=== PATIENT | male | born 1965 ===

== ENCOUNTER 2016-11-21 08:51 | Inpatient (IN) | payer MEDICAID, OTHER ==
[2016-11-21 08:51] VITALS: BMI 27.4
[2016-11-21 10:43] LABS: ADD MANUAL DIFF? NO
--- NOTE | 2016-11-21 10:45 | RAD ---
HISTORY: psych eval COMPARISON: No prior. FINDINGS: LUNGS: No active pulmonary disease. PLEURA: No significant pleural effusion identified, no pneumothorax apparent. CARDIOVASCULAR: Normal. OSSEOUS STRUCTURES: No significant abnormalities. VISUALIZED UPPER ABDOMEN: Normal. OTHER FINDINGS: None. IMPRESSION: No active disease.
[2016-11-21 10:46] LABS: BASO # 0.02 K/mm3 (0.0-2.0); BASO % 0.4 % (0.0-3.0); EOS % 0.4 % (1.5-5.0); GRAN % 73.4 % (50.0-68.0); LYMPH # 0.4 (1.2-3.4); LYMPH % 9.1 % (22.0-35.0); MEAN CELL VOLUME 61.3 fL (80.0-105.0); MEAN CORPUSCULAR HEMOGLOBIN 17.4 pg (25.0-35.0); MEAN CORPUSCULAR HGB CONC 28.4 g/dl (31.0-37.0); MONO # 0.8 (0.1-0.6); MONO % 16.7 % (1.0-6.0); PLATELET COUNT 72 10^3/uL (120.0-450.0); RED CELL DISTRIBUTION WIDTH 24.3 % (11.5-14.5); WHITE BLOOD COUNT 4.5 10^3/ul (4.5-11.0)
[2016-11-21 10:53] LABS: HEMATOCRIT 21.5 % (42.0-52.0)
[2016-11-21 10:56] LABS: ALB/GLOB RATIO 0.7 (1.1-1.8); ALKALINE PHOSPHATASE 160 U/L (38-133); ALT/SGPT 41 U/L (7-56); AST/SGOT 75 U/L (15-59); BILIRUBIN,TOTAL 3.7 mg/dL (0.2-1.3); BLOOD UREA NITROGEN 12 mg/dL (7-21); CALCIUM 7.9 mg/dL (8.4-10.5); CARBON DIOXIDE 24 mmol/L (21-33); CHLORIDE 98 mmol/L (98-107); GFR AFRICAN-AMERICAN > 60; GLUCOSE,RANDOM 116 mg/dL (70-110); POTASSIUM 3.1 mmol/L (3.6-5.0); SODIUM 130 mmol/L (132-148); TOTAL PROTEIN 7.7 g/dL (5.8-8.3)
[2016-11-21 11:00] LABS: PH,URINE 6.5 (4.7-8.0); URINE APPEARANCE CLEAR (CLEAR); URINE BILIRUBIN SMALL (NEGATIVE); URINE BLOOD TRACE-INTACT (NEGATIVE); URINE COLOR YELLOW (YELLOW); URINE GLUCOSE (UA) NEGATIVE (NEGATIVE); URINE KETONE NEGATIVE (NEGATIVE); URINE LEUKOCYTE ESTERASE NEGATIVE Leu/uL (NEGATIVE); URINE PROTEIN NEGATIVE mg/dL (<30 mg/dL)
[2016-11-21 11:05] LABS: URINE BACTERIA TRACE (NEG); URINE RBC 0 - 2 /hpf (0-2); URINE WBC NEGATIVE /hpf (0-6)
[2016-11-21] MEDS ORDERED: Multivitamin (MVI) 10 ML, Thiamine 100 MG, Folic Acid 1 MG in Sodium Chloride 0.9% 1,00... IV ONE (14:27)
[2016-11-21] MEDS ORDERED: Potassium Chloride 40 mEq/30 ml LIQ UD PO ONE (14:28)
[2016-11-21] MEDS ORDERED: Potassium Chloride 20 mEq/15 ml LIQ UD PO STA (14:30)
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
[2016-11-21 15:20] LABS: HEMATOCRIT 21.1 % (42.0-52.0)
[2016-11-21 15:28] LABS: IRON 10 ug/dL (45-180)
--- NOTE | 2016-11-21 16:45 | CARD ---
APPROVED REPORT EKG Measurement Heart [id number] <Conclusion> Normal sinus rhythm Prolonged QT Abnormal ECG
--- NOTE | 2016-11-21 17:32 | CP.PCM.PN ---
Addendum entered and electronically signed by Edd Collins DO 11/21/16 17: 55: Past medical hx was retrieved from previous charts as pt was confused and not able to answer any questions appropriately. PMD: unknown Past medical hx: GI bleed, gastric ulcers, esophageal varices, cirrhosis, Hep C , and alcohol abuse Past surgical hx: EGD Social hx: drinks alcohol daily (stopped 3 weeks ago), smokes marijuana, denies tobacco use Family hx: bipolar disorder Allergies: NKDA Meds: multivitamin Original Note: <Edd Collins - Last Filed: 11/21/16 17:21> Subjective - Date & Time of Evaluation Date of Evaluation: 11/21/16 Time of Evaluation: 17:21 - Subjective Subjective: Rapid Response Note INTER[employer]IAL [employer]ODUCER was called at 1710 in the ultrasound suite. Pt was an admitted patient that was in the ED still due to a lack of beds on the floor. Pt was having an abdominal ultrasound when he started displaying seizure-like activity at bedside for a short period of time. Pt was then transferred back to the emergency room where he started having another seizure. Initial vital signs were : Temp: 98.6, BP: 169/78, HR: 110, RR: 20, SpO2: 98%. Pt was found to be in a post-ictal state. Pt was given 2 mg of ativan at this time. Pt was able to adequately protect his airway. Upon interview of patient, he was confused and unable to appropriately answer questions. Pt was also noted to have urinary incontinence during that episode and did not have any evidence of tongue biting. Pt initially complained of hallucinations, which was his initial reason for presentation to the hospital. Pt was also anemic upon presentation to ED and was being transfused a unit of blood. ROS unaobtainable due to pt mental status. Objective - Vital Signs/Intake and Output Vital Signs (last 24 hours): Temp Pulse Resp BP Pulse Ox 98.4 F 99 H 16 136/70 99 11/21/16 16:19 11/21/16 16:19 11/21/16 16:19 11/21/16 16:19 11/21/16 13:00 Intake and Output: 11/21/16 11/21/16 06:59 18:59 Intake Total 0 Balance 0 - Medications Medications: Current Medications Chlordiazepoxide (Librium) 10 mg PO Q8 CESAR PRN Reason: Protocol Folic Acid (Folic Acid) 1 mg PO DAILY [facility] Multivitamins/Vitamin C 10 ml/Thiamine HCl 100 mg/ Folic Acid 1 mg/ Sodium Chloride 1,011.2 mls @ 100 mls/hr IV .Q10H7M ONE Stop: 11/22/16 00:33 Lorazepam (Ativan) 1 mg PO Q3 PRN; Protocol PRN Reason: SYMPTOMS OF ALCOHOL WITHDRAWAL Multivitamins (Thera Tab) 1 tab PO DAILY [facility] Ondansetron HCl (Zofran Inj) 4 mg IVP Q6 PRN PRN Reason: Nausea/Vomiting Pantoprazole Sodium (Protonix Ec Tab) 40 mg PO DAILY [facility] Thiamine HCl (Vitamin B1 Tab) 100 mg PO DAILY CESAR - Labs Labs: 11/21/16 14:57 - Constitutional Appears: Confused - Head Exam Head Exam: ATRAUMATIC, NORMAL INSPECTION, NORMOCEPHALIC - Eye Exam Eye Exam: Normal appearance, PERRL - ENT Exam ENT Exam: Mucous Membranes Moist, Normal Exam - Respiratory Exam Respiratory Exam: Clear to Ausculation Bilateral, NORMAL BREATHING PATTERN. absent: Rales, Rhonchi - Cardiovascular Exam Cardiovascular Exam: RRR, +S1, +S2 - GI/Abdominal Exam GI & Abdominal Exam: Soft, Tenderness (Diffuse tenderness to palpation), Normal Bowel Sounds - Exam Additional comments: Pants appear to be soiled with urine - Extremities Exam Extremities Exam: Normal Inspection. absent: Calf Tenderness, Pedal Edema - Neurological Exam Neurological Exam: Awake, CN II-XII Intact. absent: Alert, Oriented x3 - Skin Skin Exam: Intact, Normal Color, Warm Assessment and Plan - Assessment and Plan (Free Text) Plan: 55 y/o M with PMH of GI bleed, gastric ulcers, esophageal varices, cirrhosis, hep C, and alcohol abuse presents with [employer]UCER after witnesses seizure. Pt evaluated by house doctor and clearing hand. Pt will have Stat Head, abdomen, and pelvis CT. In addition, stat troponins, mag level, and phosphorus level were ordered. Pt will be transferred to the ICU for further care and management. Seizure - Head, abdomen, and pelvis CT stat - Ativan 2 mg given stat - Labs ordered: Troponin, magnesium, phosphorus - Seizure precautions - Neurochecks q1 x4, q4 x24 <Pilar Moss - Last Filed: 11/21/16 19:29> Objective - Vital Signs/Intake and Output Vital Signs (last 24 hours): Temp Pulse Resp BP Pulse Ox 98.4 F 97 H 16 131/72 99 11/21/16 18:22 11/21/16 19:06 11/21/16 19:06 11/21/16 19:06 11/21/16 19:06 Intake and Output: 11/21/16 11/22/16 18:59 06:59 Intake Total 325 Balance 325 - Medications Medications: Current Medications Chlordiazepoxide (Librium) 10 mg PO Q8 CESAR PRN Reason: Protocol Folic Acid (Folic Acid) 1 mg PO DAILY [facility]ES[facility] Multivitamins/Vitamin C 10 ml/Thiamine HCl 100 mg/ Folic Acid 1 mg/ Sodium Chloride 1,011.2 mls @ 100 mls/hr IV .Q10H7M ONE Stop: 11/22/16 00:33 Last Admin: 11/21/16 18:46 Dose: 100 mls/hr Levetiracetam (Keppra 500mg Ivpb) 100 mls @ 400 mls/hr IVPB Q12 CESAR Lorazepam (Ativan) 1 mg PO Q3 PRN; Protocol PRN Reason: SYMPTOMS OF ALCOHOL WITHDRAWAL Multivitamins (Thera Tab) 1 tab PO DAILY [facility] Ondansetron HCl (Zofran Inj) 4 mg IVP Q6 PRN PRN Reason: Nausea/Vomiting Pantoprazole Sodium (Protonix Ec Tab) 40 mg PO DAILY CESAR Thiamine HCl (Vitamin B1 Tab) 100 mg PO DAILY CESAR - Labs Labs: 11/21/16 14:57 Attending/Attestation - Attestation I have personally seen and examined this patient.: Yes I have fully participated in the care of the patient.: Yes I have reviewed all pertinent clinical information, including history, physical exam and plan: Yes Notes (Text): 11/21/16 19:[address] Scales.Pt seen By Dr frausto,accepted to the ICU. 11/21/16 19:29
--- NOTE | 2016-11-21 17:41 | CT ---
PROCEDURE: CT HEAD WITHOUT CONTRAST. HISTORY: r/o bleed COMPARISON: None available. TECHNIQUE: Axial computed tomography images were obtained through the head/brain without intravenous contrast. Radiation dose: Total exam DLP = 1602.58 mGy-cm. This CT exam was performed using one or more of the following dose reduction techniques: Automated exposure control, adjustment of the mA and/or kV according to patient size, and/or use of iterative reconstruction technique. FINDINGS: Examination mildly limited due to patient motion artifact. HEMORRHAGE: No intracranial hemorrhage. BRAIN: No mass effect or edema. No atrophy or chronic microvascular ischemic changes. VENTRICLES: Unremarkable. No hydrocephalus. CALVARIUM: Unremarkable. PARANASAL SINUSES: Unremarkable as visualized. No significant inflammatory changes. MASTOID AIR CELLS: Unremarkable as visualized. No inflammatory changes. OTHER FINDINGS: None. IMPRESSION: No intracranial mass, hemorrhage or evidence of acute infarct.
--- NOTE | 2016-11-21 18:04 | CT ---
PROCEDURE: CT Abdomen and Pelvis without intravenous contrast HISTORY: severe anemia, bleed COMPARISON: 07/10/2014. TECHNIQUE: Helical scanning 18 to the abdomen pelvis followed by sagittal coronal reconstructions.. Contrast Dose: Radiation dose: Total exam DLP = 574 mGy-cm. This CT exam was performed using one or more of the following dose reduction techniques: Automated exposure control, adjustment of the mA and/or kV according to patient size, and/or use of iterative reconstruction technique. FINDINGS: LOWER THORAX: Mild ground-glass density and interstitial changes. LIVER: Mild nodularity of the contour of the liver compatible with cirrhosis. GALLBLADDER AND BILE DUCTS: Unremarkable. PANCREAS: Unremarkable. No gross lesion or ductal dilatation. SPLEEN: Mild splenomegaly compatible with portal hypertension. ADRENALS: Unremarkable. No mass. KIDNEYS AND URETERS: Unremarkable. No hydronephrosis. No solid mass. VASCULATURE: Unremarkable. No aortic aneurysm. BOWEL: Unremarkable. No obstruction. No gross mural thickening. APPENDIX: Unremarkable. Normal appendix. PERITONEUM: Unremarkable. No free fluid. No free air. LYMPH NODES: Unremarkable. No enlarged lymph nodes. BLADDER: Unremarkable. REPRODUCTIVE: Unremarkable. BONES: No acute fracture. OTHER FINDINGS: None. IMPRESSION: Cirrhosis with splenomegaly compatible with portal hypertension.
--- NOTE | 2016-11-21 18:13 | US ---
HISTORY: anemia, organomegaly COMPARISON: None. TECHNIQUE: Sonographic evaluation of the abdomen. FINDINGS: LIVER: Measures 15.7 cm. Diffusely increased echogenicity of the liver parenchyma. Consistent with fatty infiltrate. Nodular contour suggestive of hepatic cirrhosis. No mass. No biliary ductal dilatation. GALLBLADDER: No cholelithiasis. Mild nonspecific mural thickening. No pericholecystic fluid. Negative sonographic Cadena's sign. COMMON BILE DUCT: Measures 5 mm. No stones. No dilatation. PANCREAS: Limited visualization RIGHT KIDNEY: Measures 11.8cm. Normal echogenicity. No calculus, mass, or hydronephrosis. LEFT KIDNEY: Measures 12.3cm. Normal echogenicity. No calculus, mass, or hydronephrosis. SPLEEN: Normal in size and contour. No mass. AORTA: No aneurysmal dilatation. IVC: Unremarkable. OTHER FINDINGS: None. IMPRESSION: Wake probable hepatic cirrhosis. Fatty liver. Nonspecific mild mural thickening of the gallbladder. No evidence of cholelithiasis or cholecystitis.
[2016-11-21 19:47] LABS: MEAN CELL VOLUME 63.7 fL (80.0-105.0); MEAN CORPUSCULAR HEMOGLOBIN 18.4 pg (25.0-35.0); MEAN CORPUSCULAR HGB CONC 28.9 g/dl (31.0-37.0); PLATELET COUNT 65 10^3/uL (120.0-450.0); RED CELL DISTRIBUTION WIDTH 25.4 % (11.5-14.5); WHITE BLOOD COUNT 3.3 10^3/ul (4.5-11.0)
[2016-11-21 19:54] LABS: VENOUS BLOOD GAS BASE EXCESS -1.1 mmol/L (0.0-2.0); VENOUS BLOOD PH 7.33 (7.32-7.43)
[2016-11-21 19:55] LABS: HEMATOCRIT 21.1 % (42.0-52.0)
[2016-11-21 19:57] LABS: PHOSPHOROUS 3.1 mg/dL (2.5-4.5)
[2016-11-21 20:08] LABS: INR 1.68 (0.93-1.08)
[2016-11-21 20:09] LABS: TROPONIN I 0.02 ng/mL
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
[2016-11-21] MEDS: levETIRAcetam 500mg IVPB 100 ML IVPB SCH (22:19)
[2016-11-21 23:25] LABS: VENOUS BLOOD GAS BASE EXCESS 0.1 mmol/L (0.0-2.0); VENOUS BLOOD PH 7.44 (7.32-7.43)
[2016-11-22 02:17] LABS: HEMATOCRIT 24.6 % (42.0-52.0); MEAN CELL VOLUME 65.1 fL (80.0-105.0); MEAN CORPUSCULAR HEMOGLOBIN 19.3 pg (25.0-35.0); MEAN CORPUSCULAR HGB CONC 29.7 g/dl (31.0-37.0); PLATELET COUNT 68 10^3/uL (120.0-450.0); RED CELL DISTRIBUTION WIDTH 26.6 % (11.5-14.5); WHITE BLOOD COUNT 5.7 10^3/ul (4.5-11.0)
[2016-11-22 06:21] LABS: ALB/GLOB RATIO 0.7 (1.1-1.8); ALKALINE PHOSPHATASE 141 U/L (38-133); ALT/SGPT 39 U/L (7-56); AST/SGOT 91 U/L (15-59); BILIRUBIN,TOTAL 3.7 mg/dL (0.2-1.3); BLOOD UREA NITROGEN 7 mg/dL (7-21); CALCIUM 7.3 mg/dL (8.4-10.5); CARBON DIOXIDE 27 mmol/L (21-33); CHLORIDE 104 mmol/L (98-107); CHOLESTEROL 106 mg/dL (130-200); GFR AFRICAN-AMERICAN > 60; GLUCOSE,RANDOM 96 mg/dL (70-110); MAGNESIUM 2.1 mg/dL (1.7-2.2); PHOSPHOROUS 3.3 mg/dL (2.5-4.5); POTASSIUM 3.3 mmol/L (3.6-5.0); SODIUM 136 mmol/L (132-148); TOTAL PROTEIN 6.6 g/dL (5.8-8.3)
[2016-11-22 06:23] LABS: HEMATOCRIT 25.1 % (42.0-52.0); MEAN CELL VOLUME 66.2 fL (80.0-105.0); MEAN CORPUSCULAR HEMOGLOBIN 19.5 pg (25.0-35.0); MEAN CORPUSCULAR HGB CONC 29.5 g/dl (31.0-37.0); PLATELET COUNT 71 10^3/uL (120.0-450.0); RED CELL DISTRIBUTION WIDTH 26.3 % (11.5-14.5); WHITE BLOOD COUNT 5.6 10^3/ul (4.5-11.0)
[2016-11-22 06:30] LABS: INR 1.55 (0.93-1.08); PARTIAL THROMBOPLASTIN TIME 31.7 Seconds (23.7-30.8)
[2016-11-22 06:37] LABS: ADD MANUAL DIFF? YES
[2016-11-22] MEDS ORDERED: Lactulose 10 gm/15 ml (Rectal Use) PR ONE ×2 (07:52→16:00)
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
[2016-11-22] MEDS ORDERED: Folic Acid 1 MG, Thiamine 100 MG, Multivitamin (MVI) 10 ML in Dextrose 5% In Water 1,00... IV SCH (08:15)
--- NOTE | 2016-11-22 09:16 | PN ---
DATE: 11/22/2016 SUBJECTIVE: The patient is resting in bed, continues to be confused, requiring soft restraints. The patient has no obvious respiratory distress and no complaints of pain, no nausea or vomiting, no [place] rrhea, no fever or chills at this time. PHYSICAL EXAMINATION: VITAL SIGNS: Temperature is 98.2, pulse is 95, respirations are 18, and BP is 130/76, O2 saturation is 100% on room air. HEENT: Head is atraumatic, normocephalic. Eyes reactive to light. Ears, nose and throat seemed to be within normal limits. NECK: Supple, no JVD, no thyroid enlargement, no lymph nodes. CARDIOVASCULAR: Heart has a regular rate and rhythm. Normal S1, S2. LUNGS: Reveal good breath sounds bilaterally. ABDOMEN: Soft, nontender, normal bowel sounds. No organomegaly noted. GENITALIA AND RECTAL: Deferred. MUSCULOSKELETAL: No joint deformities. EXTREMITIES: Reveal no significant edema. NEUROLOGIC: The patient continues to have some altered mental status, but moving all extremities. N ote that the patient is in alcohol withdrawal. LABORATORY DATA: Reveal that he has a white count of 5.6, hemoglobin is 7.4, hematocrit is 25.1 with platelets of 71,000. Sodium is 136, potassium 3.3, chloride 104, CO2 of 27 with a BUN of 7, creatin ine of 0.6, a glucose of 96. IMPRESSION: The patient has ETOH abuse and ETOH withdrawal. Note that the patient did have a seizur e felt to be an ETOH withdrawal seizure. The patient has anemia also felt to be secondary to ETOH tucker [place] marrow suppression. There is no active bleeding site. The patient has thrombocytopenia, has a hi story of cirrhosis, hepatitis C as well as schizophrenia. PLAN: We will monitor his hemoglobin closely and continue the patient on Keppra for the seizures. C ontinue with IV hydration. The patient is getting lactulose and we will continue with multivitamins as well as Librium when needed. The patient is also getting Pepcid and we will continue to follow anabelle felix along with the other consultants and the primary care doctor. Andrade Frye MD cc: [id number] TT: 11/22/2016 09:15:07 Confirmation # [id number] Dictation # [id number]
[2016-11-22 09:49] LABS: BAND 2 % (0-2); NEUTROPHIL 75 % (50.0-70.0)
[2016-11-22 09:50] LABS: ANISOCYTOSIS 2+; ATYPICAL LYMPHOCYTE 2 % (0.0-0.0); HYPOCHROMIA 2+; MICROCYTOSIS 2+; OVALOCYTES SLIGHT; PLATELET ESTIMATE LOW (NORMAL); POIKILOCYTOSIS 1+; POLYCHROMASIA SLIGHT; TEAR DROP CELLS SLIGHT
[2016-11-22 09:51] LABS: TARGET CELLS 1+
[2016-11-22] MEDS: Folic Acid 1 MG, Thiamine 100 MG, Multivitamin (MVI) 10 ML, Potassium Chloride 40 MEQ i... IV SCH ×2 (09:55→19:00)
[2016-11-22] MEDS: Multivitamin Therapeutic Tab PO SCH (09:57)
[2016-11-22] MEDS: levETIRAcetam 500mg IVPB 100 ML IVPB SCH ×2 (10:00→21:35)
[2016-11-22] MEDS ORDERED: Pantoprazole 40 mg EC Tab PO SCH (10:00)
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
--- NOTE | 2016-11-22 12:13 | CP.PCM.PCO ---
Physician Communication Note - Physician Communication Note Physician Communication Note: Pt is too sedated for evaluation, to f/u at later date. D/W Dr. Scales
[2016-11-22 13:29] LABS: HEMATOCRIT 26.6 % (42.0-52.0); MEAN CELL VOLUME 66.3 fL (80.0-105.0); MEAN CORPUSCULAR HEMOGLOBIN 19.7 pg (25.0-35.0); MEAN CORPUSCULAR HGB CONC 29.7 g/dl (31.0-37.0); PLATELET COUNT 78 10^3/uL (120.0-450.0); RED CELL DISTRIBUTION WIDTH 26.2 % (11.5-14.5); WHITE BLOOD COUNT 5.7 10^3/ul (4.5-11.0)
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
[2016-11-22] MEDS ORDERED: Ferrous Sulfate 300 mg/5 mL Liq UD PO SCH (16:00)
[2016-11-23] MEDS: Folic Acid 1 MG, Thiamine 100 MG, Multivitamin (MVI) 10 ML, Potassium Chloride 40 MEQ i... IV SCH ×2 (05:03→17:49)
[2016-11-23 06:36] LABS: ADD MANUAL DIFF? NO
[2016-11-23 06:58] LABS: ALB/GLOB RATIO 0.7 (1.1-1.8); ALKALINE PHOSPHATASE 142 U/L (38-133); ALT/SGPT 43 U/L (7-56); AST/SGOT 67 U/L (15-59); BILIRUBIN,TOTAL 4.2 mg/dL (0.2-1.3); BLOOD UREA NITROGEN 5 mg/dL (7-21); CARBON DIOXIDE 28 mmol/L (21-33); CHLORIDE 102 mmol/L (98-107); GFR AFRICAN-AMERICAN > 60; GLUCOSE,RANDOM 104 mg/dL (70-110); POTASSIUM 3.4 mmol/L (3.6-5.0); SODIUM 135 mmol/L (132-148); TOTAL PROTEIN 6.4 g/dL (5.8-8.3)
[2016-11-23 07:17] LABS: BASO # 0.04 K/mm3 (0.0-2.0); BASO % 0.9 % (0.0-3.0); EOS # 0.2 (0.0-0.7); EOS % 5.2 % (1.5-5.0); GRAN # 2.56 (1.4-6.5); GRAN % 58.2 % (50.0-68.0); HEMATOCRIT 25.6 % (42.0-52.0); LYMPH # 0.5 (1.2-3.4); LYMPH % 11.4 % (22.0-35.0); MEAN CORPUSCULAR HEMOGLOBIN 19.6 pg (25.0-35.0); MEAN CORPUSCULAR HGB CONC 29.3 g/dl (31.0-37.0); MONO # 1.1 (0.1-0.6); MONO % 24.3 % (1.0-6.0); PLATELET COUNT 81 10^3/uL (120.0-450.0); RED CELL DISTRIBUTION WIDTH 26.4 % (11.5-14.5); WHITE BLOOD COUNT 4.4 10^3/ul (4.5-11.0)
--- NOTE | 2016-11-23 07:44 | CP.PCM.PN ---
<NiurkaJordan - Last Filed: 11/23/16 08:50> Subjective - Date & Time of Evaluation Date of Evaluation: 11/23/16 Time of Evaluation: 07:44 - Subjective Subjective: PGY4 GI Fellow Progress Note Patient seen and examined bedside this morning. The patient is much more alert and conversant today. Denies any complaints at present. Had 3 BM yesterday following administration of rectal and PO lactulose. He denies any abdominal pain, fever, chills, nausea, vomiting. Does recall some of the events which came to bring him to the hospital but details are hazy. Denies recent EtOH use. 12 system ROS performed and negative except where stated. Objective - Vital Signs/Intake and Output Vital Signs (last 24 hours): Temp Pulse Resp BP Pulse Ox 99.5 F 105 H 17 146/84 100 11/22/16 11:45 11/23/16 07:00 11/23/16 07:00 11/23/16 06:00 11/23/16 05:00 Intake and Output: 11/23/16 11/23/16 06:59 18:59 Intake Total 1800 Output Total 700 Balance 1100 - Medications Medications: Current Medications Chlordiazepoxide (Librium) 10 mg PO Q8 [facility] PRN Reason: Protocol Last Admin: 11/23/16 05:00 Dose: 10 mg Folic Acid (Folic Acid) 1 mg PO DAILY [facility] Last Admin: 11/22/16 09:56 Dose: Not Given Levetiracetam (Keppra 500mg Ivpb) 100 mls @ 400 mls/hr IVPB Q12 [facility] Last Admin: 11/22/16 21:35 Dose: 400 mls/hr Folic Acid 1 mg/ Thiamine HCl 100 mg/ Multivitamins/Vitamin C 10 ml/ Potassium Chloride 40 meq/ Dextrose 1,031.2 mls @ 100 mls/hr IV .[id number] [facility] Last Admin: 11/23/16 05:03 Dose: 100 mls/hr Lactulose (Enulose) 30 gm PO BID [facility] Last Admin: 11/22/16 17:50 Dose: 30 gm Lorazepam (Ativan) 1 mg IVP Q2H PRN; Protocol PRN Reason: Symptoms of alcohol withdrawl Last Admin: 11/22/16 04:12 Dose: 1 mg Multivitamins (Thera Tab) 1 tab PO DAILY [facility] Last Admin: 11/22/16 09:57 Dose: Not Given Ondansetron HCl (Zofran Inj) 4 mg IVP Q6 PRN PRN Reason: Nausea/Vomiting Pantoprazole Sodium (Protonix Inj) 40 mg IVP Q12 [facility] Last Admin: 11/22/16 21:35 Dose: 40 mg Thiamine HCl (Vitamin B1 Tab) 100 mg PO DAILY [facility] Last Admin: 11/22/16 09:57 Dose: Not Given - Labs Labs: 11/23/16 06:00 11/23/16 06:00 PT 16.7 Seconds (9.9-11.8) H 11/22/16 05:30 INR 1.55 (0.93-1.08) H 11/22/16 05:30 APTT 31.7 Seconds (23.7-30.8) H 11/22/16 05:30 - Constitutional Appears: Non-toxic, No Acute Distress - Eye Exam Eye Exam: EOMI, PERRL - ENT Exam ENT Exam: Mucous Membranes Dry - Respiratory Exam Respiratory Exam: Clear to Ausculation Bilateral. absent: Rales, Rhonchi, Wheezes - Cardiovascular Exam Cardiovascular Exam: RRR, +S1, +S2 - GI/Abdominal Exam GI & Abdominal Exam: Soft, Normal Bowel Sounds. absent: Distended, Firm, Guarding, Rigid, Tenderness - Extremities Exam Extremities Exam: Normal Inspection. absent: Pedal Edema - Neurological Exam Neurological Exam: Alert, Awake. absent: Oriented x3 (AAOx2 (person, time)) - Psychiatric Exam Psychiatric exam: Normal Affect, Normal Mood - Skin Skin Exam: Dry, Warm Assessment and Plan - Assessment and Plan (Free Text) Assessment: Patient is a 51yo male with PMHx significant for EtOH abuse, decompensated cirrhosis with esophageal varices, HCV, PUD who was brought to our facility with altered mentation. -Decompensated cirrhosis with h/o esophageal varices -Acute encephalopathy, suspect hepatic encephalopathy complicated by withdrawal seizures/post-ictal state -EtOH withdrawal seizure -Pancytopenia, suspect myelosuppression in setting of chronic EtOH abuse -Iron deficiency anemia Plan: -Slight increase in hyperbilirubinemia, LFTs otherwise relatively unchanged - check direct bilirubin level -Still with no overt GI bleeding -Passed 3 BM since initiation of lactulose, more alert now; continue at 30g PO BID and titrate to 2-3 BM/day -Minimize sedating agents as possible -On Keppra given witnessed seizures in ED/Ultrasound -Patient would ultimately benefit from EGD (h/o varices, cirrhosis)/colonoscopy (screening) but in absence of overt blood loss, these are non-emergent; will discuss plan for EGD early this week -Monitor CBC, CMP, INR <Stephan Becerra MD - Last Filed: 11/23/16 18:25> Objective - Vital Signs/Intake and Output Vital Signs (last 24 hours): Temp Pulse Resp BP Pulse Ox 99.0 F 108 H 23 132/83 95 11/23/16 16:00 11/23/16 17:05 11/23/16 17:05 11/23/16 17:05 11/23/16 17:05 Intake and Output: 11/23/16 11/23/16 06:59 18:59 Intake Total 1800 2080 Output Total 700 1475 Balance 1100 605 - Medications Medications: Current Medications Chlordiazepoxide (Librium) 10 mg PO Q8 [facility] PRN Reason: Protocol Last Admin: 11/23/16 13:03 Dose: 10 mg Folic Acid (Folic Acid) 1 mg PO DAILY [facility] Last Admin: 11/23/16 09:22 Dose: 1 mg Levetiracetam (Keppra 500mg Ivpb) 100 mls @ 400 mls/hr IVPB Q12 [facility] Last Admin: 11/23/16 09:22 Dose: 400 mls/hr Folic Acid 1 mg/ Thiamine HCl 100 mg/ Multivitamins/Vitamin C 10 ml/ Potassium Chloride 40 meq/ Dextrose 1,031.2 mls @ 100 mls/hr IV .[id number] [facility] Last Admin: 11/23/16 17:49 Dose: 100 mls/hr Lactulose (Enulose) 30 gm PO BID [facility] Last Admin: 11/23/16 17:16 Dose: 30 gm Lorazepam (Ativan) 1 mg IVP Q2H PRN; Protocol PRN Reason: Symptoms of alcohol withdrawl Last Admin: 11/22/16 04:12 Dose: 1 mg Multivitamins (Thera Tab) 1 tab PO DAILY [facility] Last Admin: 11/23/16 09:22 Dose: 1 tab Ondansetron HCl (Zofran Inj) 4 mg IVP Q6 PRN PRN Reason: Nausea/Vomiting Pantoprazole Sodium (Protonix Inj) 40 mg IVP Q12 [facility] Last Admin: 11/23/16 09:22 Dose: 40 mg Thiamine HCl (Vitamin B1 Tab) 100 mg PO DAILY [facility] Last Admin: 11/23/16 09:22 Dose: 100 mg - Labs Labs: 11/23/16 06:00 11/23/16 06:00 PT 16.7 Seconds (9.9-11.8) H 11/22/16 05:30 INR 1.55 (0.93-1.08) H 11/22/16 05:30 APTT 31.7 Seconds (23.7-30.8) H 11/22/16 05:30 Attending/Attestation - Attestation I have personally seen and examined this patient.: Yes I have fully participated in the care of the patient.: Yes I have reviewed all pertinent clinical information, including history, physical exam and plan: Yes Notes (Text): 11/23/16 18:24 Patient seen with GI fellow on rounds. 51 yr old male with PMHx significant for EtOH abuse, decompensated cirrhosis with esophageal varices, HCV, PUD who was brought to our facility with altered mentation likely with HE. May have component of withdrawal seizures. Pancytopenia, suspect myelosuppression in setting of chronic EtOH abuse. Last EGD in 02/2015 showing Grade A varices and antral ulcers. HE resolved after lactulose. Will benefit from EGd due to past history of ulcer and varices. Currently drinking alcohol hence not a transplant candidate. Will continue Lactulose 30g PO BID ; titrate to 2 BM/day. Daily MELD labs. Current MELD -19. Needs cTAP with triple phase contrast to r/o HCC
--- NOTE | 2016-11-23 08:41 | PN ---
DATE: 11/23/2016 SUBJECTIVE: The patient is resting in bed, continues to be confused, in soft restraints. The patien t has no distress, no obvious pain, no shortness of breath, no nauseousness, no vomiting or diarrhea and no fever, chills at this time. Continues to get IV fluids. PHYSICAL EXAMINATION: VITAL SIGNS: His temperature is 99.5, his pulse is 109, respirations are 16, blood pressure is 115/6 6. SKIN: Warm and dry. HEAD: Atraumatic, normocephalic. EYES: Reactive to light. EARS, NOSE AND THROAT: Seem to be within normal limits. NECK: Supple. No JVD, no thyroid enlargement, no lymph nodes. HEART: Has a regular rate and rhythm. Normal S1, S2. LUNGS: Reveal good breath sounds bilaterally. ABDOMEN: Soft, decreased bowel sounds. GENITALIA AND RECTAL: Deferred. MUSCULOSKELETAL: No joint deformities. EXTREMITIES: Reveal trace lower extremity edema. NEUROLOGIC: He is slightly confused secondary to ETOH withdrawal. LABORATORIES: Reveal a white count of 4.4, hemoglobin of 7.5, hematocrit 25.6 with platelets of 81,0 00. Sodium is 136, potassium 3.3, chloride 104, CO2 of 27, BUN of 7, creatinine of 0.6 and glucose o f 96. IMPRESSION: The patient has ethyl alcohol abuse and ethyl alcohol withdrawal. The patient had ethyl alcohol withdrawal seizure and is noted to have anemia and this is felt to be secondary to ethyl alc ohol bone marrow suppression. There is no active bleeding. The patient has thrombocytopenia, cirrho sis of the liver, hepatitis C as well as schizophrenia. PLAN: We will continue to monitor his hemoglobin closely. He is on Keppra for the seizures. The charissa araujo is getting IV hydration and we will continue the lactulose, multivitamins, Librium, and Pepcid. Andrade Frye MD cc: [id number] TT: 11/23/2016 08:41:22 Confirmation # [id number] Dictation # [id number]
[2016-11-23] MEDS: levETIRAcetam 500mg IVPB 100 ML IVPB SCH ×2 (09:22→22:12)
[2016-11-23] MEDS: Multivitamin Therapeutic Tab PO SCH (09:22)
[2016-11-23] MEDS ORDERED: Potassium Chloride 20 mEq ER Tab PO ONE (12:12)
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
[2016-11-24] MEDS ORDERED: Dextrose 5%/0.45% NS 1,000 ML IV SCH (05:45)
[2016-11-24 05:57] LABS: HEMATOCRIT 26.5 % (42.0-52.0); MEAN CELL VOLUME 66.8 fL (80.0-105.0); MEAN CORPUSCULAR HEMOGLOBIN 19.1 pg (25.0-35.0); MEAN CORPUSCULAR HGB CONC 28.7 g/dl (31.0-37.0); PLATELET COUNT 110 10^3/uL (120.0-450.0); RED CELL DISTRIBUTION WIDTH 27.1 % (11.5-14.5)
[2016-11-24 06:00] LABS: ALB/GLOB RATIO 0.7 (1.1-1.8); ALKALINE PHOSPHATASE 166 U/L (38-133); ALT/SGPT 41 U/L (7-56); AST/SGOT 80 U/L (15-59); BILIRUBIN,TOTAL 3.8 mg/dL (0.2-1.3); BLOOD UREA NITROGEN 3 mg/dL (7-21); CALCIUM 7.2 mg/dL (8.4-10.5); CARBON DIOXIDE 28 mmol/L (21-33); CHLORIDE 102 mmol/L (95-110); GFR AFRICAN-AMERICAN > 60; GLUCOSE,RANDOM 97 mg/dL (70-110); POTASSIUM 4.1 mmol/L (3.6-5.0); SODIUM 135 mmol/L (132-148); TOTAL PROTEIN 6.4 g/dL (5.8-8.3)
[2016-11-24 06:19] LABS: ADD MANUAL DIFF? YES
[2016-11-24 06:35] LABS: NEUTROPHIL 58 % (50.0-70.0)
[2016-11-24 06:36] LABS: ANISOCYTOSIS 1+; BAND 2 % (0-2); BASOPHIL 2 % (0.0-1.0); EOSINOPHIL 4 % (0.0-3.0); HYPOCHROMIA 2+; PLATELET ESTIMATE LOW (NORMAL)
[2016-11-24 06:38] LABS: MICROCYTOSIS 1+; TARGET CELLS SLIGHT
[2016-11-24] MEDS ORDERED: Midazolam 2 MG/2 ML VIAL ONE (08:24)
[2016-11-24] MEDS ORDERED: Etomidate 20 mg/10ml Inj IV ONE (08:24)
[2016-11-24] MEDS ORDERED: Propofol 10 mg/ml Inj (20 ML) ONE (08:24)
[2016-11-24] MEDS ORDERED: Lidocaine 1% Inj (20ml) ONE (08:25)
--- NOTE | 2016-11-24 09:03 | CP.PCM.PN ---
Subjective - Date & Time of Evaluation Date of Evaluation: 11/24/16 Time of Evaluation: 08:58 - Subjective Subjective: Patient seen and examined. No acute events overnight, altered mental status resolved. He complains of mild LUQ abdominal pain when lying on his side, otherwise denies nausea, vomiting, diarrhea. s/p EGD today showing three small superficial antral ulcers, LA grade A distal erosive esophagitis. Objective - Vital Signs/Intake and Output Vital Signs (last 24 hours): Temp Pulse Resp BP Pulse Ox 98.5 F 98 H 20 146/73 100 11/24/16 04:00 11/24/16 07:00 11/24/16 07:00 11/24/16 07:00 11/24/16 08:27 Intake and Output: 11/24/16 11/24/16 06:59 18:59 Intake Total 1200 Output Total 1200 Balance 0 - Medications Medications: Current Medications Chlordiazepoxide (Librium) 10 mg PO Q8 [facility] PRN Reason: Protocol Last Admin: 11/24/16 05:58 Dose: Not Given Folic Acid (Folic Acid) 1 mg PO DAILY [facility] Last Admin: 11/23/16 09:22 Dose: 1 mg Levetiracetam (Keppra 500mg Ivpb) 100 mls @ 400 mls/hr IVPB Q12 [facility] Last Admin: 11/23/16 22:12 Dose: 400 mls/hr Folic Acid 1 mg/ Thiamine HCl 100 mg/ Multivitamins/Vitamin C 10 ml/ Potassium Chloride 40 meq/ Dextrose 1,031.2 mls @ 100 mls/hr IV .[id number] [facility] Last Admin: 11/23/16 17:49 Dose: 100 mls/hr Dextrose/Sodium Chloride (Dextrose 5%/0.45% Ns 1000 Ml) 1,000 mls @ 80 mls/hr IV .[id number] [facility] Last Admin: 11/24/16 05:45 Dose: 80 mls/hr Lactulose (Enulose) 30 gm PO BID [facility] Last Admin: 11/23/16 17:16 Dose: 30 gm Lorazepam (Ativan) 1 mg IVP Q2H PRN; Protocol PRN Reason: Symptoms of alcohol withdrawl Last Admin: 11/22/16 04:12 Dose: 1 mg Multivitamins (Thera Tab) 1 tab PO DAILY [facility] Last Admin: 11/23/16 09:22 Dose: 1 tab Ondansetron HCl (Zofran Inj) 4 mg IVP Q6 PRN PRN Reason: Nausea/Vomiting Pantoprazole Sodium (Protonix Inj) 40 mg IVP Q12 [facility] Last Admin: 11/23/16 22:00 Dose: 40 mg Thiamine HCl (Vitamin B1 Tab) 100 mg PO DAILY [facility] Last Admin: 11/23/16 09:22 Dose: 100 mg - Labs Labs: 11/24/16 05:30 11/24/16 05:30 PT 16.7 Seconds (9.9-11.8) H 11/22/16 05:30 INR 1.55 (0.93-1.08) H 11/22/16 05:30 APTT 31.7 Seconds (23.7-30.8) H 11/22/16 05:30 Assessment and Plan - Assessment and Plan (Free Text) Assessment: HCV/ETOH decompensated cirrhosis Altered mental status, resolved - hepatic encephalopathy Iron deficiency anemia No evidence of recent/active bleeding noted on EGD today Plan: - Advance diet slowly as tolerated - Continue with lactulose therapy, titrate so patient has 3 bowel movements daily - Continue with PPI therapy - Continue to monitor H/H, no overt bleeding noted - Await biopsy results from EGD - ETOH cessation counseling - Patient would benefit from triple phase liver CT for evaluation of HCC - No ongoing GI issues, patient currently not candidate for liver transplant evaluation or treatment of HCV given ongoing ETOH abuse. Will sign off case, please reconsult as necessary, thank you.
[2016-11-24] MEDS: Multivitamin Therapeutic Tab PO SCH (09:16)
[2016-11-24] MEDS: levETIRAcetam 500mg IVPB 100 ML IVPB SCH (09:17)
[2016-11-24] MEDS: Folic Acid 1 MG, Thiamine 100 MG, Multivitamin (MVI) 10 ML, Potassium Chloride 40 MEQ i... IV SCH (09:49)
[2016-11-24 13:24] LABS: FOLATE 12.2 ng/mL
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
[2016-11-25 00:45] VITALS: O2SAT 94
[2016-11-25 07:44] LABS: ADD MANUAL DIFF? NO
[2016-11-25 08:02] LABS: BASO # 0.08 K/mm3 (0.0-2.0); EOS # 0.3 (0.0-0.7); EOS % 8.1 % (1.5-5.0); GRAN # 1.78 (1.4-6.5); GRAN % 44.8 % (50.0-68.0); HEMATOCRIT 26.6 % (42.0-52.0); LYMPH # 0.9 (1.2-3.4); LYMPH % 21.7 % (22.0-35.0); MEAN CELL VOLUME 66.8 fL (80.0-105.0); MEAN CORPUSCULAR HEMOGLOBIN 19.6 pg (25.0-35.0); MEAN CORPUSCULAR HGB CONC 29.3 g/dl (31.0-37.0); MONO # 0.9 (0.1-0.6); MONO % 23.4 % (1.0-6.0); PLATELET COUNT 123 10^3/uL (120.0-450.0); RED CELL DISTRIBUTION WIDTH 27.9 % (11.5-14.5)
[2016-11-25 08:13] LABS: ALB/GLOB RATIO 0.7 (1.1-1.8); ALKALINE PHOSPHATASE 172 U/L (38-133); ALT/SGPT 42 U/L (7-56); AST/SGOT 75 U/L (15-59); BILIRUBIN,TOTAL 2.7 mg/dL (0.2-1.3); BLOOD UREA NITROGEN 6 mg/dL (7-21); CALCIUM 7.5 mg/dL (8.4-10.5); CARBON DIOXIDE 27 mmol/L (21-33); CHLORIDE 103 mmol/L (98-107); GFR AFRICAN-AMERICAN > 60; GLUCOSE,RANDOM 94 mg/dL (70-110); MAGNESIUM 1.8 mg/dL (1.7-2.2); PHOSPHOROUS 3.1 mg/dL (2.5-4.5); SODIUM 136 mmol/L (132-148); TOTAL PROTEIN 6.3 g/dL (5.8-8.3)
[2016-11-25] MEDS ORDERED: Multivitamin (MVI) 10 ML, Thiamine 100 MG, Folic Acid 1 MG in Dextrose 5% In Water 1,00... IV ONE (08:46)
[2016-11-25] MEDS: Multivitamin Therapeutic Tab PO SCH (10:03)
[2016-11-25 10:06] VITALS: BP 128/87; PULSE 91; RESP 18; TEMP 98.9
[2016-11-25] MEDS ORDERED: Pneumococcal 23-Valent Vaccine IM ONE (13:03)
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
== END 2016-11-25 14:30 | disposition home or self-care (01) | DRG 574 ==
LOC: ED 08:51 → ERH 13:05 → CCU 19:55 → 3RNO 11-24 12:41
PROVIDERS: ADMIT Internal Medicine; ATTEND Hospitalist
PROC: 30233N1 Transfusion of Nonautologous Red Blood Cells into Peripheral Vein, Percutaneous Approach (ICD-10-PCS; principal; 2016-11-21)
PROC: 0DB68ZX Excision of Stomach, Via Natural or Artificial Opening Endoscopic, Diagnostic (ICD-10-PCS; 2016-11-24)
DX: D50.9 Iron deficiency anemia, unspecified (principal); K72.90 Hepatic failure, unspecified without coma; D61.818 Other pancytopenia; I85.10 Secondary esophageal varices without bleeding; K76.6 Portal hypertension; F10.239 Alcohol dependence with withdrawal, unspecified; K74.60 Unspecified cirrhosis of liver; B19.20 Unspecified viral hepatitis C without hepatic coma; E87.6 Hypokalemia; F20.9 Schizophrenia, unspecified; G40.89 Other seizures; K25.9 Gastric ulcer, unspecified as acute or chronic, without hemorrhage or perforation; F12.90 Cannabis use, unspecified, uncomplicated; K29.70 Gastritis, unspecified, without bleeding; K20.9 Esophagitis, unspecified; K44.9 Diaphragmatic hernia without obstruction or gangrene; Y90.0 Blood alcohol level of less than 20 mg/100 ml; K76.0 Fatty (change of) liver, not elsewhere classified; Z78.1 Physical restraint status

== ENCOUNTER 2017-01-04 12:53 | Inpatient (IN) | payer MEDICAID, OTHER ==
[2017-01-04 12:59] VITALS: BMI 29.1
[2017-01-04] MEDS ORDERED: Sodium Chloride 0.9% 1,000 ML IV STA ×2 (13:22→14:14)
--- NOTE | 2017-01-04 13:25 | ED PDOC ---
Arrival/HPI - General Chief Complaint: GI Problem Time Seen by Provider: 01/04/17 12:58 Historian: Patient - History of Present Illness Narrative History of Present Illness (Text): 01/04/17 13:15 A 51 year old male, whose past medical history includes hep C, presents to the emergency department complaining of generalized weakness and dizziness since this morning. Patient reports leg swelling and an episode of hematemesis about 2 hours ago. Patient also notes hematochezia during last bowel movement and currently feels nauseous. Patient denies feeling shaky, chest pain, shortness of breath or any other complaints at this time. Patient notes to drinking alcohol, last drink about 2 hours ago. Time/Duration: 1-3 hours Symptom Onset: Sudden Symptom Course: Unchanged Activities at Onset: Rest Context: Home Past Medical History - Provider Review Nursing Documentation Reviewed: Yes - Infectious Disease Hx of Infectious Diseases: None - Tetanus Immunization Tetanus Immunization: Unknown - Cardiac Hx Cardiac Disorders: No - Pulmonary Hx Respiratory Disorders: Yes Other/Comment: Pt. had some type of lung infection 10 years ago - Neurological Hx Neurological Disorder: No - HEENT Hx HEENT Disorder: No - Renal Hx Renal Disorder: No - Endocrine/Metabolic Hx Endocrine Disorders: No - Hematological/Oncological Hx Anemia: Yes Hx Blood Transfusions: Yes (november 2016) Hx Blood Transfusion Reaction: No Hx Cirrhosis: Yes Hx Hepatitis C: Yes - Integumentary Hx Dermatological Disorder: No - Musculoskeletal/Rheumatological Hx Musculoskeletal Disorders: Yes Hx Falls: No Hx Fractures: Yes (old left shoulder and nose fracture) - Gastrointestinal Hx Gastrointestinal Disorders: Yes Hx Vomiting: Yes Other/Comment: issue with liver. - Genitourinary/Gynecological Hx Genitourinary Disorders: No - Psychiatric Hx Psychophysiologic Disorder: No Hx Substance Use: No - Surgical History Other/Comment: nose surgery - Anesthesia Hx Anesthesia Reactions: No Hx Malignant Hyperthermia: No - Suicidal Assessment Feels Threatened In Home Enviroment: No Family/Social History - Physician Review Nursing Documentation Reviewed: Yes Family/Social History: No Known Family HX Smoking Status: Never Smoked Hx Alcohol Use: Yes (hx of) Hx Substance Use: No Hx Substance Use Treatment: No Allergies/Home Meds Allergies/Adverse Reactions: Allergies No Known Allergies Allergy (Verified 01/04/17 12:59) Home Medications: Home Meds Medication Instructions Recorded Confirmed No Known Home Med 01/04/17 01/04/17 Review of Systems - Physician Review All systems were reviewed & negative as marked: Yes - Review of Systems Constitutional: Other (generalized weakness) Respiratory: absent: SOB Cardiovascular: absent: Chest Pain Gastrointestinal: Nausea, Vomiting, Hematochezia, Hematemesis Neurological: Dizziness Physical Exam Vital Signs Reviewed: Yes Vital Signs Temp Pulse Resp BP Pulse Ox 01/04/17 14:09 97.5 F L 01/04/17 13:04 97.6 F 106 H 20 105/68 99 Temperature: Afebrile Blood Pressure: Normal Pulse: Tachycardic Respiratory Rate: Normal Appearance: Positive for: Well-Appearing, Non-Toxic, Comfortable Pain Distress: None Mental Status: Positive for: Alert and Oriented X 3 Finger Stick Blood Glucose: 121 - Systems Exam Head: Present: Atraumatic, Normocephalic Pupils: Present: PERRL Extroacular Muscles: Present: EOMI Conjunctiva: Present: Icteric (sclera) Mouth: Present: Moist Mucous Membranes Neck: Present: Normal Range of Motion Respiratory/Chest: Present: Clear to Auscultation, Good Air Exchange. No: Respiratory Distress, Accessory Muscle Use Cardiovascular: Present: Murmurs (systolic), Tachycardic Abdomen: Present: Distention, Normal Bowel Sounds. No: Peritoneal Signs Rectal: No: Gross Blood Back: Present: Normal Inspection Upper Extremity: Present: Normal Inspection. No: Cyanosis, Edema Lower Extremity: Present: Edema (bilateral leg) Neurological: Present: GCS=15, CN II-XII Intact, Speech Normal Skin: Present: Warm, Dry, Other (jaundice). No: Rashes Psychiatric: Present: Alert, Oriented x 3, Normal Insight, Normal Concentration. No: Depressed Mood, Suicidal Ideation Medical Decision Making ED Course and Treatment: 01/04/17 13:15 Impression: A 51 year old male with dizziness, hematochezia, hematemesis and leg swelling. Differential Diagnosis included but are not limited to: GI bleed vs. anemia vs. cirrhosis vs. dehydration vs. alcohol withdrawal vs. hepatic encephalopathy Plan: -- EKG -- chest xray -- labs -- Urinalysis -- Protonix, IV fluids, Zofran, Zosyn -- Reassess and disposition Prior Visits: Notes and results from previous visits were reviewed. Patient last reported to the emergency department on 11/21/16 for evaluation of paranoid ideations and possible hallucinations. Patient admitted to ICU admission. Patient was discharged on 11/25/16. Progress Notes: Patient was recently in emergency department and admitted for hepatic encephalopathy and GI bleed. Will reevaluate patient after treatment. On initial exam he is tachycardic and hypotensive. He appears pale and jaundiced. He is not describing any pain or discomfort. On rectal exam, no melena or gross blood. Type and cross for packed red blood cells ordered and iv fluid bolus ordered. Zofran and protonix ordered. After 2 hours in ED there is no vomiting or hematemesis noted. Repeat blood pressure SBP 120s and heart rate 90s. He states he feels better and nausea resolved. He remains awake, alert, oriented with no slurred speech, although ammonia level is elevated, suspect component of hepatic encephalopathy. Sisters dropped patient off in ED state they recently returned from a trip to [facility] this morning and that he had been complaining of weakness for several days. They believe that he has not had a drink for several days. On exam, he does not appear tremulous although risk for withdrawal noted. Currently no gross blood noted, although given history of cirrhosis and prior GI bleed, will admit to ICU as patient is found to be significantly anemic, compared to his most recent available Hgb. Patient has no PMD and has not followed-up with prior discharge instructions. WBC elevated, however afebrile with unremarkable chest xray and urinalysis. Lactate elevated, will call code sepsis as associated leukocytosis and tachycardia, initiate iv antibiotics, suspect lactate related to GI bleed. Patient's case discussed with Dr. Andrade Frye, director council on aging and hospitalist, admission accepted to ICU. chest xray: Creator : Lowell Campbell MD 01/04/2017 14:18 IMPRESSION: No active disease. Code sepsis called. 01/04/17 14:58 - Critical Care Critical Care Minutes: 45 minutes - Lab Interpretations Lab Results: 01/04/17 13:53 01/04/17 13:56 Lab Results 01/04/17 13:56: Alcohol, Quantitative < 10 01/04/17 13:56: Chloride 108 H, Sodium 136, Potassium 5.3 H, Carbon Dioxide 19 L , Anion Gap 14, BUN 56 H, Creatinine 1.1, Est GFR ( Amer) > 60, Est GFR ( Non-Af Amer) > 60, Random Glucose 119 H, Calcium 7.7 L, Magnesium 2.1, Total Bilirubin 1.3, AST 38, ALT 34, Alkaline Phosphatase 116, Lactate Dehydrogenase 561, Total Creatine Kinase 38, Troponin I 0.04 D, Total Protein 5.4 L, Albumin 2.3 L, Globulin 3.1, Albumin/Globulin Ratio 0.7 L, Amylase 96, Lipase 399 H 01/04/17 13:53: Ammonia 83 H 01/04/17 13:53: Urine Color Yellow, Urine Appearance Clear, Urine pH 6.0, Ur Specific [place] 1.020, Urine Protein Negative, Urine Glucose (UA) Negative, Urine Ketones Negative, Urine Blood Negative, Urine Nitrate Negative, Urine Bilirubin Negative, Urine Urobilinogen 0.2, Ur Leukocyte Esterase Negative 01/04/17 13:53: pO2 75 H, VBG pH 7.33, VBG pCO2 37.0 L, VBG HCO3 19.5 L, VBG Total CO2 20.6 L, VBG O2 Sat (Calc) 98.4 H, VBG Base Excess 5.9 H, Chloride 113.0 H, Glucose 124 H, Lactate 5.5 H*, FiO2 21 01/04/17 13:53: PT 17.4 H, INR 1.61 H, APTT 29.0 01/04/17 13:53: WBC 14.4 H D, RBC 2.13 L, Hgb 4.8 L* D, Hct 15.6 L*, MCV 73.2 L , MCH 22.5 L, MCHC 30.8 L, RDW 27.2 H, Plt Count 274, MPV 10.0, Gran % 79.9 H, Lymph % (Auto) 11.6 L, [place] % (Auto) 8.1 H, Eos % (Auto) 0.1 L, Baso % (Auto) 0.3, Gran # 11.48 H, Lymph # 1.7, [place] # 1.2 H, Eos # 0.0, Baso # 0.04 I have reviewed the lab results: Yes - RAD Interpretation Radiology Orders: 01/04/17 13:21 CHEST PORTABLE [RAD] Stat Aluminum Molder: Radiologist - EKG Interpretation EKG Interpretation (Text): 01/04/17 15:08 EKG at 13:17 sinus tachycardia rate of [address] elevations Interpreted by ED Physician: Yes Type: 12 lead EKG - Medication Orders Current Medication Orders: Pantoprazole Sodium (Protonix 40mg Ivpb) 40 mg in 100 mls @ 20 mls/hr IVPB .Q5H CESAR Discontinued Medications Sodium Chloride (Sodium Chloride 0.9%) 1,000 mls @ 1,000 mls/hr IV .Q1H STA Stop: 01/04/17 14:21 Last Admin: 01/04/17 13:49 Dose: 1,000 mls/hr Piperacillin Sod/Tazobactam Sod (Zosyn 3.375 In Ns 100ml) 100 mls @ 200 mls/hr IVPB STAT STA PRN Reason: Protocol Stop: 01/04/17 15:06 Sodium Chloride 1,380 ml/ IV (SUPPLIES) 1,380 mls @ 4,762.74 mls/hr IV ONCE ONE PRN Reason: 60 ML/KG/HR Stop: 01/04/17 14:39 Ondansetron HCl (Zofran Inj) 4 mg IVP ONCE ONE Stop: 01/04/17 13:23 Last Admin: 01/04/17 13:49 Dose: 4 mg Pantoprazole Sodium (Protonix Inj) 40 mg IVP ONCE STA Stop: 01/04/17 13:23 Last Admin: 01/04/17 13:49 Dose: 40 mg - Scribe Statement The provider has reviewed the documentation as recorded by the Chuy Menendez Provider Scribe Attestation: All medical record entries made by the Chuy were at my direction and personally dictated by me. I have reviewed the chart and agree that the record accurately reflects my personal performance of the history, physical exam, medical decision making, and the department course for this patient. I have also personally directed, reviewed, and agree with the discharge instructions and disposition. Disposition/Present on Arrival - Present on Arrival Any Indicators Present on Arrival: No History of DVT/PE: No History of Uncontrolled Diabetes: No Urinary Catheter: No History of Decub. Ulcer: No History Surgical Site Infection Following: None - Disposition Have Diagnosis and Disposition been Completed?: Yes Diagnosis: Anemia, Gastrointestinal bleeding, Cirrhosis, Hepatic encephalopathy, Hematemesis, Leukocytosis Disposition Time: 14:20 Patient Plan: Admission, ICU Patient Problems: Current Active Problems Problem Status Onset Anemia Acute Cirrhosis Acute Gastrointestinal bleeding Acute Hematemesis Acute Hepatic encephalopathy Acute Condition: CRITICAL
[2017-01-04 13:54] LABS: ADD MANUAL DIFF? NO
[2017-01-04 14:01] LABS: VENOUS BLOOD PH 7.33 (7.32-7.43)
[2017-01-04 14:02] LABS: VENOUS BLOOD GAS BASE EXCESS 5.9 mmol/L (0.0-2.0)
[2017-01-04 14:08] LABS: ALB/GLOB RATIO 0.7 (1.1-1.8); ALKALINE PHOSPHATASE 116 U/L (38-133); ALT/SGPT 34 U/L (7-56); AMYLASE 96 U/L (35-125); AST/SGOT 38 U/L (15-59); BILIRUBIN,TOTAL 1.3 mg/dL (0.2-1.3); BLOOD UREA NITROGEN 56 mg/dL (7-21); CALCIUM 7.7 mg/dL (8.4-10.5); CARBON DIOXIDE 19 mmol/L (21-33); CHLORIDE 108 mmol/L (98-107); GFR AFRICAN-AMERICAN > 60; GLUCOSE,RANDOM 119 mg/dL (70-110); LIPASE 399 U/L (23-300); MAGNESIUM 2.1 mg/dL (1.7-2.2); POTASSIUM 5.3 mmol/L (3.6-5.0); SODIUM 136 mmol/L (132-148); TOTAL PROTEIN 5.4 g/dL (5.8-8.3)
[2017-01-04 14:12] LABS: URINE BILIRUBIN NEGATIVE (NEGATIVE); URINE BLOOD NEGATIVE (NEGATIVE); URINE GLUCOSE (UA) NEGATIVE (NEGATIVE); URINE KETONE NEGATIVE (NEGATIVE); URINE LEUKOCYTE ESTERASE NEGATIVE Leu/uL (NEGATIVE); URINE PROTEIN NEGATIVE mg/dL (<30 mg/dL); URINE UROBILINOGEN 0.2 E.U./dL (<1 E.U./dL)
[2017-01-04 14:15] LABS: BASO # 0.04 K/mm3 (0.0-2.0); BASO % 0.3 % (0.0-3.0); EOS % 0.1 % (1.5-5.0); GRAN # 11.48 (1.4-6.5); GRAN % 79.9 % (50.0-68.0); LYMPH # 1.7 (1.2-3.4); LYMPH % 11.6 % (22.0-35.0); MEAN CELL VOLUME 73.2 fL (80.0-105.0); MEAN CORPUSCULAR HEMOGLOBIN 22.5 pg (25.0-35.0); MEAN CORPUSCULAR HGB CONC 30.8 g/dl (31.0-37.0); MONO # 1.2 (0.1-0.6); MONO % 8.1 % (1.0-6.0); PLATELET COUNT 274 10^3/uL (120.0-450.0); RED CELL DISTRIBUTION WIDTH 27.2 % (11.5-14.5); WHITE BLOOD COUNT 14.4 10^3/ul (4.5-11.0)
[2017-01-04 14:16] LABS: INR 1.61 (0.93-1.08); URINE APPEARANCE CLEAR (CLEAR); URINE COLOR YELLOW (YELLOW)
--- NOTE | 2017-01-04 14:17 | RAD ---
HISTORY: weakness COMPARISON: 11/21/2016 FINDINGS: LUNGS: No active pulmonary disease. PLEURA: No significant pleural effusion identified, no pneumothorax apparent. CARDIOVASCULAR: Normal. OSSEOUS STRUCTURES: No significant abnormalities. VISUALIZED UPPER ABDOMEN: Normal. OTHER FINDINGS: None. IMPRESSION: No active disease.
[2017-01-04 14:18] LABS: HEMATOCRIT 15.6 % (42.0-52.0)
[2017-01-04 14:19] LABS: TROPONIN I 0.04 ng/mL
[2017-01-04] MEDS ORDERED: Piperacillin/Tazobact 3.375 gm 100 ML IVPB STA (14:37)
[2017-01-04] MEDS: Pantoprazole 40mg/100ml IVPB 40 MG/100 ML BAG IVPB SCH ×2 (15:02→21:56)
--- NOTE | 2017-01-04 15:28 | CP.PCM.HP ---
<Tim Davidson - Last Filed: 01/04/17 15:55> History of Present Illness - History of Present Illness History of Present Illness: H&P. Dr. Scales Patient history obtained from chart review as well as from the patient, however , complicated by patient confabulation, denial of disease severity and mild confusion. 51yo M with PMHx of GI bleed, Gastric Ulcers, ?Esophageal varicies?, Cirrhosis, Hepatitis C, ETOH Abuse here for evaluation of dizziness, confusion, fatigue. Patient reports generalized weakness started this morning. States that he had similar episodes in the past when he had to come to the [facility] for evaluation however, does not remember how long ago it was. Reports 4-5 episodes of bloody emesis, unable to describe the characteristics of vomitus further. Denies any bloody bowel movements. Denies any abdominal pain. Admits to drinking 9-10 beers yesterday evening, reports last use at 5PM yesterday. Denies any shortness of breath, chest pain. No fever/chills. Also reports tripping and falling last night onto his hip, denies any current pain. C/o bilateral lower extremity swelling which has worsened after fall last night. Denies focal deficits. no headache. no visual disturbance. PMD: [place] PMHx: GI bleed, Gastric Ulcers, questionable esophageal varicies upon chart review, Cirrhosis, Hep C, ETOH abuse PSHx: EGD Social Hx: ETOH use, Denies tobacco use, denies drug use. Lives in [place] by himself, sister nearby Family Hx: Bipolar disorder NKDA Present on Admission - Present on Admission Any Indicators Present on Admission: No Review of Systems - Review of Systems Systems not reviewed;Unavailable: Other (confabulation, mild confusion) All systems: reviewed and no additional remarkable complaints except - Constitutional Constitutional: Fatigue, Weakness. absent: Chills, Fever - EENT Eyes: absent: Change in Vision Ears: absent: Decreased Hearing - Cardiovascular Cardiovascular: absent: Chest Pain, Dyspnea - Respiratory Respiratory: absent: Cough, Dyspnea - Gastrointestinal Gastrointestinal: Hematemesis, Nausea, Vomiting. absent: Abdominal Pain, Diarrhea, Hematochezia, Melena - Genitourinary Genitourinary: absent: Change in Urinary Stream, Dysuria - Musculoskeletal Musculoskeletal: absent: Back Pain - Neurological Neurological: Confusion, Dizziness. absent: Focal Weakness - Psychiatric Psychiatric: Confusion Past Patient History - Infectious Disease Hx of Infectious Diseases: None - Tetanus Immunizations Tetanus Immunization: Unknown - Past Social History Smoking Status: Never Smoked - CARDIAC Hx Cardiac Disorders: No - PULMONARY Hx Respiratory Disorders: Yes Other/Comment: Pt. had some type of lung infection 10 years ago - NEUROLOGICAL Hx Neurological Disorder: No - HEENT Hx HEENT Problems: No - RENAL Hx Chronic Kidney Disease: No - ENDOCRINE/METABOLIC Hx Endocrine Disorders: No - HEMATOLOGICAL/ONCOLOGICAL Hx Anemia: Yes Hx Blood Transfusions: Yes (november 2016) Hx Blood Transfusion Reaction: No Hx Cirrhosis: Yes Hx Hepatitis C: Yes - INTEGUMENTARY Hx Dermatological Problems: No - MUSCULOSKELETAL/RHEUMATOLOGICAL Hx Musculoskeletal Disorders: Yes Hx Falls: No Hx Fractures: Yes (old left shoulder and nose fracture) - GASTROINTESTINAL Hx Gastrointestinal Disorders: Yes Hx Vomiting: Yes Other/Comment: issue with liver. - GENITOURINARY/GYNECOLOGICAL Hx Genitourinary Disorders: No - PSYCHIATRIC Hx Psychophysiologic Disorder: No Hx Substance Use: No - SURGICAL HISTORY Other/Comment: nose surgery - ANESTHESIA Hx Anesthesia Reactions: No Hx Malignant Hyperthermia: No Meds Allergies/Adverse Reactions: Allergies Allergy/AdvReac Type Severity Reaction Status Date / Time No Known Allergies Allergy Verified 01/04/17 12:59 Physical Exam - Constitutional Appears: Unkempt, Confused (mild confusion. ), Chronically Ill Additional comments: Confabulation. Forgetfullness - Head Exam Head Exam: ATRAUMATIC, NORMAL INSPECTION, NORMOCEPHALIC - Eye Exam Eye Exam: EOMI, Scleral icterus (mild icterus) - ENT Exam ENT Exam: Mucous Membranes Dry - Neck Exam Neck exam: Positive for: Full Rom - Respiratory Exam Respiratory Exam: Clear to Auscultation Bilateral. absent: Rales, Rhonchi, Wheezes - Cardiovascular Exam Cardiovascular Exam: Tachycardia, +S1, +S2. absent: JVD - GI/Abdominal Exam GI & Abdominal Exam: Soft. absent: Distended, Firm, Guarding, Tenderness - Extremities Exam Additional comments: Bilateral lower extremity 3+ pretibial pitting edema - Neurological Exam Neurological exam: Alert, Oriented x3 - Skin Additional comments: Pale, diaphoretic. Results - Vital Signs Recent Vital Signs: Last Vital Signs Temp 97.5 F L 01/04/17 14:09 Pulse 106 H 01/04/17 13:04 Resp 20 01/04/17 13:04 BP 105/68 01/04/17 13:04 Pulse Ox 99 01/04/17 13:04 - Labs Result Diagrams: 01/04/17 13:53 01/04/17 13:56 Assessment & Plan - Assessment and Plan (Free Text) Assessment: 51yo M with PMHx of GI blee, Gastric ulcers, ?esophageal varicies?, cirrhosis, Hepatitis C, ETOH abuse here for evaluation of Dizziness, generalized Fatigue, ETOH abuse. Possible current GI bleeding. Attempt to contact patient's family: Patient's Sister, Yaa was called, however, phone was not answered. 1. Possible upper GI Bleed Patient is a poor historian, with some confabulation and mild confusion Hb 4.8 on admission Repeat H/H STAT will transfuse 2U PRBCs GI consult, Dr. Galaviz, appreciate recs Protonix drip Octreotide drip Upon chart review: No reports of esophageal varicies on EGD from previous admission Zofran Aspiration precautions elevate head of bed Strict I&Os NPO except meds 2. r/o Sepsis afebrile leukocytosis 14.4 lactate of 5.5 mild tachycardia in the setting of severe anemia Will start abx for now: Cirrhosis with possible GI bleed. f/u Blood Cx f/u Urine Cx One dose of Zosyn in ED Rocephin 1g q24h 3. Probable early Hepatic Encephalopathy mild confusion, confabulation and poor insight f/u Ammonia in the AM Lactulose 30mg PO once 4. ETOH abuse CIWA protocol Ativan 1mg IV q2h prn withdrawal Ativan 2mg IV q6h jessica seizure precautions 5. Lower Extremity Swelling consider secondary to advanced liver disease f/u lower extremity doppler to r/o DVT 6. PPx On Protonix drip awaiting doppler study to r/o DVT Discussed case with Dr. Loyda Davidson PGY1 <Vanessa Scales - Last Filed: 01/04/17 17:45> Results - Vital Signs Recent Vital Signs: Last Vital Signs Temp 97.8 F 01/04/17 17:21 Pulse 98 H 01/04/17 17:21 Resp 18 01/04/17 17:21 BP 124/55 L 01/04/17 17:21 Pulse Ox 100 01/04/17 16:22 - Labs Result Diagrams: 01/04/17 13:53 01/04/17 13:56 Labs: Laboratory Results - last 24 hr 01/04/17 16:10 Urine Opiates Screen Negative Urine Methadone Screen Negative Ur Barbiturates Screen Negative Ur Phencyclidine Scrn Negative Ur Amphetamines Screen Negative U Benzodiazepines Scrn Negative U Oth Cocaine Metabols Negative U Cannabinoids Screen Positive H Attending/Attestation - Attestation I have personally seen and examined this patient.: Yes I have fully participated in the care of the patient.: Yes I have reviewed all pertinent clinical information: Yes Notes (Text): 01/04/17 17:36 attending note; Patient seen and examined with the resident in ER. Patient is alert, awake and oriented to place and year. But mild confusion due to hepatic encephalopathy. This is a 51 year old male with history of GI bleed, gastric ulcers, esophageal varices, hepatic encephalopathy, cirrhosis, Hep C,noncompliance with follow-up and alcohol abuse who was brought in for generalized weakness. Patient was found to have hemoglobin of 4.8 in the ER. Patient complained of hematemesis and dark stools. Patient continues to drink alcohol. Last drink was yesterday night. The patient had recent admission to [facility] on 12/01 for the same problems. he was given blood transfusion. EGD was done. Patient was advised to stop alcohol use. Patient was also advised to follow-up with [facility] clinic. currently patient will be admitted to ICU. Blood transfusion ordered. Started on Protonix drip. Started on octreotide drip since patient had esophageal varices.GI evaluation requested. Started on lactulose for mild hepatic encephalopathy. complete alcohol cessation is strongly advised. Lower extremity edema; secondary to advanced decompensated liver failure. Started on Lasix. Lower extremity Doppler ordered. Message left with patient's sister Yaa in detail. Prognosis is poor secondary to continuous alcohol abuse and noncompliance with follow-up. patient will be advised to follow-up with [facility] clinic upon discharge. Patient will be referred to [facility] hepatology/hepatitis C clinic. Currently patient is not a candidate for liver transplant due to continuous alcohol abuse.
--- NOTE | 2017-01-04 16:32 | CP.PCM.CON ---
History of Present Illness - History of Present Illness History of Present Illness: Manan Jackson D.O. PGY-1, Internal Medicine Resident, ICU Consultation Note CC: coffee ground emesis x3 since yesterday 51 year old male with a PMH of hepatitis C and chronic alcoholism who presents after recently having landed from a trip to [facility] for complaints of chunky bloody emesis and confusion. Family provided most of the history but patient able to corroborate. Patient a week ago flew to [facility] to visit family with his twin sister and he stated that he wasn't feeling well. Patient was having some issues ambulating due to a fall before the flight, was seen at [facility], told that it was just a bruise. Since patient wasn't feeling well he had stopped drinking per the sister around the beginning of their trip. Patient continued to feel worse and yesterday he had multiple episodes of chunky, red, coffee ground emesis. Sister states that he then also threw up the same dark red to black, coffee ground today before the flight and again in the car on the way here. This has happened before in the past and patient has been here before for this issue. Patient has been somewhat confused but able to carry conversation, denied any acute complaints other than residual hip pain. PMH: as above PSH: denies SH: denies smoking, ambiguous about the total amount that he drinks poss up to about 12 beers a day, denies drug use Meds: reviewed Allergies: NKA Review of Systems - Review of Systems Systems not reviewed;Unavailable: Altered Mental Status Past Patient History - Infectious Disease Hx of Infectious Diseases: None - Tetanus Immunizations Tetanus Immunization: Unknown - Past Social History Smoking Status: Never Smoked - CARDIAC Hx Cardiac Disorders: No - PULMONARY Hx Respiratory Disorders: Yes Other/Comment: Pt. had some type of lung infection 10 years ago - NEUROLOGICAL Hx Neurological Disorder: No - HEENT Hx HEENT Problems: No - RENAL Hx Chronic Kidney Disease: No - ENDOCRINE/METABOLIC Hx Endocrine Disorders: No - HEMATOLOGICAL/ONCOLOGICAL Hx Anemia: Yes Hx Blood Transfusions: Yes (november 2016) Hx Blood Transfusion Reaction: No Hx Cirrhosis: Yes Hx Hepatitis C: Yes - INTEGUMENTARY Hx Dermatological Problems: No - MUSCULOSKELETAL/RHEUMATOLOGICAL Hx Musculoskeletal Disorders: Yes Hx Falls: No Hx Fractures: Yes (old left shoulder and nose fracture) - GASTROINTESTINAL Hx Gastrointestinal Disorders: Yes Hx Vomiting: Yes Other/Comment: issue with liver. - GENITOURINARY/GYNECOLOGICAL Hx Genitourinary Disorders: No - PSYCHIATRIC Hx Psychophysiologic Disorder: No Hx Substance Use: No - SURGICAL HISTORY Other/Comment: nose surgery - ANESTHESIA Hx Anesthesia Reactions: No Hx Malignant Hyperthermia: No Meds Allergies/Adverse Reactions: Allergies Allergy/AdvReac Type Severity Reaction Status Date / Time No Known Allergies Allergy Verified 01/04/17 12:59 - Medications Medications: Current Medications Pantoprazole Sodium (Protonix 40mg Ivpb) 40 mg in 100 mls @ 20 mls/hr IVPB .Q5H CESAR Last Admin: 01/04/17 15:02 Dose: 20 mls/hr Octreotide Acetate 1,250 mcg/ (Dextrose) 252.5 mls @ 5.05 mls/hr IV .Q24H CESAR; 25 MCG/HR PRN Reason: Protocol Ceftriaxone Sodium (Rocephin 1 Gram Ivpb) 1 gm in 100 mls @ 100 mls/hr IVPB DAILY CESAR PRN Reason: Protocol Lorazepam (Ativan) 1 mg IVP Q3H PRN PRN Reason: Symptoms of alcohol withdrawl Ondansetron HCl (Zofran Inj) 4 mg IVP Q6H PRN PRN Reason: Nausea/Vomiting Physical Exam - Constitutional Additional comments: well developed, well nourished [place] male in NAD, jaundiced, somewhat confused but verbal, sister at bedside - Head Exam Head Exam: ATRAUMATIC, NORMOCEPHALIC - Eye Exam Eye Exam: EOMI, PERRL. absent: Conjunctival injection - ENT Exam ENT Exam: Mucous Membranes Dry - Neck Exam Neck exam: Negative for: Lymphadenopathy, Tenderness - Respiratory Exam Respiratory Exam: Clear to Auscultation Bilateral. absent: Rales, Rhonchi, Wheezes - Cardiovascular Exam Cardiovascular Exam: Tachycardia, +S1, +S2. absent: Gallop, Rubs, Systolic Murmur - GI/Abdominal Exam GI & Abdominal Exam: Normal Bowel Sounds, Soft. absent: Distended, Guarding, Tenderness - Extremities Exam Extremities exam: Positive for: normal capillary refill. Negative for: calf tenderness, tenderness - Back Exam Back exam: absent: paraspinal tenderness - Neurological Exam Additional comments: awake, alert, oriented to self, time, place, but not situation, fine tremors of the hands on extension, mild asterixis, downgoing plantars, otherwise nonfocal - Skin Skin Exam: Dry, Warm Additional comments: jaundiced throughout Results - Vital Signs Recent Vital Signs: Last Vital Signs Temp 97.5 F L 01/04/17 15:30 Pulse 103 H 01/04/17 16:22 Resp 18 01/04/17 16:22 BP 121/63 01/04/17 16:22 Pulse Ox 100 01/04/17 16:22 - Labs Result Diagrams: 01/04/17 13:53 01/04/17 13:56 Assessment & Plan - Assessment and Plan (Free Text) Assessment: 51 year old male with a PMH of hepatitis C and chronic alcoholism who presents after recently having landed from a trip to [facility] for complaints of chunky bloody emesis and confusion. Plan: Neurological Confused, poss hepatic encephalopathy with increased ammonia starting lactulose , and alcohol withdrawal, ativan cesar and prn running, CIWA, asp pre, HOB >30, high fall risk Cardiovascular Hemodynamically stable, Hgb low will get 2U PRBCs, s/p CODE NS infusion + 1L, will add banana bag and then continue at NS @ 150 Pulmonary Protecting airway, maintaining sats >92%, monitoring Renal/ Fluids / Electrolytes Cont fluids as above, pre-renal, repeat CMP nichole AM GI NPO, poss GI bleed with coffee ground emesis, Hx Hep C, previous GI bleeds, GI consulted, on protonix and octreotide gtts Infectious disease Code sepsis, cont abx, afebrile, hx Hep C Hematology/Oncology Hgb low, getting 2U PRBCs, repeat CBC after transfusions at 2330 Prophylaxis PPI gtt/SCDs Patient was seen and examined with attending and case was discussed at length with attending physician. - Date & Time Date: 01/04/17 Time: 16:30
[2017-01-04] MEDS: Octreotide 1,250 MCG in Dextrose 5% In Water 250 ML IV SCH (16:48)
[2017-01-04] MEDS ORDERED: Multivitamin (MVI) 10 ML, Thiamine 100 MG, Folic Acid 1 MG in Sodium Chloride 0.9% 1,00... IV ONE (17:14)
[2017-01-04] MEDS ORDERED: Sodium Chloride 0.9% 1,000 ML IV SCH (17:15)
[2017-01-04 17:46] LABS: VENOUS BLOOD GAS BASE EXCESS -8.5 mmol/L (0.0-2.0); VENOUS BLOOD PH 7.37 (7.32-7.43)
--- NOTE | 2017-01-04 19:14 | CON ---
DATE: 01/04/2017 REQUESTING PHYSICIAN: Dr. Scales. CHIEF COMPLAINT: The patient presented with generalized weakness and dizziness. Complaining of leg swelling as well as of vomiting blood over the last week. HISTORY OF PRESENT ILLNESS: The patient is a 51-year-old male with a history of EtOH abuse, delirium tremens in the past, cirrhosis of the liver and splenomegaly. He also has a history of GI bleeds an d anemia that presented to the Emergency Room because he was feeling weak and dizzy that morning and he and family state that over the last week or so he has been having episodes of vomiting that have h ad been blood mixed in, but the last 2-3 days the vomiting consisted of large amounts of blood with d ark clots. The patient was noted to have a hemoglobin of 4.8 in the Emergency Room and slightly chanel diced. He had some mild tachycardia and an increased white count as well. It was also noted that hi s ammonia level was elevated. At present, there is no nauseousness or vomiting. No diarrhea, no abd ominal pain. No chest pain, no cough, no wheezing, no congestion. No complaints of shortness of cindy ath. PAST MEDICAL HISTORY: Also is as above plus the fact that approximately a week and a half ago he had a fall and was taken to a local hospital and they said that there was no bone fracture, but he had a bed bruise and now he is walking with a cane. ALLERGIES: The patient has no known allergies. MEDICATIONS: Can be evaluated as per the nurse's intake form. SOCIAL HISTORY: He has no history of smoking or drug abuse, but does have a long history of EtOH abu se. FAMILY HISTORY: Noncontributory. REVIEW OF SYSTEMS: CONSTITUTIONAL: All negative. HEENT: All negative. RESPIRATORY: All negative. CARDIOVASCULAR: All negative. GASTROINTESTINAL: The patient had nauseousness and vomiting of blood as well. GENITOURINARY: All negative. MUSCULOSKELETAL: He has pain in his hip from falling. NEUROPSYCHIATRIC: The patient does have the dizziness. ENDOCRINE: All negative. HEMATOLOGIC: All negative. IMMUNOLOGIC: All negative. INTEGRITY: All negative. PHYSICAL EXAMINATION: VITAL SIGNS: His temperature is 97.6, his pulse is 106, respirations are 20 and BP is 105/68. SKIN: Warm and dry. HEAD: Atraumatic, normocephalic. EYES: Reactive to light. EARS, NOSE AND THROAT: Seem to be within normal limits. NECK: Supple, no JVD, no thyroid enlargement, no lymph nodes. HEART: Has a regular rate and rhythm, normal S1, S2, but tachycardic. LUNGS: Reveal good breath sounds bilaterally. ABDOMEN: Soft. Decreased bowel sounds, no significant organomegaly noted. GENITALIA AND RECTAL: Deferred. MUSCULOSKELETAL: No joint deformities. EXTREMITIES: Reveal 1+ lower extremity edema. NEUROLOGIC: He seems to be grossly intact. LABORATORY DATA: His white count is 14.4, hemoglobin is 4.8 and his hematocrit is 15.6 with platelet s of 274,000. His sodium is 136, potassium 5.3, chloride 108, CO2 of 19 with a BUN of 56, creatinine of 1.1, and a glucose of 119. As far as his chest x-ray, reveals no infiltrates. IMPRESSION: This patient has acute gastrointestinal bleed with severe anemia. He has cirrhosis and splenomegaly. The patient seems to have jaundice and possible liver failure from some hepatitis C an d resulting increased ammonia level. The patient has metabolic acidosis, mild hyperkalemia and there may be a component of sepsis with the lactate being 5.5. The patient may be in mild DTs and we will evaluate him closely in the ICU for alcohol withdrawal. PLAN: The patient will be monitored closely. He has O2 via nasal cannula. We will give him Ativan IV and lactulose as well as Lasix for appropriate diuresis. The patient is on Rocephin and we will c ontinue with IV fluids of normal saline. We will follow closely and treat aggressively and at this t stefany he is getting packed red blood cells and we will follow his hemoglobin and transfuse as needed. The patient will get a GI consult and we will continue to treat aggressively along with the other con sultants and the primary care doctor. Andrade Frye MD cc: [id number] TT: 01/04/2017 19:13:33 Confirmation # [id number] Dictation # [id number]
--- NOTE | 2017-01-04 20:26 | PCM.SEPTIC ---
Sepsis Progress Note - Reassessment Type Date of Evaluation: 01/04/17 Time of Evaluation: 20:30 Reassessment Type: Non-invasive reassessment - Non Invasive Reassessment Were the most recent vital sign reviewed: Yes Vital Sign (Latest): Temp Pulse Resp BP Pulse Ox 98.4 F 100 H 18 101/46 L 100 01/04/17 19:08 01/04/17 19:08 01/04/17 19:08 01/04/17 20:16 01/04/17 18:20 Cardiovascular: Yes: Tachycardia. No: Murmur Respiratory: Yes: Normal Breath Sounds. No: Crackles, Wheezing, Respiratory Distress Capillary Refill: Normal (Less than 2 sec) Skin: Normal Color, Warm, Dry Was a bedside cardiovascular ultrasound performed within 6 hours after the presentation of septic shock: No
[2017-01-05] MEDS ORDERED: Multivitamin (MVI) 10 ML, Thiamine 100 MG, Folic Acid 1 MG in Sodium Chloride 0.9% 1,00... IV ONE (00:30)
--- NOTE | 2017-01-05 01:31 | CARD ---
APPROVED REPORT EKG Measurement Heart [id number] [id number] <Conclusion> Sinus tachycardia Otherwise normal ECG
[2017-01-05 02:23] LABS: MEAN CELL VOLUME 78.5 fL (80.0-105.0); MEAN CORPUSCULAR HEMOGLOBIN 25.6 pg (25.0-35.0); MEAN CORPUSCULAR HGB CONC 32.6 g/dl (31.0-37.0); MEAN PLATELET VOLUME 9.6 fl (7.0-11.0); PLATELET COUNT 181 10^3/uL (120.0-450.0); RED CELL DISTRIBUTION WIDTH 24.1 % (11.5-14.5); WHITE BLOOD COUNT 9.7 10^3/ul (4.5-11.0)
[2017-01-05] MEDS: Pantoprazole 40mg/100ml IVPB 40 MG/100 ML BAG IVPB SCH ×4 (02:32→19:52)
[2017-01-05 02:35] LABS: ALB/GLOB RATIO 0.8 (1.1-1.8); ALKALINE PHOSPHATASE 108 U/L (38-133); ALT/SGPT 43 U/L (7-56); AST/SGOT 60 U/L (15-59); BILIRUBIN,TOTAL 2.5 mg/dL (0.2-1.3); BLOOD UREA NITROGEN 48 mg/dL (7-21); CALCIUM 7.2 mg/dL (8.4-10.5); CARBON DIOXIDE 19 mmol/L (21-33); CHLORIDE 115 mmol/L (98-107); GFR AFRICAN-AMERICAN > 60; GLUCOSE,RANDOM 106 mg/dL (70-110); MAGNESIUM 2.1 mg/dL (1.7-2.2); PHOSPHOROUS 5.1 mg/dL (2.5-4.5); POTASSIUM 4.3 mmol/L (3.6-5.0); SODIUM 140 mmol/L (132-148); TOTAL PROTEIN 5.3 g/dL (5.8-8.3)
[2017-01-05 02:41] LABS: ADD MANUAL DIFF? YES
[2017-01-05 05:12] LABS: BAND 3 % (0-2); EOSINOPHIL 2 % (0.0-3.0); NEUTROPHIL 65 % (50.0-70.0)
[2017-01-05 05:13] LABS: HYPOCHROMIA 2+; MICROCYTOSIS 3+
[2017-01-05 05:17] LABS: ANISOCYTOSIS 2+; TARGET CELLS SLIGHT
[2017-01-05 05:18] LABS: LARGE PLATELETS PRESENT; PLATELET ESTIMATE NORMAL (NORMAL)
[2017-01-05 05:20] LABS: TEAR DROP CELLS SLIGHT
[2017-01-05 05:21] LABS: POLYCHROMASIA 1+
[2017-01-05] MEDS: cefTRIAXone 1 gm 1 GM/100 ML BAG IVPB SCH (10:56)
[2017-01-05 13:13] LABS: INR 1.35 (0.93-1.08)
--- NOTE | 2017-01-05 13:17 | CP.PCM.CON ---
History of Present Illness - History of Present Illness History of Present Illness: History taken from chart reviews and discussion with the patient's nurse today. 51 year old male with PMH of chronic hepatitis C (has not been treated), chronic ethanol abuse, history of GI bleed in the past, history of delirium tremens, history of gastric ulcers, was brought in to [facility] because of multiple episodes of hematemesis as well as melena since a day prior to admission. Apparently the patient had been drinking about 9-10 servings of beer the day prior. The patient was also noted to be confabulating. There is no note of fever, no convulsions, no loss of consciousness, no bowel or bladder incontinence. Full review of systems is unobtainable because of the patient's confusion. In the ED, the patient was noted to have leukocytosis and Infectious Diseases consult is requested to further evaluate and manage. Review of Systems - Review of Systems Systems not reviewed;Unavailable: Altered Mental Status Past Patient History - Infectious Disease Hx of Infectious Diseases: None - Tetanus Immunizations Tetanus Immunization: Unknown - Past Social History Smoking Status: Never Smoked - CARDIAC Hx Cardiac Disorders: No - PULMONARY Hx Respiratory Disorders: Yes Other/Comment: Pt. had some type of lung infection 10 years ago - NEUROLOGICAL Hx Neurological Disorder: No - HEENT Hx HEENT Problems: No - RENAL Hx Chronic Kidney Disease: No - ENDOCRINE/METABOLIC Hx Endocrine Disorders: No - HEMATOLOGICAL/ONCOLOGICAL Hx Anemia: Yes Hx Blood Transfusions: Yes (november 2016) Hx Blood Transfusion Reaction: No Hx Cirrhosis: Yes Hx Hepatitis C: Yes - INTEGUMENTARY Hx Dermatological Problems: No - MUSCULOSKELETAL/RHEUMATOLOGICAL Hx Musculoskeletal Disorders: Yes Hx Falls: No Hx Fractures: Yes (old left shoulder and nose fracture) - GASTROINTESTINAL Hx Gastrointestinal Disorders: Yes Hx Vomiting: Yes Other/Comment: issue with liver. - GENITOURINARY/GYNECOLOGICAL Hx Genitourinary Disorders: No - PSYCHIATRIC Hx Psychophysiologic Disorder: No Hx Substance Use: No - SURGICAL HISTORY Other/Comment: nose surgery - ANESTHESIA Hx Anesthesia Reactions: No Hx Malignant Hyperthermia: No Meds Allergies/Adverse Reactions: Allergies Allergy/AdvReac Type Severity Reaction Status Date / Time No Known Allergies Allergy Verified 01/04/17 12:59 - Medications Medications: Current Medications Furosemide (Lasix) 40 mg IVP DAILY CESAR Last Admin: 01/05/17 10:55 Dose: 40 mg Pantoprazole Sodium (Protonix 40mg Ivpb) 40 mg in 100 mls @ 20 mls/hr IVPB .Q5H CESAR Last Admin: 01/05/17 08:35 Dose: 20 mls/hr Octreotide Acetate 1,250 mcg/ (Dextrose) 252.5 mls @ 5.05 mls/hr IV .Q24H CESAR; 25 MCG/HR PRN Reason: Protocol Last Admin: 01/04/17 16:48 Dose: 25 mcg/hr, 5.05 mls/hr Ceftriaxone Sodium (Rocephin 1 Gram Ivpb) 1 gm in 100 mls @ 100 mls/hr IVPB DAILY CESAR PRN Reason: Protocol Last Admin: 01/05/17 10:56 Dose: 100 mls/hr Sodium Chloride (Sodium Chloride 0.9%) 1,000 mls @ 150 mls/hr IV .Q6H40M CESAR Lactulose (Enulose) 20 gm PO HS CESAR Last Admin: 01/05/17 00:43 Dose: Not Given Lorazepam (Ativan) 2 mg IVP Q6H CESAR PRN Reason: Protocol Last Admin: 01/05/17 10:55 Dose: 2 mg Lorazepam (Ativan) 1 mg IVP Q2 PRN; Protocol PRN Reason: Agitation Last Admin: 01/05/17 11:47 Dose: 1 mg Ondansetron HCl (Zofran Inj) 4 mg IVP Q6H PRN PRN Reason: Nausea/Vomiting Physical Exam - Constitutional Appears: Non-toxic, No Acute Distress - Head Exam Head Exam: NORMAL INSPECTION - ENT Exam ENT Exam: Mucous Membranes Moist - Neck Exam Neck exam: Negative for: Lymphadenopathy, Meningismus - Respiratory Exam Respiratory Exam: Decreased Breath Sounds - Cardiovascular Exam Cardiovascular Exam: +S1, +S2 - GI/Abdominal Exam GI & Abdominal Exam: Soft. absent: Tenderness Results - Vital Signs Recent Vital Signs: Last Vital Signs Temp 97.6 F 01/05/17 12:00 Pulse 95 H 01/05/17 12:15 Resp 21 01/05/17 12:15 BP 130/70 01/05/17 12:15 Pulse Ox 77 L 01/05/17 11:15 - Labs Result Diagrams: 01/05/17 02:10 01/05/17 02:10 Labs: Laboratory Results - last 24 hr 01/04/17 01/04/17 01/04/17 16:10 17:15 18:55 WBC RBC Hgb Hct MCV MCH MCHC RDW Plt Count MPV Neutrophils % (Manual) Band Neutrophils % Lymphocytes % (Manual) Monocytes % (Manual) Eosinophils % (Manual) Platelet Evaluation Large Platelets Polychromasia Hypochromasia Anisocytosis (manual) Microcytosis (manual) Target Cells Tear Drop Cells Acanthocytes (Spur) pO2 34 VBG pH 7.37 VBG pCO2 28.0 L VBG HCO3 16.2 L VBG Total CO2 17.1 L VBG O2 Sat (Calc) 72.8 H VBG Base Excess -8.5 L VBG Potassium 4.9 Sodium 139.0 Chloride 120.0 H Glucose 109 Lactate 4.9 H* FiO2 21.0 Potassium Carbon Dioxide Anion Gap BUN Creatinine Est GFR ( Amer) Est GFR (Non-Af Amer) Random Glucose Calcium Phosphorus Magnesium Total Bilirubin AST ALT Alkaline Phosphatase Ammonia Total Protein Albumin Globulin Albumin/Globulin Ratio Venous Blood Potassium 4.9 Stool Occult Blood Positive H Urine Opiates Screen Negative Urine Methadone Screen Negative Ur Barbiturates Screen Negative Ur Phencyclidine Scrn Negative Ur Amphetamines Screen Negative U Benzodiazepines Scrn Negative U Oth Cocaine Metabols Negative U Cannabinoids Screen Positive H 01/05/17 01/05/17 01/05/17 02:10 02:10 02:10 WBC 9.7 D RBC 2.42 L Hgb 6.2 L* D Hct 19.0 L* MCV 78.5 L MCH 25.6 MCHC 32.6 RDW 24.1 H Plt Count 181 MPV 9.6 Neutrophils % (Manual) 65 Band Neutrophils % 3 H Lymphocytes % (Manual) 19 L Monocytes % (Manual) 11 H Eosinophils % (Manual) 2 Platelet Evaluation Normal Large Platelets Present Polychromasia 1+ Hypochromasia 2+ Anisocytosis (manual) 2+ Microcytosis (manual) 3+ Target Cells Slight Tear Drop Cells Slight Acanthocytes (Spur) Slight pO2 VBG pH VBG pCO2 VBG HCO3 VBG Total CO2 VBG O2 Sat (Calc) VBG Base Excess VBG Potassium Sodium 140 Chloride 115 H Glucose Lactate FiO2 Potassium 4.3 Carbon Dioxide 19 L Anion Gap 10 BUN 48 H Creatinine 1.0 Est GFR ( Amer) > 60 Est GFR (Non-Af Amer) > 60 Random Glucose 106 Calcium 7.2 L Phosphorus 5.1 H Magnesium 2.1 Total Bilirubin 2.5 H AST 60 H ALT 43 Alkaline Phosphatase 108 Ammonia 40 H Total Protein 5.3 L Albumin 2.3 L Globulin 3.0 Albumin/Globulin Ratio 0.8 L Venous Blood Potassium Stool Occult Blood Urine Opiates Screen Urine Methadone Screen Ur Barbiturates Screen Ur Phencyclidine Scrn Ur Amphetamines Screen U Benzodiazepines Scrn U Oth Cocaine Metabols U Cannabinoids Screen Assessment & Plan - Assessment and Plan (Free Text) Plan: Assessment Systemic Inflammatory Response Syndrome (tachypnea, tachycardia, leuekocytosis) , consider secondary to acute GI bleeding R/O esophageal variceal bleeding chronic hepatitis C (has not been treated) chronic ethanol abuse history of GI bleed in the past history of delirium tremens history of gastric ulcers Plan Agree to continue Rocephin for prophylaxis for GI bleeding until we can rule out esophageal varices - awaiting GI plan for EGD Will monitor clinically
--- NOTE | 2017-01-05 13:39 | CON ---
DATE: 01/05/2017 REQUESTING PHYSICIAN: Dr. Valentina Santizo. REASON FOR CONSULTATION: I have been asked to see this 51-year-old male with known history of cirrho sis of the liver secondary to hepatitis C, alcohol abuse, gastric ulcer, who was brought to the [facility] by family after flying back from [facility] with dizziness, confusion and fatigue. The patient appa rently had 2-3 episodes of vomiting coffee-ground material. The patient was found to be profoundly a nemic with a hemoglobin of 6. The patient apparently has been drinking 1-2 six-packs of beer on a re gular basis. The patient was hospitalized in 11/2016 for GI bleeding and anemia and had an endoscopy at this time which revealed gastric ulcers, but no varices. Again, he has a history of hepatitis C and cirrhosis of the liver. PAST MEDICAL HISTORY: As above. He has a history of hepatitis C, cirrhosis of liver, alcohol use, g astric ulcers, anemia, GI bleeding. SOCIAL HISTORY: He is an alcohol user, history of hepatitis C. Denies cigarette smoking. FAMILY HISTORY: Noncontributory. REVIEW OF SYSTEMS: A 14-point review of systems is pertinent for weakness, dizziness and hematemesis of coffee-grounds. PHYSICAL EXAMINATION: GENERAL: Middle-aged male lying in bed in no acute distress. VITAL SIGNS: Reveal temperature of 97.6, blood pressure 142/78, heart rate 101. HEENT: Reveal sclerae to be white, conjunctivae pale. NECK: Supple. CHEST: Reveals lungs to be clear. HEART: Reveals a regular rate and rhythm. ABDOMEN: Protuberant, soft, nontender. He appears to have some ascites. EXTREMITIES: Show no edema. LABORATORY DATA: Reveal hemoglobin of 6.2 this morning; white blood cell count of 9.7; platelet coun t of 181,000. Chemistries reveal BUN 40, creatinine 1, AST 60, ALT 43, alkaline phosphatase 108. Se rum ammonia is 40. IMPRESSION: A 51-year-old male with severe anemia, coffee-ground emesis, history of cirrhosis of the liver, hepatitis C, alcohol use. RECOMMENDATIONS: 1. Transfuse packed red blood cells to hematocrit of 30%. 2. Continue PPI drip. 3. Continue lactulose. Note, the patient had an upper endoscopy within the last 4-6 weeks. Jf Galaviz MD cc: [id number] TT: 01/05/2017 13:38:19 Confirmation # [id number] Dictation # [id number]
[2017-01-05 13:56] LABS: ADD MANUAL DIFF? NO
[2017-01-05] MEDS: Dexmedetomidine HCl 4mcg/ml 400 MCG/100 ML BOTTLE IV PRN ×2 (14:00→22:57)
[2017-01-05 14:02] LABS: BASO # 0.09 K/mm3 (0.0-2.0); EOS # 0.4 (0.0-0.7); EOS % 4.4 % (1.5-5.0); GRAN # 5.37 (1.4-6.5); GRAN % 60.4 % (50.0-68.0); HEMATOCRIT 24.8 % (42.0-52.0); LYMPH # 1.6 (1.2-3.4); LYMPH % 18.4 % (22.0-35.0); MEAN CELL VOLUME 80.8 fL (80.0-105.0); MEAN CORPUSCULAR HEMOGLOBIN 26.4 pg (25.0-35.0); MEAN CORPUSCULAR HGB CONC 32.7 g/dl (31.0-37.0); MEAN PLATELET VOLUME 9.3 fl (7.0-11.0); MONO # 1.4 (0.1-0.6); MONO % 15.8 % (1.0-6.0); PLATELET COUNT 161 10^3/uL (120.0-450.0); RED CELL DISTRIBUTION WIDTH 21.3 % (11.5-14.5); WHITE BLOOD COUNT 8.9 10^3/ul (4.5-11.0)
--- NOTE | 2017-01-05 14:15 | CP.CCUPN ---
<Manan Jackson - Last Filed: 01/05/17 14:10> CCU Subjective - Physician Review Events Since Last Encounter (Free Text): 01/05/17 14:15 Manan Jackson D.O. PGY-1, Internal Medicine Resident, ICU Progress Note 51 year old male with a PMH of hepatitis C and chronic alcoholism who presents after recently having landed from a trip to [facility] for complaints of chunky bloody emesis and confusion, found to have severe anemia. Patient was seen and examined at bedside. Patient is somewhat confused at this time, answers questions inappropriately. After a discussion with the family, they reveal that even with them he is very ambiguous about how much he drinks, often will however have 6 very large beer cans in a sitting and there's a possibility he does that many times a day. Otherwise patient denied any new complaints. No overnight events per RN. CCU Objective - Vital Signs / Intake & Output Vital Signs (Last 4 hours): Vital Signs Temp Pulse Resp BP Pulse Ox 01/05/17 12:15 95 H 21 130/70 01/05/17 12:00 97.6 F 97 H 18 130/79 01/05/17 11:45 96 H 19 136/78 01/05/17 11:30 134/96 H 01/05/17 11:29 104 H 26 H 01/05/17 11:20 97.6 F 101 H 23 142/78 01/05/17 11:15 100 H 24 142/78 77 L 01/05/17 11:00 96 H 16 135/79 77 L 01/05/17 10:55 124/64 01/05/17 10:45 97 H 13 124/64 80 L 01/05/17 10:15 101 H 74 H 119/69 99 Intake and Output (Last 8hrs): Intake & Output 01/04/17 01/05/17 01/05/17 22:59 06:59 14:59 Intake Total 1428 375 690 Balance 1428 375 690 Weight 79.379 kg Intake: IV 1130 Left Antecubital 1130 Blood Product 298 325 650 Red Blood Cells Cpd As1 0 325 Lr Unit [id number] Red Blood Cells Cpd As1 0 325 Lr Unit [id number] Red Blood Cells Cpd As1 325 Lr Unit [id number] Red Blood Cells Cpd As1 0 Lr Unit [id number] Other 50 40 Red Blood Cells Cpd As1 20 Lr Unit [id number] Red Blood Cells Cpd As1 50 Lr Unit [id number] Red Blood Cells Cpd As1 20 Lr Unit [id number] Other: Voiding Method Incontinent # Bowel Movements 1 - Physical Exam Head: Positive for: Atraumatic, Normocephalic Pupils: Positive for: PERRL Extroacular Muscles: Positive for: EOMI Conjunctiva: Positive for: Icteric Mouth: Positive for: Moist Mucous Membranes Pharnyx: Positive for: Normal. Negative for: ERYTHEMA, EXUDATE Nose (External): Positive for: Atraumatic Neck: Positive for: Normal Range of Motion Respiratory/Chest: Positive for: Clear to Auscultation, Good Air Exchange. Negative for: Respiratory Distress, Accessory Muscle Use Cardiovascular: Positive for: Regular Rate and Rhythm. Negative for: Rub, Gallop Abdomen: Positive for: Distention (mild), Normal Bowel Sounds. Negative for: Tenderness, Peritoneal Signs Back: Negative for: Midline Tenderness, Paraspinal Tenderness Upper Extremity: Positive for: Normal Inspection. Negative for: Cyanosis, Edema Neurological: Positive for: Other (awake, alert, oriented x3 but not situation, confabulation, no focal motor deficits, follows simple commands) Skin: Positive for: Warm, Dry, Other (jaundice). Negative for: Rashes Psychiatric: Negative for: Depressed Mood, Suicidal Ideation - Medications Active Medications: Active Medications Generic Name Dose Route Start Last Admin Trade Name Freq PRN Reason Stop Dose Admin Pantoprazole Sodium 40 mg in 100 mls @ 20 mls/hr 01/04/17 14:45 01/05/17 14: 08 Protonix 40mg Ivpb IVPB 20 mls/hr .Q5H JESSICA Administration Octreotide Acetate 1,250 mcg/ 252.5 mls @ 5.05 mls/hr 01/04/17 15:45 16:48 Dextrose IV 25 mcg/hr .Q24H JESSICA 5.05 mls/hr Protocol Administration 25 MCG/HR Ceftriaxone Sodium 1 gm in 100 mls @ 100 mls/hr 01/05/17 10:00 01/05/17 10:56 Rocephin 1 Gram Ivpb IVPB 100 mls/hr DAILY JESSICA Administration Protocol Sodium Chloride 1,000 mls @ 150 mls/hr 01/04/17 20:15 Sodium Chloride 0.9% IV .Q6H40M JESSICA Dexmedetomidine HCl 400 mcg in 100 mls @ 3.969 mls/hr 01/05/17 13:47 14:00 Precedex 4 Mcg/Ml (100 Ml) IV 0.2 mcg/kg/hr .Q24H PRN 3.969 mls/hr Agitation Administration Protocol 0.2 MCG/KG/HR Lactulose 20 gm 01/04/17 22:00 01/05/17 00:43 Enulose PO Not Given HS JESSICA Lorazepam 2 mg 01/04/17 16:45 01/05/17 10:55 Ativan IVP 2 mg Q6H JESSICA Administration Protocol Lorazepam 1 mg 01/04/17 16:35 01/05/17 11:47 Ativan IVP 1 mg Q2 PRN Administration Agitation Protocol Ondansetron HCl 4 mg 01/04/17 15:28 Zofran Inj IVP Q6H PRN Nausea/Vomiting - Patient Studies Lab Studies: Lab Studies 01/05/17 01/05/17 01/05/17 Range/Units 13:50 12:40 02:10 WBC 8.9 (4.5-11.0) 10^3/ul RBC 3.07 L (3.5-6.1) 10^6/uL Hgb 8.1 L (14.0-18.0) gm/dL Hct 24.8 L (42.0-52.0) % MCV 80.8 (80.0-105.0) fL MCH 26.4 (25.0-35.0) pg MCHC 32.7 (31.0-37.0) g/dl RDW 21.3 H (11.5-14.5) % Plt Count 161 (120.0-450.0) 10^3/uL MPV 9.3 (7.0-11.0) fl Gran % 60.4 (50.0-68.0) % Lymph % (Auto) 18.4 L (22.0-35.0) % Schuyler % (Auto) 15.8 H (1.0-6.0) % Eos % (Auto) 4.4 (1.5-5.0) % Baso % (Auto) 1.0 (0.0-3.0) % Gran # 5.37 (1.4-6.5) Lymph # 1.6 (1.2-3.4) Schuyler # 1.4 H (0.1-0.6) Eos # 0.4 (0.0-0.7) Baso # 0.09 (0.0-2.0) K/mm3 Neutrophils % (Manual) (50.0-70.0) % Band Neutrophils % (0-2) % Lymphocytes % (Manual) (22.0-35.0) % Monocytes % (Manual) (1.0-6.0) % Eosinophils % (Manual) (0.0-3.0) % Platelet Evaluation (NORMAL) Large Platelets Polychromasia Hypochromasia Anisocytosis (manual) Microcytosis (manual) Target Cells Tear Drop Cells Acanthocytes (Spur) PT 14.6 H (9.9-11.8) Seconds INR 1.35 H (0.93-1.08) pO2 (30-55) mm/Hg VBG pH (7.32-7.43) VBG pCO2 (40-60) VBG HCO3 (21-28) mmol/l VBG Total CO2 (22-28) mmol.L VBG O2 Sat (Calc) (40-65) % VBG Base Excess (0.0-2.0) mmol/L VBG Potassium (3.6-5.2) mmol/L Sodium (132-148) mmol/L Chloride (98-107) mmol/L Glucose (75-110) mg/dl Lactate (0.7-2.1) mmol/L FiO2 % Potassium (3.6-5.0) mmol/L Carbon Dioxide (21-33) mmol/L Anion Gap (10-20) BUN (7-21) mg/dL Creatinine (0.5-1.4) mg/dL Est GFR ( Amer) Est GFR (Non-Af Amer) Random Glucose (70-110) mg/dL Calcium (8.4-10.5) mg/dL Phosphorus (2.5-4.5) mg/dL Magnesium (1.7-2.2) mg/dL Total Bilirubin (0.2-1.3) mg/dL AST (15-59) U/L ALT (7-56) U/L Alkaline Phosphatase (38-133) U/L Ammonia 40 H (9-33) umol/L Total Protein (5.8-8.3) g/dL Albumin (3.0-4.8) g/dL Globulin gm/dL Albumin/Globulin Ratio (1.1-1.8) Venous Blood Potassium (3.6-5.2) mmol/L Stool Occult Blood (NEGATIVE) Urine Opiates Screen (NEGATIVE) Urine Methadone Screen (NEGATIVE) Ur Barbiturates Screen (NEGATIVE) Ur Phencyclidine Scrn (NEGATIVE) Ur Amphetamines Screen (NEGATIVE) U Benzodiazepines Scrn (NEGATIVE) U Oth Cocaine Metabols (NEGATIVE) U Cannabinoids Screen (NEGATIVE) 01/05/17 01/05/17 01/04/17 Range/Units 02:10 02:10 18:55 WBC 9.7 D (4.5-11.0) 10^3/ul RBC 2.42 L (3.5-6.1) 10^6/uL Hgb 6.2 L* D (14.0-18.0) gm/dL Hct 19.0 L* (42.0-52.0) % MCV 78.5 L (80.0-105.0) fL MCH 25.6 (25.0-35.0) pg MCHC 32.6 (31.0-37.0) g/dl RDW 24.1 H (11.5-14.5) % Plt Count 181 (120.0-450.0) 10^3/uL MPV 9.6 (7.0-11.0) fl Gran % (50.0-68.0) % Lymph % (Auto) (22.0-35.0) % Schuyler % (Auto) (1.0-6.0) % Eos % (Auto) (1.5-5.0) % Baso % (Auto) (0.0-3.0) % Gran # (1.4-6.5) Lymph # (1.2-3.4) Schuyler # (0.1-0.6) Eos # (0.0-0.7) Baso # (0.0-2.0) K/mm3 Neutrophils % (Manual) 65 (50.0-70.0) % Band Neutrophils % 3 H (0-2) % Lymphocytes % (Manual) 19 L (22.0-35.0) % Monocytes % (Manual) 11 H (1.0-6.0) % Eosinophils % (Manual) 2 (0.0-3.0) % Platelet Evaluation Normal (NORMAL) Large Platelets Present Polychromasia 1+ Hypochromasia 2+ Anisocytosis (manual) 2+ Microcytosis (manual) 3+ Target Cells Slight Tear Drop Cells Slight Acanthocytes (Spur) Slight PT (9.9-11.8) Seconds INR (0.93-1.08) pO2 (30-55) mm/Hg VBG pH (7.32-7.43) VBG pCO2 (40-60) VBG HCO3 (21-28) mmol/l VBG Total CO2 (22-28) mmol.L VBG O2 Sat (Calc) (40-65) % VBG Base Excess (0.0-2.0) mmol/L VBG Potassium (3.6-5.2) mmol/L Sodium 140 (132-148) mmol/L Chloride 115 H (98-107) mmol/L Glucose (75-110) mg/dl Lactate (0.7-2.1) mmol/L FiO2 % Potassium 4.3 (3.6-5.0) mmol/L Carbon Dioxide 19 L (21-33) mmol/L Anion Gap 10 (10-20) BUN 48 H (7-21) mg/dL Creatinine 1.0 (0.5-1.4) mg/dL Est GFR ( Amer) > 60 Est GFR (Non-Af Amer) > 60 Random Glucose 106 (70-110) mg/dL Calcium 7.2 L (8.4-10.5) mg/dL Phosphorus 5.1 H (2.5-4.5) mg/dL Magnesium 2.1 (1.7-2.2) mg/dL Total Bilirubin 2.5 H (0.2-1.3) mg/dL AST 60 H (15-59) U/L ALT 43 (7-56) U/L Alkaline Phosphatase 108 (38-133) U/L Ammonia (9-33) umol/L Total Protein 5.3 L (5.8-8.3) g/dL Albumin 2.3 L (3.0-4.8) g/dL Globulin 3.0 gm/dL Albumin/Globulin Ratio 0.8 L (1.1-1.8) Venous Blood Potassium (3.6-5.2) mmol/L Stool Occult Blood Positive H (NEGATIVE) Urine Opiates Screen (NEGATIVE) Urine Methadone Screen (NEGATIVE) Ur Barbiturates Screen (NEGATIVE) Ur Phencyclidine Scrn (NEGATIVE) Ur Amphetamines Screen (NEGATIVE) U Benzodiazepines Scrn (NEGATIVE) U Oth Cocaine Metabols (NEGATIVE) U Cannabinoids Screen (NEGATIVE) 01/04/17 01/04/17 Range/Units 17:15 16:10 WBC (4.5-11.0) 10^3/ul RBC (3.5-6.1) 10^6/uL Hgb (14.0-18.0) gm/dL Hct (42.0-52.0) % MCV (80.0-105.0) fL MCH (25.0-35.0) pg MCHC (31.0-37.0) g/dl RDW (11.5-14.5) % Plt Count (120.0-450.0) 10^3/uL MPV (7.0-11.0) fl Gran % (50.0-68.0) % Lymph % (Auto) (22.0-35.0) % Schuyler % (Auto) (1.0-6.0) % Eos % (Auto) (1.5-5.0) % Baso % (Auto) (0.0-3.0) % Gran # (1.4-6.5) Lymph # (1.2-3.4) Schuyler # (0.1-0.6) Eos # (0.0-0.7) Baso # (0.0-2.0) K/mm3 Neutrophils % (Manual) (50.0-70.0) % Band Neutrophils % (0-2) % Lymphocytes % (Manual) (22.0-35.0) % Monocytes % (Manual) (1.0-6.0) % Eosinophils % (Manual) (0.0-3.0) % Platelet Evaluation (NORMAL) Large Platelets Polychromasia Hypochromasia Anisocytosis (manual) Microcytosis (manual) Target Cells Tear Drop Cells Acanthocytes (Spur) PT (9.9-11.8) Seconds INR (0.93-1.08) pO2 34 (30-55) mm/Hg VBG pH 7.37 (7.32-7.43) VBG pCO2 28.0 L (40-60) VBG HCO3 16.2 L (21-28) mmol/l VBG Total CO2 17.1 L (22-28) mmol.L VBG O2 Sat (Calc) 72.8 H (40-65) % VBG Base Excess -8.5 L (0.0-2.0) mmol/L VBG Potassium 4.9 (3.6-5.2) mmol/L Sodium 139.0 (132-148) mmol/L Chloride 120.0 H (98-107) mmol/L Glucose 109 (75-110) mg/dl Lactate 4.9 H* (0.7-2.1) mmol/L FiO2 21.0 % Potassium (3.6-5.0) mmol/L Carbon Dioxide (21-33) mmol/L Anion Gap (10-20) BUN (7-21) mg/dL Creatinine (0.5-1.4) mg/dL Est GFR ( Amer) Est GFR (Non-Af Amer) Random Glucose (70-110) mg/dL Calcium (8.4-10.5) mg/dL Phosphorus (2.5-4.5) mg/dL Magnesium (1.7-2.2) mg/dL Total Bilirubin (0.2-1.3) mg/dL AST (15-59) U/L ALT (7-56) U/L Alkaline Phosphatase (38-133) U/L Ammonia (9-33) umol/L Total Protein (5.8-8.3) g/dL Albumin (3.0-4.8) g/dL Globulin gm/dL Albumin/Globulin Ratio (1.1-1.8) Venous Blood Potassium 4.9 (3.6-5.2) mmol/L Stool Occult Blood (NEGATIVE) Urine Opiates Screen Negative (NEGATIVE) Urine Methadone Screen Negative (NEGATIVE) Ur Barbiturates Screen Negative (NEGATIVE) Ur Phencyclidine Scrn Negative (NEGATIVE) Ur Amphetamines Screen Negative (NEGATIVE) U Benzodiazepines Scrn Negative (NEGATIVE) U Oth Cocaine Metabols Negative (NEGATIVE) U Cannabinoids Screen Positive H (NEGATIVE) Laboratory Results - last 24 hr 01/04/17 01/04/17 01/04/17 16:10 17:15 18:55 WBC RBC Hgb Hct MCV MCH MCHC RDW Plt Count MPV Gran % Lymph % (Auto) Schuyler % (Auto) Eos % (Auto) Baso % (Auto) Gran # Lymph # Schuyler # Eos # Baso # Neutrophils % (Manual) Band Neutrophils % Lymphocytes % (Manual) Monocytes % (Manual) Eosinophils % (Manual) Platelet Evaluation Large Platelets Polychromasia Hypochromasia Anisocytosis (manual) Microcytosis (manual) Target Cells Tear Drop Cells Acanthocytes (Spur) PT INR pO2 34 VBG pH 7.37 VBG pCO2 28.0 L VBG HCO3 16.2 L VBG Total CO2 17.1 L VBG O2 Sat (Calc) 72.8 H VBG Base Excess -8.5 L VBG Potassium 4.9 Sodium 139.0 Chloride 120.0 H Glucose 109 Lactate 4.9 H* FiO2 21.0 Potassium Carbon Dioxide Anion Gap BUN Creatinine Est GFR ( Amer) Est GFR (Non-Af Amer) Random Glucose Calcium Phosphorus Magnesium Total Bilirubin AST ALT Alkaline Phosphatase Ammonia Total Protein Albumin Globulin Albumin/Globulin Ratio Venous Blood Potassium 4.9 Stool Occult Blood Positive H Urine Opiates Screen Negative Urine Methadone Screen Negative Ur Barbiturates Screen Negative Ur Phencyclidine Scrn Negative Ur Amphetamines Screen Negative U Benzodiazepines Scrn Negative U Oth Cocaine Metabols Negative U Cannabinoids Screen Positive H 01/05/17 01/05/17 01/05/17 02:10 02:10 02:10 WBC 9.7 D RBC 2.42 L Hgb 6.2 L* D Hct 19.0 L* MCV 78.5 L MCH 25.6 MCHC 32.6 RDW 24.1 H Plt Count 181 MPV 9.6 Gran % Lymph % (Auto) Schuyler % (Auto) Eos % (Auto) Baso % (Auto) Gran # Lymph # Schuyler # Eos # Baso # Neutrophils % (Manual) 65 Band Neutrophils % 3 H Lymphocytes % (Manual) 19 L Monocytes % (Manual) 11 H Eosinophils % (Manual) 2 Platelet Evaluation Normal Large Platelets Present Polychromasia 1+ Hypochromasia 2+ Anisocytosis (manual) 2+ Microcytosis (manual) 3+ Target Cells Slight Tear Drop Cells Slight Acanthocytes (Spur) Slight PT INR pO2 VBG pH VBG pCO2 VBG HCO3 VBG Total CO2 VBG O2 Sat (Calc) VBG Base Excess VBG Potassium Sodium 140 Chloride 115 H Glucose Lactate FiO2 Potassium 4.3 Carbon Dioxide 19 L Anion Gap 10 BUN 48 H Creatinine 1.0 Est GFR ( Amer) > 60 Est GFR (Non-Af Amer) > 60 Random Glucose 106 Calcium 7.2 L Phosphorus 5.1 H Magnesium 2.1 Total Bilirubin 2.5 H AST 60 H ALT 43 Alkaline Phosphatase 108 Ammonia 40 H Total Protein 5.3 L Albumin 2.3 L Globulin 3.0 Albumin/Globulin Ratio 0.8 L Venous Blood Potassium Stool Occult Blood Urine Opiates Screen Urine Methadone Screen Ur Barbiturates Screen Ur Phencyclidine Scrn Ur Amphetamines Screen U Benzodiazepines Scrn U Oth Cocaine Metabols U Cannabinoids Screen 01/05/17 01/05/17 12:40 13:50 WBC 8.9 RBC 3.07 L Hgb 8.1 L Hct 24.8 L MCV 80.8 MCH 26.4 MCHC 32.7 RDW 21.3 H Plt Count 161 MPV 9.3 Gran % 60.4 Lymph % (Auto) 18.4 L Schuyler % (Auto) 15.8 H Eos % (Auto) 4.4 Baso % (Auto) 1.0 Gran # 5.37 Lymph # 1.6 Schuyler # 1.4 H Eos # 0.4 Baso # 0.09 Neutrophils % (Manual) Band Neutrophils % Lymphocytes % (Manual) Monocytes % (Manual) Eosinophils % (Manual) Platelet Evaluation Large Platelets Polychromasia Hypochromasia Anisocytosis (manual) Microcytosis (manual) Target Cells Tear Drop Cells Acanthocytes (Spur) PT 14.6 H INR 1.35 H pO2 VBG pH VBG pCO2 VBG HCO3 VBG Total CO2 VBG O2 Sat (Calc) VBG Base Excess VBG Potassium Sodium Chloride Glucose Lactate FiO2 Potassium Carbon Dioxide Anion Gap BUN Creatinine Est GFR ( Amer) Est GFR (Non-Af Amer) Random Glucose Calcium Phosphorus Magnesium Total Bilirubin AST ALT Alkaline Phosphatase Ammonia Total Protein Albumin Globulin Albumin/Globulin Ratio Venous Blood Potassium Stool Occult Blood Urine Opiates Screen Urine Methadone Screen Ur Barbiturates Screen Ur Phencyclidine Scrn Ur Amphetamines Screen U Benzodiazepines Scrn U Oth Cocaine Metabols U Cannabinoids Screen Fingerstick Blood Sugar Results: 121 Results Reviewed to Date: Yes Review of Systems - Review of Systems All systems: reviewed and no additional remarkable complaints except - Neurological Neurological: Tremor - Psychiatric Psychiatric: Confusion Critical Care Progress Note - Prophylaxis GI Prophylaxis GI: PPI - Prophylaxis DVT Prophylaxis DVT: SCDs - Nutrition Nutrition: Nutrition Category Date Time Status NPO Diet [DIET] Diets 01/04/17 Dinner Ordered Assessment/Plan - Assessment and Plan (Free Text) Assessment: 51 year old male with a PMH of hepatitis C and chronic alcoholism who presented after r multiple episodes of bloody emesis and confusion, found to have severe anemia and elevated ammonia. Plan: Neurological Unchanged since yesterday, at times confused, confabulation, ammonia decreased continue lactulose, confused and somewhat agitated restless from alcohol withdrawal, has jessica and prn ativan but will start precedex gtt Cont CIWA Cardiovascular Hemodynamically stable, cont NS @ 150 and monitoring vital signs Pulmonary Protecting airway, maintaining sats >92%, monitoring Renal/ Fluids / Electrolytes Still pre-renal, cont NS @ 150, monitoring I&O, pseudohypocalcemia 2/2 hypoalbuminemia, Renetta Ca 8.56 GI Continues to be NPO, scoped on previous admit, GI followings and recs appreciated Continue protonix and octreotide gtts, no repeat emesis but on PRN zofran Infectious disease Afebrile No leukocytosis On ceftriaxone day 2, had elevated lactate but likely 2/2 bleeding ID following, appreciate recs Hematology/Oncology CBCs q6h, uptrending now at 8.1 last Hgb s/p 4U PRBCs Prophylaxis PPI gtt/SCDs Patient was seen and examined and case was discussed at length with attending physician. - Date & Time Date: 01/05/17 Time: 10:00 <Darlyn GALVAN,Kristin H - Last Filed: 01/05/17 15:40> CCU Objective - Vital Signs / Intake & Output Vital Signs (Last 4 hours): Vital Signs Temp Pulse Resp BP 01/05/17 12:15 95 H 21 130/70 01/05/17 12:00 97.6 F 97 H 18 130/79 01/05/17 11:45 96 H 19 136/78 Intake and Output (Last 8hrs): Intake & Output 01/05/17 01/05/17 01/05/17 06:59 14:59 22:59 Intake Total 375 690 4 Balance 375 690 4 Intake: IV 4 Blood Product 325 650 Red Blood Cells Cpd As1 0 325 Lr Unit [id number] Red Blood Cells Cpd As1 325 Lr Unit [id number] Red Blood Cells Cpd As1 325 Lr Unit [id number] Other 50 40 Red Blood Cells Cpd As1 20 Lr Unit [id number] Red Blood Cells Cpd As1 50 Lr Unit [id number] Red Blood Cells Cpd As1 20 Lr Unit [id number] Other: Voiding Method Incontinent - Medications Active Medications: Active Medications Generic Name Dose Route Start Last Admin Trade Name Freq PRN Reason Stop Dose Admin Pantoprazole Sodium 40 mg in 100 mls @ 20 mls/hr 01/04/17 14:45 01/05/17 14: 08 Protonix 40mg Ivpb IVPB 20 mls/hr .Q5H JESSICA Administration Octreotide Acetate 1,250 mcg/ 252.5 mls @ 5.05 mls/hr 01/04/17 15:45 16:48 Dextrose IV 25 mcg/hr .Q24H JESSICA 5.05 mls/hr Protocol Administration 25 MCG/HR Ceftriaxone Sodium 1 gm in 100 mls @ 100 mls/hr 01/05/17 10:00 01/05/17 10:56 Rocephin 1 Gram Ivpb IVPB 100 mls/hr DAILY JESSICA Administration Protocol Sodium Chloride 1,000 mls @ 150 mls/hr 01/04/17 20:15 Sodium Chloride 0.9% IV .Q6H40M JESSICA Dexmedetomidine HCl 400 mcg in 100 mls @ 3.969 mls/hr 01/05/17 13:47 15:05 Precedex 4 Mcg/Ml (100 Ml) IV 0.4 mcg/kg/hr .Q24H PRN 7.938 mls/hr Agitation Titration Protocol 0.2 MCG/KG/HR Lactulose 20 gm 01/04/17 22:00 01/05/17 00:43 Enulose PO Not Given HS JESSICA Lorazepam 1 mg 01/04/17 16:35 01/05/17 11:47 Ativan IVP 1 mg Q2 PRN Administration Agitation Protocol Ondansetron HCl 4 mg 01/04/17 15:28 Zofran Inj IVP Q6H PRN Nausea/Vomiting - Patient Studies Lab Studies: Lab Studies 01/05/17 01/05/17 01/05/17 Range/Units 13:50 12:40 02:10 WBC 8.9 (4.5-11.0) 10^3/ul RBC 3.07 L (3.5-6.1) 10^6/uL Hgb 8.1 L (14.0-18.0) gm/dL Hct 24.8 L (42.0-52.0) % MCV 80.8 (80.0-105.0) fL MCH 26.4 (25.0-35.0) pg MCHC 32.7 (31.0-37.0) g/dl RDW 21.3 H (11.5-14.5) % Plt Count 161 (120.0-450.0) 10^3/uL MPV 9.3 (7.0-11.0) fl Gran % 60.4 (50.0-68.0) % Lymph % (Auto) 18.4 L (22.0-35.0) % Schuyler % (Auto) 15.8 H (1.0-6.0) % Eos % (Auto) 4.4 (1.5-5.0) % Baso % (Auto) 1.0 (0.0-3.0) % Gran # 5.37 (1.4-6.5) Lymph # 1.6 (1.2-3.4) Schuyler # 1.4 H (0.1-0.6) Eos # 0.4 (0.0-0.7) Baso # 0.09 (0.0-2.0) K/mm3 Neutrophils % (Manual) (50.0-70.0) % Band Neutrophils % (0-2) % Lymphocytes % (Manual) (22.0-35.0) % Monocytes % (Manual) (1.0-6.0) % Eosinophils % (Manual) (0.0-3.0) % Platelet Evaluation (NORMAL) Large Platelets Polychromasia Hypochromasia Anisocytosis (manual) Microcytosis (manual) Target Cells Tear Drop Cells Acanthocytes (Spur) PT 14.6 H (9.9-11.8) Seconds INR 1.35 H (0.93-1.08) pO2 (30-55) mm/Hg VBG pH (7.32-7.43) VBG pCO2 (40-60) VBG HCO3 (21-28) mmol/l VBG Total CO2 (22-28) mmol.L VBG O2 Sat (Calc) (40-65) % VBG Base Excess (0.0-2.0) mmol/L VBG Potassium (3.6-5.2) mmol/L Sodium (132-148) mmol/L Chloride (98-107) mmol/L Glucose (75-110) mg/dl Lactate (0.7-2.1) mmol/L FiO2 % Potassium (3.6-5.0) mmol/L Carbon Dioxide (21-33) mmol/L Anion Gap (10-20) BUN (7-21) mg/dL Creatinine (0.5-1.4) mg/dL Est GFR ( Amer) Est GFR (Non-Af Amer) Random Glucose (70-110) mg/dL Calcium (8.4-10.5) mg/dL Phosphorus (2.5-4.5) mg/dL Magnesium (1.7-2.2) mg/dL Total Bilirubin (0.2-1.3) mg/dL AST (15-59) U/L ALT (7-56) U/L Alkaline Phosphatase (38-133) U/L Ammonia 40 H (9-33) umol/L Total Protein (5.8-8.3) g/dL Albumin (3.0-4.8) g/dL Globulin gm/dL Albumin/Globulin Ratio (1.1-1.8) Venous Blood Potassium (3.6-5.2) mmol/L Stool Occult Blood (NEGATIVE) Urine Opiates Screen (NEGATIVE) Urine Methadone Screen (NEGATIVE) Ur Barbiturates Screen (NEGATIVE) Ur Phencyclidine Scrn (NEGATIVE) Ur Amphetamines Screen (NEGATIVE) U Benzodiazepines Scrn (NEGATIVE) U Oth Cocaine Metabols (NEGATIVE) U Cannabinoids Screen (NEGATIVE) 01/05/17 01/05/17 01/04/17 Range/Units 02:10 02:10 18:55 WBC 9.7 D (4.5-11.0) 10^3/ul RBC 2.42 L (3.5-6.1) 10^6/uL Hgb 6.2 L* D (14.0-18.0) gm/dL Hct 19.0 L* (42.0-52.0) % MCV 78.5 L (80.0-105.0) fL MCH 25.6 (25.0-35.0) pg MCHC 32.6 (31.0-37.0) g/dl RDW 24.1 H (11.5-14.5) % Plt Count 181 (120.0-450.0) 10^3/uL MPV 9.6 (7.0-11.0) fl Gran % (50.0-68.0) % Lymph % (Auto) (22.0-35.0) % Schuyler % (Auto) (1.0-6.0) % Eos % (Auto) (1.5-5.0) % Baso % (Auto) (0.0-3.0) % Gran # (1.4-6.5) Lymph # (1.2-3.4) Schuyler # (0.1-0.6) Eos # (0.0-0.7) Baso # (0.0-2.0) K/mm3 Neutrophils % (Manual) 65 (50.0-70.0) % Band Neutrophils % 3 H (0-2) % Lymphocytes % (Manual) 19 L (22.0-35.0) % Monocytes % (Manual) 11 H (1.0-6.0) % Eosinophils % (Manual) 2 (0.0-3.0) % Platelet Evaluation Normal (NORMAL) Large Platelets Present Polychromasia 1+ Hypochromasia 2+ Anisocytosis (manual) 2+ Microcytosis (manual) 3+ Target Cells Slight Tear Drop Cells Slight Acanthocytes (Spur) Slight PT (9.9-11.8) Seconds INR (0.93-1.08) pO2 (30-55) mm/Hg VBG pH (7.32-7.43) VBG pCO2 (40-60) VBG HCO3 (21-28) mmol/l VBG Total CO2 (22-28) mmol.L VBG O2 Sat (Calc) (40-65) % VBG Base Excess (0.0-2.0) mmol/L VBG Potassium (3.6-5.2) mmol/L Sodium 140 (132-148) mmol/L Chloride 115 H (98-107) mmol/L Glucose (75-110) mg/dl Lactate (0.7-2.1) mmol/L FiO2 % Potassium 4.3 (3.6-5.0) mmol/L Carbon Dioxide 19 L (21-33) mmol/L Anion Gap 10 (10-20) BUN 48 H (7-21) mg/dL Creatinine 1.0 (0.5-1.4) mg/dL Est GFR ( Amer) > 60 Est GFR (Non-Af Amer) > 60 Random Glucose 106 (70-110) mg/dL Calcium 7.2 L (8.4-10.5) mg/dL Phosphorus 5.1 H (2.5-4.5) mg/dL Magnesium 2.1 (1.7-2.2) mg/dL Total Bilirubin 2.5 H (0.2-1.3) mg/dL AST 60 H (15-59) U/L ALT 43 (7-56) U/L Alkaline Phosphatase 108 (38-133) U/L Ammonia (9-33) umol/L Total Protein 5.3 L (5.8-8.3) g/dL Albumin 2.3 L (3.0-4.8) g/dL Globulin 3.0 gm/dL Albumin/Globulin Ratio 0.8 L (1.1-1.8) Venous Blood Potassium (3.6-5.2) mmol/L Stool Occult Blood Positive H (NEGATIVE) Urine Opiates Screen (NEGATIVE) Urine Methadone Screen (NEGATIVE) Ur Barbiturates Screen (NEGATIVE) Ur Phencyclidine Scrn (NEGATIVE) Ur Amphetamines Screen (NEGATIVE) U Benzodiazepines Scrn (NEGATIVE) U Oth Cocaine Metabols (NEGATIVE) U Cannabinoids Screen (NEGATIVE) 01/04/17 01/04/17 Range/Units 17:15 16:10 WBC (4.5-11.0) 10^3/ul RBC (3.5-6.1) 10^6/uL Hgb (14.0-18.0) gm/dL Hct (42.0-52.0) % MCV (80.0-105.0) fL MCH (25.0-35.0) pg MCHC (31.0-37.0) g/dl RDW (11.5-14.5) % Plt Count (120.0-450.0) 10^3/uL MPV (7.0-11.0) fl Gran % (50.0-68.0) % Lymph % (Auto) (22.0-35.0) % Schuyler % (Auto) (1.0-6.0) % Eos % (Auto) (1.5-5.0) % Baso % (Auto) (0.0-3.0) % Gran # (1.4-6.5) Lymph # (1.2-3.4) Schuyler # (0.1-0.6) Eos # (0.0-0.7) Baso # (0.0-2.0) K/mm3 Neutrophils % (Manual) (50.0-70.0) % Band Neutrophils % (0-2) % Lymphocytes % (Manual) (22.0-35.0) % Monocytes % (Manual) (1.0-6.0) % Eosinophils % (Manual) (0.0-3.0) % Platelet Evaluation (NORMAL) Large Platelets Polychromasia Hypochromasia Anisocytosis (manual) Microcytosis (manual) Target Cells Tear Drop Cells Acanthocytes (Spur) PT (9.9-11.8) Seconds INR (0.93-1.08) pO2 34 (30-55) mm/Hg VBG pH 7.37 (7.32-7.43) VBG pCO2 28.0 L (40-60) VBG HCO3 16.2 L (21-28) mmol/l VBG Total CO2 17.1 L (22-28) mmol.L VBG O2 Sat (Calc) 72.8 H (40-65) % VBG Base Excess -8.5 L (0.0-2.0) mmol/L VBG Potassium 4.9 (3.6-5.2) mmol/L Sodium 139.0 (132-148) mmol/L Chloride 120.0 H (98-107) mmol/L Glucose 109 (75-110) mg/dl Lactate 4.9 H* (0.7-2.1) mmol/L FiO2 21.0 % Potassium (3.6-5.0) mmol/L Carbon Dioxide (21-33) mmol/L Anion Gap (10-20) BUN (7-21) mg/dL Creatinine (0.5-1.4) mg/dL Est GFR ( Amer) Est GFR (Non-Af Amer) Random Glucose (70-110) mg/dL Calcium (8.4-10.5) mg/dL Phosphorus (2.5-4.5) mg/dL Magnesium (1.7-2.2) mg/dL Total Bilirubin (0.2-1.3) mg/dL AST (15-59) U/L ALT (7-56) U/L Alkaline Phosphatase (38-133) U/L Ammonia (9-33) umol/L Total Protein (5.8-8.3) g/dL Albumin (3.0-4.8) g/dL Globulin gm/dL Albumin/Globulin Ratio (1.1-1.8) Venous Blood Potassium 4.9 (3.6-5.2) mmol/L Stool Occult Blood (NEGATIVE) Urine Opiates Screen Negative (NEGATIVE) Urine Methadone Screen Negative (NEGATIVE) Ur Barbiturates Screen Negative (NEGATIVE) Ur Phencyclidine Scrn Negative (NEGATIVE) Ur Amphetamines Screen Negative (NEGATIVE) U Benzodiazepines Scrn Negative (NEGATIVE) U Oth Cocaine Metabols Negative (NEGATIVE) U Cannabinoids Screen Positive H (NEGATIVE) Laboratory Results - last 24 hr 01/04/17 01/04/17 01/04/17 16:10 17:15 18:55 WBC RBC Hgb Hct MCV MCH MCHC RDW Plt Count MPV Gran % Lymph % (Auto) Schuyler % (Auto) Eos % (Auto) Baso % (Auto) Gran # Lymph # Schuyler # Eos # Baso # Neutrophils % (Manual) Band Neutrophils % Lymphocytes % (Manual) Monocytes % (Manual) Eosinophils % (Manual) Platelet Evaluation Large Platelets Polychromasia Hypochromasia Anisocytosis (manual) Microcytosis (manual) Target Cells Tear Drop Cells Acanthocytes (Spur) PT INR pO2 34 VBG pH 7.37 VBG pCO2 28.0 L VBG HCO3 16.2 L VBG Total CO2 17.1 L VBG O2 Sat (Calc) 72.8 H VBG Base Excess -8.5 L VBG Potassium 4.9 Sodium 139.0 Chloride 120.0 H Glucose 109 Lactate 4.9 H* FiO2 21.0 Potassium Carbon Dioxide Anion Gap BUN Creatinine Est GFR ( Amer) Est GFR (Non-Af Amer) Random Glucose Calcium Phosphorus Magnesium Total Bilirubin AST ALT Alkaline Phosphatase Ammonia Total Protein Albumin Globulin Albumin/Globulin Ratio Venous Blood Potassium 4.9 Stool Occult Blood Positive H Urine Opiates Screen Negative Urine Methadone Screen Negative Ur Barbiturates Screen Negative Ur Phencyclidine Scrn Negative Ur Amphetamines Screen Negative U Benzodiazepines Scrn Negative U Oth Cocaine Metabols Negative U Cannabinoids Screen Positive H 01/05/17 01/05/17 01/05/17 02:10 02:10 02:10 WBC 9.7 D RBC 2.42 L Hgb 6.2 L* D Hct 19.0 L* MCV 78.5 L MCH 25.6 MCHC 32.6 RDW 24.1 H Plt Count 181 MPV 9.6 Gran % Lymph % (Auto) Schuyler % (Auto) Eos % (Auto) Baso % (Auto) Gran # Lymph # Schuyler # Eos # Baso # Neutrophils % (Manual) 65 Band Neutrophils % 3 H Lymphocytes % (Manual) 19 L Monocytes % (Manual) 11 H Eosinophils % (Manual) 2 Platelet Evaluation Normal Large Platelets Present Polychromasia 1+ Hypochromasia 2+ Anisocytosis (manual) 2+ Microcytosis (manual) 3+ Target Cells Slight Tear Drop Cells Slight Acanthocytes (Spur) Slight PT INR pO2 VBG pH VBG pCO2 VBG HCO3 VBG Total CO2 VBG O2 Sat (Calc) VBG Base Excess VBG Potassium Sodium 140 Chloride 115 H Glucose Lactate FiO2 Potassium 4.3 Carbon Dioxide 19 L Anion Gap 10 BUN 48 H Creatinine 1.0 Est GFR ( Amer) > 60 Est GFR (Non-Af Amer) > 60 Random Glucose 106 Calcium 7.2 L Phosphorus 5.1 H Magnesium 2.1 Total Bilirubin 2.5 H AST 60 H ALT 43 Alkaline Phosphatase 108 Ammonia 40 H Total Protein 5.3 L Albumin 2.3 L Globulin 3.0 Albumin/Globulin Ratio 0.8 L Venous Blood Potassium Stool Occult Blood Urine Opiates Screen Urine Methadone Screen Ur Barbiturates Screen Ur Phencyclidine Scrn Ur Amphetamines Screen U Benzodiazepines Scrn U Oth Cocaine Metabols U Cannabinoids Screen 01/05/17 01/05/17 12:40 13:50 WBC 8.9 RBC 3.07 L Hgb 8.1 L Hct 24.8 L MCV 80.8 MCH 26.4 MCHC 32.7 RDW 21.3 H Plt Count 161 MPV 9.3 Gran % 60.4 Lymph % (Auto) 18.4 L Schuyler % (Auto) 15.8 H Eos % (Auto) 4.4 Baso % (Auto) 1.0 Gran # 5.37 Lymph # 1.6 Schuyler # 1.4 H Eos # 0.4 Baso # 0.09 Neutrophils % (Manual) Band Neutrophils % Lymphocytes % (Manual) Monocytes % (Manual) Eosinophils % (Manual) Platelet Evaluation Large Platelets Polychromasia Hypochromasia Anisocytosis (manual) Microcytosis (manual) Target Cells Tear Drop Cells Acanthocytes (Spur) PT 14.6 H INR 1.35 H pO2 VBG pH VBG pCO2 VBG HCO3 VBG Total CO2 VBG O2 Sat (Calc) VBG Base Excess VBG Potassium Sodium Chloride Glucose Lactate FiO2 Potassium Carbon Dioxide Anion Gap BUN Creatinine Est GFR ( Amer) Est GFR (Non-Af Amer) Random Glucose Calcium Phosphorus Magnesium Total Bilirubin AST ALT Alkaline Phosphatase Ammonia Total Protein Albumin Globulin Albumin/Globulin Ratio Venous Blood Potassium Stool Occult Blood Urine Opiates Screen Urine Methadone Screen Ur Barbiturates Screen Ur Phencyclidine Scrn Ur Amphetamines Screen U Benzodiazepines Scrn U Oth Cocaine Metabols U Cannabinoids Screen Critical Care Progress Note - Nutrition Nutrition: Nutrition Category Date Time Status NPO Diet [DIET] Diets 01/04/17 Dinner Ordered Attending/Attestation - Attestation I have personally seen and examined this patient.: Yes I have fully participated in the care of the patient.: Yes I have reviewed all pertinent clinical information: Yes Notes (Text): 01/05/17 15:35 51 y/o M w/ UGI bleed secondary to presumed Alcoholic gastritis vs Ulcers. Continue on Protonix bid PRBC x 4 units PRBC given. NPO GI consult to determine for EGD, last EGD 11/2016 ( 3 ulcers) Unsure of Liver status, possible cirrohtic? INR WNL, Platelets> 50k and HGB>7 dvt p CC time 65 min
[2017-01-05] MEDS: Octreotide 1,250 MCG in Dextrose 5% In Water 250 ML IV SCH (15:46)
--- NOTE | 2017-01-05 16:59 | CP.PCM.PN ---
<Destiny Peng - Last Filed: 01/05/17 17:13> Subjective - Date & Time of Evaluation Date of Evaluation: 01/05/17 Time of Evaluation: 16:58 - Subjective Subjective: HOSPITALISTS PROGRESS NOTE Pt is seen and examined at bedside. Patient was transfused 2 units overnight and repeat Hgb is 6.2. Patient is being transfused 3rd bag of PRBC currently. At time of examination, patient is alert and oriented x 3. Patient is somnolent though. Patient does not answer anymore questions. Objective - Vital Signs/Intake and Output Vital Signs (last 24 hours): Temp Pulse Resp BP Pulse Ox 98.2 F 84 13 113/61 100 01/05/17 15:58 01/05/17 15:45 01/05/17 15:45 01/05/17 15:45 01/05/17 15:45 Intake and Output: 01/05/17 01/05/17 06:59 18:59 Intake Total 1803 816.5 Balance 1803 816.5 - Medications Medications: Current Medications Pantoprazole Sodium (Protonix 40mg Ivpb) 40 mg in 100 mls @ 20 mls/hr IVPB .Q5H [facility] Last Admin: 01/05/17 14:08 Dose: 20 mls/hr Octreotide Acetate 1,250 mcg/ (Dextrose) 252.5 mls @ 5.05 mls/hr IV .Q24H [facility]; 25 MCG/HR PRN Reason: Protocol Last Admin: 01/05/17 15:46 Dose: 25 mcg/hr, 5.05 mls/hr Ceftriaxone Sodium (Rocephin 1 Gram Ivpb) 1 gm in 100 mls @ 100 mls/hr IVPB DAILY [facility] PRN Reason: Protocol Last Admin: 01/05/17 10:56 Dose: 100 mls/hr Sodium Chloride (Sodium Chloride 0.9%) 1,000 mls @ 150 mls/hr IV .Q6H40M [facility] Dexmedetomidine HCl (Precedex 4 Mcg/Ml (100 Ml)) 400 mcg in 100 mls @ 3.969 mls /hr IV .Q24H PRN; Protocol; 0.2 MCG/KG/HR PRN Reason: Agitation Last Titration: 01/05/17 15:05 Dose: 0.4 mcg/kg/hr, 7.938 mls/hr Lactulose (Enulose) 20 gm PO HS [facility] Last Admin: 01/05/17 00:43 Dose: Not Given Lorazepam (Ativan) 1 mg IVP Q2 PRN; Protocol PRN Reason: Agitation Last Admin: 01/05/17 11:47 Dose: 1 mg Ondansetron HCl (Zofran Inj) 4 mg IVP Q6H PRN PRN Reason: Nausea/Vomiting - Labs Labs: 01/05/17 13:50 01/05/17 02:10 PT 14.6 Seconds (9.9-11.8) H 01/05/17 12:40 INR 1.35 (0.93-1.08) H 01/05/17 12:40 APTT 29.0 Seconds (23.7-30.8) 01/04/17 13:53 - Constitutional Appears: Non-toxic, No Acute Distress - ENT Exam ENT Exam: Mucous Membranes Moist - Respiratory Exam Respiratory Exam: Clear to Ausculation Bilateral. absent: Rales, Rhonchi, Wheezes - Cardiovascular Exam Cardiovascular Exam: REGULAR RHYTHM, +S1, +S2. absent: Gallop, Rubs, Murmur - GI/Abdominal Exam GI & Abdominal Exam: Soft, Normal Bowel Sounds. absent: Distended, Firm, Guarding, Rigid, Tenderness - Extremities Exam Extremities Exam: absent: Pedal Edema, Tenderness - Neurological Exam Neurological Exam: Alert, Awake, Oriented x3 - Psychiatric Exam Psychiatric exam: Normal Affect, Normal Mood - Skin Skin Exam: Dry, Intact, Normal Color, Warm Assessment and Plan - Assessment and Plan (Free Text) Assessment: 51yo M with PMHx of GI blee, Gastric ulcers, questionable esophageal varices, cirrhosis, Hepatitis C, ETOH abuse here for evaluation of Dizziness, generalized Fatigue, ETOH abuse. Possible current GI bleeding. Patient received 4 units of PRBC. Repeat Hgb is 8.1. Ammonia level is down trending (40 today) . 1. Possible upper GI Bleed Patient is a poor historian, with some confabulation and mild confusion GI consult, Dr. Galaviz, appreciate recs. No plan for EGD at this time. Last EGD was on 11/24/16 which showed antral ulcer and gastritis Protonix drip Octreotide drip Aspiration precautions elevate head of bed Strict I&Os NPO except meds 2. r/o Sepsis Afebrile and WBC count improving Procal ordered. Will follow up Will start abx for now: Cirrhosis with possible GI bleed. f/u Blood Cx f/u Urine Cx Will continue rocephin 3. Probable early Hepatic Encephalopathy mild confusion, confabulation and poor insight Ammonia trending down Lactulose 20 mg PO HS with goal of BM 4-6 times /day MELDS score is 15 with mortality of 6.0% in 3 months Discriminant factor of 31.9%. Patient will be started on pentoxifylline 400 mg po tid 4. ETOH abuse CIWA protocol Started on precedex drip for withdrawal Ativan 1 mg po q2 prn seizure precautions 5. Lower Extremity Swelling consider secondary to advanced liver disease f/u lower extremity doppler to r/o DVT Will get echo 6. PPx On Protonix drip awaiting doppler study to r/o DVT SCDs Discussed case with Dr. Santizo <Valentina Santizo B - Last Filed: 01/05/17 18:18> Objective - Vital Signs/Intake and Output Vital Signs (last 24 hours): Temp Pulse Resp BP Pulse Ox 98.2 F 76 11 L 114/63 97 01/05/17 15:58 01/05/17 17:00 01/05/17 17:00 01/05/17 17:00 01/05/17 17:00 Intake and Output: 01/05/17 01/05/17 06:59 18:59 Intake Total 1803 816.5 Balance 1803 816.5 - Medications Medications: Current Medications Pantoprazole Sodium (Protonix 40mg Ivpb) 40 mg in 100 mls @ 20 mls/hr IVPB .Q5H [facility] Last Admin: 01/05/17 14:08 Dose: 20 mls/hr Octreotide Acetate 1,250 mcg/ (Dextrose) 252.5 mls @ 5.05 mls/hr IV .Q24H [facility]ESAR; 25 MCG/HR PRN Reason: Protocol Last Admin: 01/05/17 15:46 Dose: 25 mcg/hr, 5.05 mls/hr Ceftriaxone Sodium (Rocephin 1 Gram Ivpb) 1 gm in 100 mls @ 100 mls/hr IVPB DAILY CESAR PRN Reason: Protocol Last Admin: 01/05/17 10:56 Dose: 100 mls/hr Sodium Chloride (Sodium Chloride 0.9%) 1,000 mls @ 150 mls/hr IV .Q6H40M [facility] Last Admin: 01/05/17 17:17 Dose: 150 mls/hr Dexmedetomidine HCl (Precedex 4 Mcg/Ml (100 Ml)) 400 mcg in 100 mls @ 3.969 mls /hr IV .Q24H PRN; Protocol; 0.2 MCG/KG/HR PRN Reason: Agitation Last Titration: 01/05/17 15:05 Dose: 0.4 mcg/kg/hr, 7.938 mls/hr Lactulose (Enulose) 20 gm PO HS [facility] Last Admin: 01/05/17 00:43 Dose: Not Given Lorazepam (Ativan) 1 mg IVP Q2 PRN; Protocol PRN Reason: Agitation Last Admin: 01/05/17 11:47 Dose: 1 mg Ondansetron HCl (Zofran Inj) 4 mg IVP Q6H PRN PRN Reason: Nausea/Vomiting Pentoxifylline (Pentoxil) 400 mg PO TID CESAR - Labs Labs: 01/05/17 13:50 01/05/17 02:10 PT 14.6 Seconds (9.9-11.8) H 01/05/17 12:40 INR 1.35 (0.93-1.08) H 01/05/17 12:40 APTT 29.0 Seconds (23.7-30.8) 01/04/17 13:53 Attending/Attestation - Attestation I have personally seen and examined this patient.: Yes I have fully participated in the care of the patient.: Yes I have reviewed all pertinent clinical information, including history, physical exam and plan: Yes Notes (Text): I have seen and examined patient with the resident in ICU. Agree with the above note with the following additions/ exceptions: Briefly this is 51 year old male with history of GI bleed, gastric ulcers, hepatic encephalopathy, cirrhosis, Hep C (known and untreated), noncompliance with follow up and alcohol abuse who was brought for evaluation of generalized weakness, hematemesis, hematochezia and found to have severe symptomatic anemia (4.8 on admission). He was given 2 units so far. Repeat Hb is 6.2. He is getting 3rd unit currently. He is somnolent however oriented x3. Continue protonix and octreotide drip. Continue lactulose and lasix. There is no plan for EGD at this time. He is afebrile. Procal and blood cultures pending. Continue rocephin for now. MELD Score is 15 with 6% mortality in 3 months. DF 32. Discussed with Dr Galaviz. Patient will be started on pentoxifylline. Corrected calcium is 8.6. He has NAGMA most likely due to diarrhea on IVF. Will monitor for alcohol withdrawal. Will f/u on LE ultrasound. Echo pending. Prognosis is poor secondary to continuous alcohol abuse and noncompliance with follow-up. Currently patient is not a candidate for liver transplant due to continuous alcohol abuse. Patient will be advised to follow-up with [facility] and [facility] hepatology/ hepatitis C clinic upon discharge. Dr Valentina Santizo
[2017-01-05] MEDS: Sodium Chloride 0.9% 1,000 ML IV SCH (17:17)
[2017-01-05 20:17] LABS: ADD MANUAL DIFF? NO
[2017-01-05 20:23] LABS: BASO # 0.02 K/mm3 (0.0-2.0); BASO % 0.6 % (0.0-3.0); EOS # 0.2 (0.0-0.7); EOS % 6.6 % (1.5-5.0); LYMPH # 0.6 (1.2-3.4); LYMPH % 17.7 % (22.0-35.0); MEAN CELL VOLUME 80.2 fL (80.0-105.0); MEAN CORPUSCULAR HEMOGLOBIN 26.5 pg (25.0-35.0); MEAN PLATELET VOLUME 8.9 fl (7.0-11.0); MONO # 0.6 (0.1-0.6); MONO % 17.1 % (1.0-6.0); PLATELET COUNT 105 10^3/uL (120.0-450.0); RED CELL DISTRIBUTION WIDTH 21.1 % (11.5-14.5); WHITE BLOOD COUNT 3.6 10^3/ul (4.5-11.0)
[2017-01-05 20:26] LABS: HEMATOCRIT 20.6 % (42.0-52.0)
[2017-01-06] MEDS: Pantoprazole 40mg/100ml IVPB 40 MG/100 ML BAG IVPB SCH ×3 (01:44→11:27)
[2017-01-06] MEDS: Sodium Chloride 0.9% 1,000 ML IV SCH ×3 (03:08→20:49)
[2017-01-06 03:20] LABS: ADD MANUAL DIFF? NO
[2017-01-06 03:34] LABS: INR 1.41 (0.93-1.08); PARTIAL THROMBOPLASTIN TIME 30.1 Seconds (23.7-30.8)
[2017-01-06 03:41] LABS: BASO # 0.04 K/mm3 (0.0-2.0); BASO % 1.1 % (0.0-3.0); EOS # 0.3 (0.0-0.7); EOS % 9.4 % (1.5-5.0); GRAN # 2.08 (1.4-6.5); GRAN % 57.9 % (50.0-68.0); HEMATOCRIT 26.5 % (42.0-52.0); LYMPH # 0.7 (1.2-3.4); LYMPH % 18.3 % (22.0-35.0); MEAN CELL VOLUME 81.8 fL (80.0-105.0); MEAN CORPUSCULAR HEMOGLOBIN 27.8 pg (25.0-35.0); MEAN PLATELET VOLUME 9.2 fl (7.0-11.0); MONO # 0.5 (0.1-0.6); MONO % 13.3 % (1.0-6.0); PLATELET COUNT 106 10^3/uL (120.0-450.0); RED CELL DISTRIBUTION WIDTH 19.5 % (11.5-14.5); WHITE BLOOD COUNT 3.6 10^3/ul (4.5-11.0)
[2017-01-06 03:44] LABS: ALB/GLOB RATIO 0.7 (1.1-1.8); ALKALINE PHOSPHATASE 101 U/L (38-133); ALT/SGPT 50 U/L (7-56); AST/SGOT 89 U/L (15-59); BILIRUBIN,TOTAL 3.1 mg/dL (0.2-1.3); BLOOD UREA NITROGEN 34 mg/dL (7-21); CARBON DIOXIDE 23 mmol/L (21-33); CHLORIDE 117 mmol/L (98-107); GFR AFRICAN-AMERICAN > 60; GLUCOSE,RANDOM 98 mg/dL (70-110); POTASSIUM 3.6 mmol/L (3.6-5.0); SODIUM 141 mmol/L (132-148)
[2017-01-06] MEDS: Dexmedetomidine HCl 4mcg/ml 400 MCG/100 ML BOTTLE IV PRN (04:55)
[2017-01-06 08:57] LABS: ADD MANUAL DIFF? NO
--- NOTE | 2017-01-06 09:09 | US ---
HISTORY: Leg pain and swelling. Evaluate for DVT PHYSICIAN(S): Lowell Villegas MD. TECHNIQUE: Duplex sonography and color-flow Doppler with graded compression were used to evaluate the deep venous systems of both lower extremities. FINDINGS: The visualized deep venous systems of both lower extremities are sonographically normal and compressible. Normal wave forms and augmentation are seen. There is no sonographic evidence for deep venous thrombosis in the visualized segments of both lower extremities. IMPRESSION: No sonographic evidence for deep venous thrombosis in the visualized segments of both lower extremities.
[2017-01-06 09:12] LABS: BASO # 0.04 K/mm3 (0.0-2.0); BASO % 1.2 % (0.0-3.0); EOS # 0.3 (0.0-0.7); EOS % 8.4 % (1.5-5.0); GRAN # 1.97 (1.4-6.5); GRAN % 58.8 % (50.0-68.0); LYMPH # 0.7 (1.2-3.4); MEAN CELL VOLUME 82.9 fL (80.0-105.0); MEAN CORPUSCULAR HEMOGLOBIN 27.4 pg (25.0-35.0); MEAN CORPUSCULAR HGB CONC 33.1 g/dl (31.0-37.0); MEAN PLATELET VOLUME 9.9 fl (7.0-11.0); MONO # 0.4 (0.1-0.6); MONO % 11.6 % (1.0-6.0); PLATELET COUNT 113 10^3/uL (120.0-450.0); RED CELL DISTRIBUTION WIDTH 19.6 % (11.5-14.5); WHITE BLOOD COUNT 3.4 10^3/ul (4.5-11.0)
[2017-01-06] MEDS: cefTRIAXone 1 gm 1 GM/100 ML BAG IVPB SCH (09:20)
--- NOTE | 2017-01-06 09:56 | CP.CCUPN ---
<Manan Jackson - Last Filed: 01/06/17 14:25> CCU Subjective - Physician Review Events Since Last Encounter (Free Text): 01/06/17 09:53 Manan Jackson D.O. PGY-1, Internal Medicine Resident, ICU Progress Note 51 year old male with a PMH of hepatitis C, previous GI bleeds with fundic varicies on EGD in 2013, and chronic alcoholism with cirrhosis who presented with coffee ground emesis and confusion, found to have severe anemia. Patient was seen and examined. Patient is still somewhat confused but comfortable and able to answer questions. Only complaint at this time is that he is thirsty and his mouth is dry. Overnight found to have another drop in his Hgb to 6.8 and was transfused another 2 units for a total of 6. CCU Objective - Vital Signs / Intake & Output Vital Signs (Last 4 hours): Vital Signs Pulse Resp BP Pulse Ox 01/06/17 08:15 111/74 01/06/17 08:14 74 22 94 L 01/06/17 08:00 73 143/68 91 L 01/06/17 07:45 64 15 125/80 96 01/06/17 07:31 70 18 115/69 98 01/06/17 07:15 48 L 10 L 144/84 99 01/06/17 07:00 52 L 11 L 148/70 97 01/06/17 06:45 48 L 11 L 140/83 96 01/06/17 06:30 57 L 11 L 141/75 96 01/06/17 06:15 67 12 115/70 98 01/06/17 06:00 54 L 11 L 126/73 96 Intake and Output (Last 8hrs): Intake & Output 01/05/17 01/06/17 01/06/17 22:59 06:59 14:59 Intake Total 1358.5 3319 Output Total 1600 550 Balance -241.5 3319 -550 Intake: IV 1358.5 2344 Left Antecubital 0 Right Antecubital 300 300 Right Forearm 800 1800 Right Wrist 36 144 Oral 0 Blood Product 0 975 Red Blood Cells Cpd As1 0 325 Lr Unit [id number] Red Blood Cells Cpd As1 0 Lr Unit [id number] Output: Urine 1600 550 Urine, Voided 1600 550 Other: Voiding Method Incontinent # Voids Urine, Voided 4 # Bowel Movements 2 0 - Physical Exam Head: Positive for: Atraumatic, Normocephalic Pupils: Positive for: PERRL Extroacular Muscles: Positive for: EOMI Conjunctiva: Positive for: Icteric Ears: Positive for: Normal Mouth: Positive for: Moist Mucous Membranes Pharnyx: Positive for: Normal. Negative for: ERYTHEMA, EXUDATE Nose (External): Positive for: Atraumatic Neck: Positive for: Normal Range of Motion, Trachea Midline. Negative for: JVD , Lymphadenopathy Respiratory/Chest: Positive for: Clear to Auscultation, Good Air Exchange. Negative for: Respiratory Distress, Accessory Muscle Use, Rales, Rhonchi Cardiovascular: Positive for: Regular Rate and Rhythm. Negative for: Murmurs, Rub, Gallop Abdomen: Positive for: Distention (mild), Normal Bowel Sounds. Negative for: Tenderness, Peritoneal Signs Rectal: Negative for: Gross Blood Back: Negative for: Midline Tenderness, Paraspinal Tenderness Upper Extremity: Positive for: Normal Inspection. Negative for: Cyanosis, Edema Lower Extremity: Positive for: Edema (BL +2 by ankle), Capillary Refill < 2 s, Other (SCDs in place). Negative for: Tenderness, Swelling, Erythema, Temperature Abnormalties Neurological: Positive for: Other (awake, alert, oriented to self and place, year but not month or day, not situation, no focal motor deficits, follows simple commands) Skin: Positive for: Warm, Dry, Other (jaundice). Negative for: Rashes Psychiatric: Negative for: Depressed Mood, Suicidal Ideation - Medications Active Medications: Active Medications Generic Name Dose Route Start Last Admin Trade Name Freq PRN Reason Stop Dose Admin Pantoprazole Sodium 40 mg in 100 mls @ 20 mls/hr 01/04/17 14:45 01/06/17 06: 35 Protonix 40mg Ivpb IVPB 20 mls/hr .Q5H CESAR Administration Octreotide Acetate 1,250 mcg/ 252.5 mls @ 5.05 mls/hr 01/04/17 15:45 15:46 Dextrose IV 25 mcg/hr .Q24H CESAR 5.05 mls/hr Protocol Administration 25 MCG/HR Ceftriaxone Sodium 1 gm in 100 mls @ 100 mls/hr 01/05/17 10:00 01/06/17 09:20 Rocephin 1 Gram Ivpb IVPB 100 mls/hr DAILY CESAR Administration Protocol Sodium Chloride 1,000 mls @ 150 mls/hr 01/04/17 20:15 01/06/17 09:17 Sodium Chloride 0.9% IV 150 mls/hr .Q6H40M CESAR Administration Dexmedetomidine HCl 400 mcg in 100 mls @ 3.969 mls/hr 01/05/17 13:47 05:07 Precedex 4 Mcg/Ml (100 Ml) IV 0 mcg/kg/hr .Q24H PRN 0 mls/hr Agitation Titration Protocol 0.2 MCG/KG/HR Lactulose 20 gm 01/04/17 22:00 01/05/17 21:46 Enulose PO Not Given HS CESAR Lorazepam 1 mg 01/04/17 16:35 01/06/17 01:55 Ativan IVP 1 mg Q2 PRN Administration Agitation Protocol Ondansetron HCl 4 mg 01/04/17 15:28 Zofran Inj IVP Q6H PRN Nausea/Vomiting Pentoxifylline 400 mg 01/05/17 18:00 Pentoxil PO TID CESAR - Patient Studies Lab Studies: Microbiology Studies 01/04/17 17:30 MRSA Culture (Admit) - Final Naris MRSA NOT DETECTED Lab Studies 01/06/17 01/06/17 01/06/17 Range/Units 08:40 03:10 03:10 WBC 3.4 L (4.5-11.0) 10^3/ul RBC 3.50 (3.5-6.1) 10^6/uL Hgb 9.6 L (14.0-18.0) gm/dL Hct 29.0 L (42.0-52.0) % MCV 82.9 (80.0-105.0) fL MCH 27.4 (25.0-35.0) pg MCHC 33.1 (31.0-37.0) g/dl RDW 19.6 H (11.5-14.5) % Plt Count 113 L (120.0-450.0) 10^3/uL MPV 9.9 (7.0-11.0) fl Gran % 58.8 (50.0-68.0) % Lymph % (Auto) 20.0 L (22.0-35.0) % [place] % (Auto) 11.6 H (1.0-6.0) % Eos % (Auto) 8.4 H (1.5-5.0) % Baso % (Auto) 1.2 (0.0-3.0) % Gran # 1.97 (1.4-6.5) Lymph # 0.7 L (1.2-3.4) [place] # 0.4 (0.1-0.6) Eos # 0.3 (0.0-0.7) Baso # 0.04 (0.0-2.0) K/mm3 PT (9.9-11.8) Seconds INR (0.93-1.08) APTT (23.7-30.8) Seconds Sodium 141 (132-148) mmol/L Potassium 3.6 (3.6-5.0) mmol/L Chloride 117 H (98-107) mmol/L Carbon Dioxide 23 (21-33) mmol/L Anion Gap 5 L (10-20) BUN 34 H (7-21) mg/dL Creatinine 0.9 (0.5-1.4) mg/dL Est GFR ( Amer) > 60 Est GFR (Non-Af Amer) > 60 Random Glucose 98 (70-110) mg/dL Calcium 7.0 L (8.4-10.5) mg/dL Total Bilirubin 3.1 H (0.2-1.3) mg/dL AST 89 H (15-59) U/L ALT 50 (7-56) U/L Alkaline Phosphatase 101 (38-133) U/L Ammonia 58 H (9-33) umol/L Total Protein 5.0 L (5.8-8.3) g/dL Albumin 2.0 L (3.0-4.8) g/dL Globulin 3.0 gm/dL Albumin/Globulin Ratio 0.7 L (1.1-1.8) Procalcitonin (0.19-0.49) NG/ML 01/06/17 01/06/17 01/05/17 Range/Units 03:10 03:10 20:16 WBC 3.6 L 3.6 L D (4.5-11.0) 10^3/ul RBC 3.24 L 2.57 L (3.5-6.1) 10^6/uL Hgb 9.0 L 6.8 L* (14.0-18.0) gm/dL Hct 26.5 L 20.6 L* (42.0-52.0) % MCV 81.8 80.2 (80.0-105.0) fL MCH 27.8 26.5 (25.0-35.0) pg MCHC 34.0 33.0 (31.0-37.0) g/dl RDW 19.5 H 21.1 H (11.5-14.5) % Plt Count 106 L 105 L (120.0-450.0) 10^3/uL MPV 9.2 8.9 (7.0-11.0) fl Gran % 57.9 58.0 (50.0-68.0) % Lymph % (Auto) 18.3 L 17.7 L (22.0-35.0) % [place] % (Auto) 13.3 H 17.1 H (1.0-6.0) % Eos % (Auto) 9.4 H 6.6 H (1.5-5.0) % Baso % (Auto) 1.1 0.6 (0.0-3.0) % Gran # 2.08 2.10 (1.4-6.5) Lymph # 0.7 L 0.6 L (1.2-3.4) [place] # 0.5 0.6 (0.1-0.6) Eos # 0.3 0.2 (0.0-0.7) Baso # 0.04 0.02 (0.0-2.0) K/mm3 PT 15.2 H (9.9-11.8) Seconds INR 1.41 H (0.93-1.08) APTT 30.1 (23.7-30.8) Seconds Sodium (132-148) mmol/L Potassium (3.6-5.0) mmol/L Chloride (98-107) mmol/L Carbon Dioxide (21-33) mmol/L Anion Gap (10-20) BUN (7-21) mg/dL Creatinine (0.5-1.4) mg/dL Est GFR ( Amer) Est GFR (Non-Af Amer) Random Glucose (70-110) mg/dL Calcium (8.4-10.5) mg/dL Total Bilirubin (0.2-1.3) mg/dL AST (15-59) U/L ALT (7-56) U/L Alkaline Phosphatase (38-133) U/L Ammonia (9-33) umol/L Total Protein (5.8-8.3) g/dL Albumin (3.0-4.8) g/dL Globulin gm/dL Albumin/Globulin Ratio (1.1-1.8) Procalcitonin (0.19-0.49) NG/ML 01/05/17 01/05/17 01/05/17 Range/Units 13:50 12:40 12:40 WBC 8.9 (4.5-11.0) 10^3/ul RBC 3.07 L (3.5-6.1) 10^6/uL Hgb 8.1 L (14.0-18.0) gm/dL Hct 24.8 L (42.0-52.0) % MCV 80.8 (80.0-105.0) fL MCH 26.4 (25.0-35.0) pg MCHC 32.7 (31.0-37.0) g/dl RDW 21.3 H (11.5-14.5) % Plt Count 161 (120.0-450.0) 10^3/uL MPV 9.3 (7.0-11.0) fl Gran % 60.4 (50.0-68.0) % Lymph % (Auto) 18.4 L (22.0-35.0) % [place] % (Auto) 15.8 H (1.0-6.0) % Eos % (Auto) 4.4 (1.5-5.0) % Baso % (Auto) 1.0 (0.0-3.0) % Gran # 5.37 (1.4-6.5) Lymph # 1.6 (1.2-3.4) [place] # 1.4 H (0.1-0.6) Eos # 0.4 (0.0-0.7) Baso # 0.09 (0.0-2.0) K/mm3 PT 14.6 H (9.9-11.8) Seconds INR 1.35 H (0.93-1.08) APTT (23.7-30.8) Seconds Sodium (132-148) mmol/L Potassium (3.6-5.0) mmol/L Chloride (98-107) mmol/L Carbon Dioxide (21-33) mmol/L Anion Gap (10-20) BUN (7-21) mg/dL Creatinine (0.5-1.4) mg/dL Est GFR ( Amer) Est GFR (Non-Af Amer) Random Glucose (70-110) mg/dL Calcium (8.4-10.5) mg/dL Total Bilirubin (0.2-1.3) mg/dL AST (15-59) U/L ALT (7-56) U/L Alkaline Phosphatase (38-133) U/L Ammonia (9-33) umol/L Total Protein (5.8-8.3) g/dL Albumin (3.0-4.8) g/dL Globulin gm/dL Albumin/Globulin Ratio (1.1-1.8) Procalcitonin 0.59 H (0.19-0.49) NG/ML Laboratory Results - last 24 hr 01/05/17 01/05/17 01/05/17 12:40 12:40 13:50 WBC 8.9 RBC 3.07 L Hgb 8.1 L Hct 24.8 L MCV 80.8 MCH 26.4 MCHC 32.7 RDW 21.3 H Plt Count 161 MPV 9.3 Gran % 60.4 Lymph % (Auto) 18.4 L [place] % (Auto) 15.8 H Eos % (Auto) 4.4 Baso % (Auto) 1.0 Gran # 5.37 Lymph # 1.6 [place] # 1.4 H Eos # 0.4 Baso # 0.09 PT 14.6 H INR 1.35 H APTT Sodium Potassium Chloride Carbon Dioxide Anion Gap BUN Creatinine Est GFR ( Amer) Est GFR (Non-Af Amer) Random Glucose Calcium Total Bilirubin AST ALT Alkaline Phosphatase Ammonia Total Protein Albumin Globulin Albumin/Globulin Ratio Procalcitonin 0.59 H 01/05/17 01/06/17 01/06/17 20:16 03:10 03:10 WBC 3.6 L D 3.6 L RBC 2.57 L 3.24 L Hgb 6.8 L* 9.0 L Hct 20.6 L* 26.5 L MCV 80.2 81.8 MCH 26.5 27.8 MCHC 33.0 34.0 RDW 21.1 H 19.5 H Plt Count 105 L 106 L MPV 8.9 9.2 Gran % 58.0 57.9 Lymph % (Auto) 17.7 L 18.3 L [place] % (Auto) 17.1 H 13.3 H Eos % (Auto) 6.6 H 9.4 H Baso % (Auto) 0.6 1.1 Gran # 2.10 2.08 Lymph # 0.6 L 0.7 L [place] # 0.6 0.5 Eos # 0.2 0.3 Baso # 0.02 0.04 PT 15.2 H INR 1.41 H APTT 30.1 Sodium Potassium Chloride Carbon Dioxide Anion Gap BUN Creatinine Est GFR ( Amer) Est GFR (Non-Af Amer) Random Glucose Calcium Total Bilirubin AST ALT Alkaline Phosphatase Ammonia Total Protein Albumin Globulin Albumin/Globulin Ratio Procalcitonin 01/06/17 01/06/17 01/06/17 03:10 03:10 08:40 WBC 3.4 L RBC 3.50 Hgb 9.6 L Hct 29.0 L MCV 82.9 MCH 27.4 MCHC 33.1 RDW 19.6 H Plt Count 113 L MPV 9.9 Gran % 58.8 Lymph % (Auto) 20.0 L [place] % (Auto) 11.6 H Eos % (Auto) 8.4 H Baso % (Auto) 1.2 Gran # 1.97 Lymph # 0.7 L [place] # 0.4 Eos # 0.3 Baso # 0.04 PT INR APTT Sodium 141 Potassium 3.6 Chloride 117 H Carbon Dioxide 23 Anion Gap 5 L BUN 34 H Creatinine 0.9 Est GFR ( Amer) > 60 Est GFR (Non-Af Amer) > 60 Random Glucose 98 Calcium 7.0 L Total Bilirubin 3.1 H AST 89 H ALT 50 Alkaline Phosphatase 101 Ammonia 58 H Total Protein 5.0 L Albumin 2.0 L Globulin 3.0 Albumin/Globulin Ratio 0.7 L Procalcitonin Fingerstick Blood Sugar Results: 121 Results Reviewed to Date: Yes Review of Systems - Review of Systems All systems: reviewed and no additional remarkable complaints except - EENT Nose/Mouth/Throat: Dry Mouth Critical Care Progress Note - Prophylaxis GI Prophylaxis GI: PPI - Prophylaxis DVT Prophylaxis DVT: SCDs - Nutrition Nutrition: Nutrition Category Date Time Status NPO Diet [DIET] Diets 01/04/17 Dinner Ordered Assessment/Plan - Assessment and Plan (Free Text) Assessment: 51 year old male with a PMH of hepatitis C, previous GI bleeds with fundic varicies on EGD in 2013, and chronic alcoholism with cirrhosis who presented with coffee ground emesis and confusion, found to have severe anemia. Plan: Neurological Unchanged mental status, still somewhat confused Ammonia increased, after EGD will re-start lactulose Off precedex gtt since 5am PRN ativan in place No signs of DTs at this time Cont CIWA Cardiovascular Hemodynamically stable Cont NS @ 150 and monitoring vital signs Pulmonary Protecting airway, maintaining sats >92%, monitoring Renal/ Fluids / Electrolytes 5367.12/1599 BUN and Cr improved, cont IV hydration Monitoring I&O Still pseudohypocalcemia 2/2 hypoalbuminemia, Renetta Ca 8.6 GI GI followings, recs appreciated, no more coffee ground emesis, likely EGD today Educated family about need to follow up regularly with PCP about hepatitis C status as well as need for alcohol cessation Continue protonix and octreotide gtts, no repeat emesis but on PRN zofran Infectious disease Afebrile No leukocytosis BCxs negative x2 day 1 On ceftriaxone day 3, elevated lactate like from bleeding, no other signs of infection ID following, appreciate recs Hematology/Oncology CBCs q6h, had a decrease overnight with a need for another 2U PRBCs, total of 6 this admission Last CBC 9.6 stable from 9.0 Hemodynamically stable since admission Prophylaxis PPI gtt/SCDs Patient was seen and examined and case was discussed at length with attending physician. - Date & Time Date: 01/06/17 Time: 07:30 <Pablo Vallecillo - Last Filed: 01/06/17 16:43> CCU Objective - Vital Signs / Intake & Output Vital Signs (Last 4 hours): Vital Signs Pulse Resp BP Pulse Ox 01/06/17 14:03 95 01/06/17 13:45 138/85 01/06/17 13:39 64 24 01/06/17 13:30 62 14 131/64 01/06/17 13:15 69 13 142/77 01/06/17 13:00 70 15 147/84 01/06/17 12:45 72 13 133/82 Intake and Output (Last 8hrs): Intake & Output 01/06/17 01/06/17 01/06/17 06:59 14:59 22:59 Intake Total 3319 0 Output Total 550 Balance 3319 -550 Intake: IV 2344 0 Left Antecubital 0 Right Antecubital 300 Right Forearm 1800 Right Wrist 144 Oral 0 Blood Product 975 Red Blood Cells Cpd As1 325 Lr Unit [id number] Red Blood Cells Cpd As1 0 Lr Unit [id number] Output: Urine 550 Urine, Voided 550 Other: Voiding Method Incontinent # Bowel Movements 0 - Medications Active Medications: Active Medications Generic Name Dose Route Start Last Admin Trade Name Freq PRN Reason Stop Dose Admin Albumin Human 12.5 gm 01/06/17 16:00 Albumin Human 25% (12.5 Gm/50 Ml) IV 01/07/17 12:01 Q4 CESAR Ceftriaxone Sodium 1 gm in 100 mls @ 100 mls/hr 01/05/17 10:00 01/06/17 09:20 Rocephin 1 Gram Ivpb IVPB 100 mls/hr DAILY CESAR Administration Protocol Sodium Chloride 1,000 mls @ 150 mls/hr 01/04/17 20:15 01/06/17 09:17 Sodium Chloride 0.9% IV 150 mls/hr .Q6H40M CESAR Administration Dexmedetomidine HCl 400 mcg in 100 mls @ 3.969 mls/hr 01/05/17 13:47 05:07 Precedex 4 Mcg/Ml (100 Ml) IV 0 mcg/kg/hr .Q24H PRN 0 mls/hr Agitation Titration Protocol 0.2 MCG/KG/HR Lactulose 20 gm 01/06/17 18:00 Enulose PO BID CESAR Lorazepam 1 mg 01/04/17 16:35 01/06/17 01:55 Ativan IVP 1 mg Q2 PRN Administration Agitation Protocol Ondansetron HCl 4 mg 01/04/17 15:28 Zofran Inj IVP Q6H PRN Nausea/Vomiting Ondansetron HCl 4 mg 01/06/17 14:28 Zofran Inj IVP ONCE PRN Nausea/Vomiting Pantoprazole Sodium 40 mg 01/06/17 22:00 Protonix Inj IVP Q12 [facility] Pentoxifylline 400 mg 01/05/17 18:00 01/06/17 15:00 Pentoxil PO Not Given TID [facility] Rifaximin 550 mg 01/06/17 10:30 01/06/17 13:10 Xifaxan PO Not Given BID [facility] Protocol Sucralfate 1 gm 01/06/17 16:30 Carafate Oral Susp PO ACHS [facility] - Patient Studies Lab Studies: Microbiology Studies 01/04/17 17:30 MRSA Culture (Admit) - Final Naris MRSA NOT DETECTED Lab Studies 01/06/17 01/06/17 01/06/17 Range/Units 13:57 08:40 03:10 WBC 3.7 L 3.4 L (4.5-11.0) 10^3/ul RBC 3.55 3.50 (3.5-6.1) 10^6/uL Hgb 9.8 L 9.6 L (14.0-18.0) gm/dL Hct 29.6 L 29.0 L (42.0-52.0) % MCV 83.4 82.9 (80.0-105.0) fL MCH 27.6 27.4 (25.0-35.0) pg MCHC 33.1 33.1 (31.0-37.0) g/dl RDW 19.7 H 19.6 H (11.5-14.5) % Plt Count 109 L 113 L (120.0-450.0) 10^3/uL MPV 9.1 9.9 (7.0-11.0) fl Gran % 55.9 58.8 (50.0-68.0) % Lymph % (Auto) 21.2 L 20.0 L (22.0-35.0) % [place] % (Auto) 13.3 H 11.6 H (1.0-6.0) % Eos % (Auto) 8.2 H 8.4 H (1.5-5.0) % Baso % (Auto) 1.4 1.2 (0.0-3.0) % Gran # 2.06 1.97 (1.4-6.5) Lymph # 0.8 L 0.7 L (1.2-3.4) [place] # 0.5 0.4 (0.1-0.6) Eos # 0.3 0.3 (0.0-0.7) Baso # 0.05 0.04 (0.0-2.0) K/mm3 PT (9.9-11.8) Seconds INR (0.93-1.08) APTT (23.7-30.8) Seconds Sodium (132-148) mmol/L Potassium (3.6-5.0) mmol/L Chloride (98-107) mmol/L Carbon Dioxide (21-33) mmol/L Anion Gap (10-20) BUN (7-21) mg/dL Creatinine (0.5-1.4) mg/dL Est GFR ( Amer) Est GFR (Non-Af Amer) Random Glucose (70-110) mg/dL Calcium (8.4-10.5) mg/dL Total Bilirubin (0.2-1.3) mg/dL AST (15-59) U/L ALT (7-56) U/L Alkaline Phosphatase (38-133) U/L Ammonia 58 H (9-33) umol/L Total Protein (5.8-8.3) g/dL Albumin (3.0-4.8) g/dL Globulin gm/dL Albumin/Globulin Ratio (1.1-1.8) Procalcitonin (0.19-0.49) NG/ML 01/06/17 01/06/17 01/06/17 Range/Units 03:10 03:10 03:10 WBC 3.6 L (4.5-11.0) 10^3/ul RBC 3.24 L (3.5-6.1) 10^6/uL Hgb 9.0 L (14.0-18.0) gm/dL Hct 26.5 L (42.0-52.0) % MCV 81.8 (80.0-105.0) fL MCH 27.8 (25.0-35.0) pg MCHC 34.0 (31.0-37.0) g/dl RDW 19.5 H (11.5-14.5) % Plt Count 106 L (120.0-450.0) 10^3/uL MPV 9.2 (7.0-11.0) fl Gran % 57.9 (50.0-68.0) % Lymph % (Auto) 18.3 L (22.0-35.0) % [place] % (Auto) 13.3 H (1.0-6.0) % Eos % (Auto) 9.4 H (1.5-5.0) % Baso % (Auto) 1.1 (0.0-3.0) % Gran # 2.08 (1.4-6.5) Lymph # 0.7 L (1.2-3.4) [place] # 0.5 (0.1-0.6) Eos # 0.3 (0.0-0.7) Baso # 0.04 (0.0-2.0) K/mm3 PT 15.2 H (9.9-11.8) Seconds INR 1.41 H (0.93-1.08) APTT 30.1 (23.7-30.8) Seconds Sodium 141 (132-148) mmol/L Potassium 3.6 (3.6-5.0) mmol/L Chloride 117 H (98-107) mmol/L Carbon Dioxide 23 (21-33) mmol/L Anion Gap 5 L (10-20) BUN 34 H (7-21) mg/dL Creatinine 0.9 (0.5-1.4) mg/dL Est GFR ( Amer) > 60 Est GFR (Non-Af Amer) > 60 Random Glucose 98 (70-110) mg/dL Calcium 7.0 L (8.4-10.5) mg/dL Total Bilirubin 3.1 H (0.2-1.3) mg/dL AST 89 H (15-59) U/L ALT 50 (7-56) U/L Alkaline Phosphatase 101 (38-133) U/L Ammonia (9-33) umol/L Total Protein 5.0 L (5.8-8.3) g/dL Albumin 2.0 L (3.0-4.8) g/dL Globulin 3.0 gm/dL Albumin/Globulin Ratio 0.7 L (1.1-1.8) Procalcitonin (0.19-0.49) NG/ML 01/05/17 01/05/17 Range/Units 20:16 12:40 WBC 3.6 L D (4.5-11.0) 10^3/ul RBC 2.57 L (3.5-6.1) 10^6/uL Hgb 6.8 L* (14.0-18.0) gm/dL Hct 20.6 L* (42.0-52.0) % MCV 80.2 (80.0-105.0) fL MCH 26.5 (25.0-35.0) pg MCHC 33.0 (31.0-37.0) g/dl RDW 21.1 H (11.5-14.5) % Plt Count 105 L (120.0-450.0) 10^3/uL MPV 8.9 (7.0-11.0) fl Gran % 58.0 (50.0-68.0) % Lymph % (Auto) 17.7 L (22.0-35.0) % [place] % (Auto) 17.1 H (1.0-6.0) % Eos % (Auto) 6.6 H (1.5-5.0) % Baso % (Auto) 0.6 (0.0-3.0) % Gran # 2.10 (1.4-6.5) Lymph # 0.6 L (1.2-3.4) [place] # 0.6 (0.1-0.6) Eos # 0.2 (0.0-0.7) Baso # 0.02 (0.0-2.0) K/mm3 PT (9.9-11.8) Seconds INR (0.93-1.08) APTT (23.7-30.8) Seconds Sodium (132-148) mmol/L Potassium (3.6-5.0) mmol/L Chloride (98-107) mmol/L Carbon Dioxide (21-33) mmol/L Anion Gap (10-20) BUN (7-21) mg/dL Creatinine (0.5-1.4) mg/dL Est GFR ( Amer) Est GFR (Non-Af Amer) Random Glucose (70-110) mg/dL Calcium (8.4-10.5) mg/dL Total Bilirubin (0.2-1.3) mg/dL AST (15-59) U/L ALT (7-56) U/L Alkaline Phosphatase (38-133) U/L Ammonia (9-33) umol/L Total Protein (5.8-8.3) g/dL Albumin (3.0-4.8) g/dL Globulin gm/dL Albumin/Globulin Ratio (1.1-1.8) Procalcitonin 0.59 H (0.19-0.49) NG/ML Laboratory Results - last 24 hr 01/05/17 01/05/17 01/06/17 12:40 20:16 03:10 WBC 3.6 L D 3.6 L RBC 2.57 L 3.24 L Hgb 6.8 L* 9.0 L Hct 20.6 L* 26.5 L MCV 80.2 81.8 MCH 26.5 27.8 MCHC 33.0 34.0 RDW 21.1 H 19.5 H Plt Count 105 L 106 L MPV 8.9 9.2 Gran % 58.0 57.9 Lymph % (Auto) 17.7 L 18.3 L [place] % (Auto) 17.1 H 13.3 H Eos % (Auto) 6.6 H 9.4 H Baso % (Auto) 0.6 1.1 Gran # 2.10 2.08 Lymph # 0.6 L 0.7 L [place] # 0.6 0.5 Eos # 0.2 0.3 Baso # 0.02 0.04 PT INR APTT Sodium Potassium Chloride Carbon Dioxide Anion Gap BUN Creatinine Est GFR ( Amer) Est GFR (Non-Af Amer) Random Glucose Calcium Total Bilirubin AST ALT Alkaline Phosphatase Ammonia Total Protein Albumin Globulin Albumin/Globulin Ratio Procalcitonin 0.59 H 01/06/17 01/06/17 01/06/17 03:10 03:10 03:10 WBC RBC Hgb Hct MCV MCH MCHC RDW Plt Count MPV Gran % Lymph % (Auto) [place] % (Auto) Eos % (Auto) Baso % (Auto) Gran # Lymph # [place] # Eos # Baso # PT 15.2 H INR 1.41 H APTT 30.1 Sodium 141 Potassium 3.6 Chloride 117 H Carbon Dioxide 23 Anion Gap 5 L BUN 34 H Creatinine 0.9 Est GFR ( Amer) > 60 Est GFR (Non-Af Amer) > 60 Random Glucose 98 Calcium 7.0 L Total Bilirubin 3.1 H AST 89 H ALT 50 Alkaline Phosphatase 101 Ammonia 58 H Total Protein 5.0 L Albumin 2.0 L Globulin 3.0 Albumin/Globulin Ratio 0.7 L Procalcitonin 01/06/17 01/06/17 08:40 13:57 WBC 3.4 L 3.7 L RBC 3.50 3.55 Hgb 9.6 L 9.8 L Hct 29.0 L 29.6 L MCV 82.9 83.4 MCH 27.4 27.6 MCHC 33.1 33.1 RDW 19.6 H 19.7 H Plt Count 113 L 109 L MPV 9.9 9.1 Gran % 58.8 55.9 Lymph % (Auto) 20.0 L 21.2 L [place] % (Auto) 11.6 H 13.3 H Eos % (Auto) 8.4 H 8.2 H Baso % (Auto) 1.2 1.4 Gran # 1.97 2.06 Lymph # 0.7 L 0.8 L [place] # 0.4 0.5 Eos # 0.3 0.3 Baso # 0.04 0.05 PT INR APTT Sodium Potassium Chloride Carbon Dioxide Anion Gap BUN Creatinine Est GFR ( Amer) Est GFR (Non-Af Amer) Random Glucose Calcium Total Bilirubin AST ALT Alkaline Phosphatase Ammonia Total Protein Albumin Globulin Albumin/Globulin Ratio Procalcitonin Critical Care Progress Note - Nutrition Nutrition: Nutrition Category Date Time Status Liquid Diet [DIET] Diets 01/06/17 Lunch Ordered Addendum Addendum: 01/06/17 16:40 patient was seen, examined and discussed at bedside shoulder to shoulder with Dr. Jackson. his note reflects my exam, assessment and plan, excpt as below. meds/ Labs/ONE reviewed. 51 yo with hepc cirrhosis, admitted with hematemesis. Got 6 units of PRBC transfused with subsequent spontaneous hemostasis. EGD-->clean based ulcers, no variceal bleed. On octreotide, protonix. as per GI ok to advance diet to clear liquids and meds. ok to downgrade. Hb stable, no overt bleed. Hemodynamically stable. Ok to downgrade ccm time 40 min
--- NOTE | 2017-01-06 12:15 | RAD ---
HISTORY: sepsis COMPARISON: 01/04/2017 FINDINGS: LUNGS: No active pulmonary disease. PLEURA: No significant pleural effusion identified, no pneumothorax apparent. CARDIOVASCULAR: Mild vascular congestion. The heart is normal in size OSSEOUS STRUCTURES: No significant abnormalities. VISUALIZED UPPER ABDOMEN: Normal. OTHER FINDINGS: None. IMPRESSION: No active disease.
[2017-01-06] MEDS ORDERED: Propofol 10 mg/ml Inj (20 ML) ONE (13:57)
[2017-01-06 13:58] LABS: ADD MANUAL DIFF? NO
[2017-01-06 14:01] LABS: BASO # 0.05 K/mm3 (0.0-2.0); BASO % 1.4 % (0.0-3.0); EOS # 0.3 (0.0-0.7); EOS % 8.2 % (1.5-5.0); GRAN # 2.06 (1.4-6.5); GRAN % 55.9 % (50.0-68.0); HEMATOCRIT 29.6 % (42.0-52.0); LYMPH # 0.8 (1.2-3.4); LYMPH % 21.2 % (22.0-35.0); MEAN CELL VOLUME 83.4 fL (80.0-105.0); MEAN CORPUSCULAR HEMOGLOBIN 27.6 pg (25.0-35.0); MEAN CORPUSCULAR HGB CONC 33.1 g/dl (31.0-37.0); MEAN PLATELET VOLUME 9.1 fl (7.0-11.0); MONO # 0.5 (0.1-0.6); MONO % 13.3 % (1.0-6.0); PLATELET COUNT 109 10^3/uL (120.0-450.0); RED CELL DISTRIBUTION WIDTH 19.7 % (11.5-14.5); WHITE BLOOD COUNT 3.7 10^3/ul (4.5-11.0)
[2017-01-06] MEDS ORDERED: Sodium Chloride 0.9% 1,000 ML IV SCH (14:30)
--- NOTE | 2017-01-06 16:28 | CP.PCM.PN ---
<Destiny Peng - Last Filed: 01/06/17 16:25> Subjective - Date & Time of Evaluation Date of Evaluation: 01/06/17 Time of Evaluation: 16:25 - Subjective Subjective: HOSPITALISTS PROGRESS NOTE Pt is seen and examined at bedside. No acute events overnight. Patient is A& Ox2 but patient is answering questions and following commands. Patient denies having any Cp, SOB, abd pain, N/V. Patient has been afebrile overnight. Patient was started on precedex yesterday for withdrawal symptoms from ETOH. Patient is continued on protonix and octreotide drip. Patient was transfused a total of 6 PRBC units. Objective - Vital Signs/Intake and Output Vital Signs (last 24 hours): Temp Pulse Resp BP Pulse Ox 97.3 F L 64 24 138/85 95 01/06/17 08:00 01/06/17 13:39 01/06/17 13:39 01/06/17 13:45 01/06/17 14:03 Intake and Output: 01/06/17 01/06/17 06:59 18:59 Intake Total 3415 0 Output Total 550 Balance 3415 -550 - Medications Medications: Current Medications Albumin Human (Albumin Human 25% (12.5 Gm/50 Ml)) 12.5 gm IV Q4 [facility] Stop: 01/07/17 12:01 Ceftriaxone Sodium (Rocephin 1 Gram Ivpb) 1 gm in 100 mls @ 100 mls/hr IVPB DAILY [facility] PRN Reason: Protocol Last Admin: 01/06/17 09:20 Dose: 100 mls/hr Sodium Chloride (Sodium Chloride 0.9%) 1,000 mls @ 150 mls/hr IV .Q6H40M [facility] Last Admin: 01/06/17 09:17 Dose: 150 mls/hr Dexmedetomidine HCl (Precedex 4 Mcg/Ml (100 Ml)) 400 mcg in 100 mls @ 3.969 mls /hr IV .Q24H PRN; Protocol; 0.2 MCG/KG/HR PRN Reason: Agitation Last Titration: 01/06/17 05:07 Dose: 0 mcg/kg/hr, 0 mls/hr Sodium Chloride (Sodium Chloride 0.9%) 1,000 mls @ 75 mls/hr IV .[id number] [facility] Stop: 01/06/17 16:31 Last Admin: 01/06/17 15:04 Dose: 75 mls/hr Lactulose (Enulose) 20 gm PO BID [facility] Lorazepam (Ativan) 1 mg IVP Q2 PRN; Protocol PRN Reason: Agitation Last Admin: 01/06/17 01:55 Dose: 1 mg Ondansetron HCl (Zofran Inj) 4 mg IVP Q6H PRN PRN Reason: Nausea/Vomiting Ondansetron HCl (Zofran Inj) 4 mg IVP ONCE PRN PRN Reason: Nausea/Vomiting Pantoprazole Sodium (Protonix Inj) 40 mg IVP Q12 [facility] Pentoxifylline (Pentoxil) 400 mg PO TID [facility] Last Admin: 01/06/17 15:00 Dose: Not Given Rifaximin (Xifaxan) 550 mg PO BID [facility] PRN Reason: Protocol Last Admin: 01/06/17 13:10 Dose: Not Given Sucralfate (Carafate Oral Susp) 1 gm PO ACHS [facility] - Labs Labs: 01/06/17 13:57 01/06/17 03:10 PT 15.2 Seconds (9.9-11.8) H 01/06/17 03:10 INR 1.41 (0.93-1.08) H 01/06/17 03:10 APTT 30.1 Seconds (23.7-30.8) 01/06/17 03:10 - Constitutional Appears: Non-toxic, No Acute Distress - Head Exam Head Exam: ATRAUMATIC - Eye Exam Eye Exam: EOMI - ENT Exam ENT Exam: Mucous Membranes Moist - Respiratory Exam Respiratory Exam: Clear to Ausculation Bilateral, NORMAL BREATHING PATTERN. absent: Rales, Rhonchi, Wheezes - Cardiovascular Exam Cardiovascular Exam: REGULAR RHYTHM, +S1, +S2. absent: Gallop, Rubs, Murmur - GI/Abdominal Exam GI & Abdominal Exam: Soft, Normal Bowel Sounds. absent: Distended, Firm, Guarding, Rigid, Tenderness - Extremities Exam Extremities Exam: Pedal Edema (trace edema ). absent: Tenderness - Neurological Exam Neurological Exam: Alert, Awake, Oriented x3 - Psychiatric Exam Psychiatric exam: Normal Affect, Normal Mood - Skin Skin Exam: Dry, Intact, Normal Color, Warm Assessment and Plan - Assessment and Plan (Free Text) Assessment: 51yo M with PMHx of GI blee, Gastric ulcers, questionable esophageal varices, cirrhosis, Hepatitis C, ETOH abuse here for evaluation of Dizziness, generalized Fatigue, ETOH abuse. Possible GI bleed. Patient was transfused 6 units of PRBC total. Hgb this mornign was 9.6. Ammonia level is slightly elevated at 58 (yesterday 40). 1. Possible upper GI Bleed GI consult, Dr. Galaviz, appreciate recs. Pt taken for EGD today. Await results. Protonix drip Octreotide drip Aspiration precautions elevate head of bed Strict I&Os NPO except meds Hgb is stable currently 2. r/o Sepsis Afebrile and WBC count improving Procal is elevated Will start abx for now: Cirrhosis with possible GI bleed. Blood cultures and urine cultures are negative. Repeat CXR was also negative. ID is consulted Will continue rocephin 3. Probable early Hepatic Encephalopathy mild confusion, confabulation and poor insight Ammonia still elevated Lactulose 20 mg PO BID. Will increase lactulose and add rifaxamine MELDS score is 15 with mortality of 6.0% in 3 months Discriminant factor of 22.4 today. Continue pentoxyfylline 4. ETOH abuse CIWA protocol Started on precedex drip for withdrawal Ativan 1 mg po q2 prn seizure precautions 5. Lower Extremity Swelling consider secondary to advanced liver disease Doppler US is negative Will get echo 7. Hep C infection Will need outpatient follow up with GI specialist for treatment 6. PPx On Protonix drip Will hold heparin due to thrombocytopenia SCDs Discussed case with Dr. Santizo <Valentina Snatizo B - Last Filed: 01/07/17 18:19> Objective - Vital Signs/Intake and Output Vital Signs (last 24 hours): Temp Pulse Resp BP Pulse Ox 99.5 F 86 22 140/73 99 01/07/17 16:00 01/07/17 16:00 01/07/17 16:00 01/07/17 16:00 01/07/17 16:00 Intake and Output: 01/07/17 01/07/17 06:59 18:59 Intake Total 1950 Output Total 1650 Balance 300 - Medications Medications: Current Medications Chlordiazepoxide (Librium) 10 mg PO Q8 [facility] PRN Reason: Protocol Last Admin: 01/07/17 13:23 Dose: 10 mg Ceftriaxone Sodium (Rocephin 1 Gram Ivpb) 1 gm in 100 mls @ 100 mls/hr IVPB DAILY [facility] PRN Reason: Protocol Last Admin: 01/07/17 10:30 Dose: 100 mls/hr Sodium Chloride (Sodium Chloride 0.9%) 1,000 mls @ 150 mls/hr IV .Q6H40M [facility] Last Admin: 01/07/17 11:20 Dose: 150 mls/hr Dexmedetomidine HCl (Precedex 4 Mcg/Ml (100 Ml)) 400 mcg in 100 mls @ 3.969 mls /hr IV .Q24H PRN; Protocol; 0.2 MCG/KG/HR PRN Reason: Agitation Last Titration: 01/06/17 05:07 Dose: 0 mcg/kg/hr, 0 mls/hr Metronidazole (Flagyl) 500 mg in 100 mls @ 100 mls/hr IVPB Q8 [facility] PRN Reason: Protocol Last Admin: 01/07/17 16:28 Dose: 100 mls/hr Lactulose (Enulose) 20 gm PO BID [facility] Last Admin: 01/07/17 17:54 Dose: 20 gm Lorazepam (Ativan) 1 mg IVP Q2 PRN; Protocol PRN Reason: Agitation Last Admin: 01/06/17 01:55 Dose: 1 mg Ondansetron HCl (Zofran Inj) 4 mg IVP Q6H PRN PRN Reason: Nausea/Vomiting Ondansetron HCl (Zofran Inj) 4 mg IVP ONCE PRN PRN Reason: Nausea/Vomiting Pantoprazole Sodium (Protonix Inj) 40 mg IVP Q12 [facility] Last Admin: 01/07/17 10:30 Dose: 40 mg Pentoxifylline (Pentoxil) 400 mg PO TID [facility] Last Admin: 01/07/17 17:54 Dose: 400 mg Rifaximin (Xifaxan) 550 mg PO BID [facility] PRN Reason: Protocol Last Admin: 01/07/17 17:54 Dose: 550 mg Sucralfate (Carafate Oral Susp) 1 gm PO ACHS [facility] Last Admin: 01/07/17 16:27 Dose: 1 gm - Labs Labs: 01/07/17 06:30 01/07/17 06:30 PT 15.1 Seconds (9.9-11.8) H 01/07/17 06:30 INR 1.40 (0.93-1.08) H 01/07/17 06:30 APTT 29.6 Seconds (23.7-30.8) 01/07/17 06:30 Attending/Attestation - Attestation I have personally seen and examined this patient.: Yes I have fully participated in the care of the patient.: Yes I have reviewed all pertinent clinical information, including history, physical exam and plan: Yes Notes (Text): I have seen and examined patient with the resident in ICU. Agree with the above note with the following additions/ exceptions: Briefly this is 51 year old male with history of GI bleed, gastric ulcers, hepatic encephalopathy, cirrhosis, Hep C (known and untreated), noncompliance with follow up and alcohol abuse who was brought for evaluation of generalized weakness, hematemesis, hematochezia and found to have severe symptomatic anemia (4.8 on admission). He was given 6 units so far. Repeat Hb is 9.6. He is somnolent however oriented x2. Continue protonix, pentoxifylline and octreotide drip. Continue lactulose and lasix. Ammonia is still high. Add rifaxamin. Patient will go for EGD sometime today. He is afebrile. Blood cultures and urine cultures negative. Continue rocephin for now for prophylaxis. Will monitor for alcohol withdrawal. Continue precedex drip. LE ultrasound negative. Echo pending. Prognosis is poor secondary to continuous alcohol abuse and noncompliance with follow-up. Currently patient is not a candidate for liver transplant due to continuous alcohol abuse. Patient will be advised to follow-up with [facility] and [facility] hepatology/ hepatitis C clinic upon discharge. Dr Valentina Santizo
[2017-01-06] MEDS: Albumin Human 25% (12.5 gm/50 ml) IV SCH ×2 (16:51→21:15)
[2017-01-06] MEDS: Sucralfate 1 gm/10 ml Oral Susp UD PO SCH ×2 (16:52→21:14)
--- NOTE | 2017-01-06 18:10 | CP.PCM.PN ---
Subjective - Date & Time of Evaluation Date of Evaluation: 01/06/17 Time of Evaluation: 09:00 - Subjective Subjective: Comfortable in bed, not in distress, afebrile. No hematemesis since admission. For EGD today. Objective - Vital Signs/Intake and Output Vital Signs (last 24 hours): Temp Pulse Resp BP Pulse Ox 97.3 F L 64 24 138/85 95 01/06/17 08:00 01/06/17 13:39 01/06/17 13:39 01/06/17 13:45 01/06/17 14:03 Intake and Output: 01/06/17 01/06/17 06:59 18:59 Intake Total 3415 0 Output Total 550 Balance 3415 -550 - Medications Medications: Current Medications Albumin Human (Albumin Human 25% (12.5 Gm/50 Ml)) 12.5 gm IV Q4 [facility] Stop: 01/07/17 12:01 Last Admin: 01/06/17 16:51 Dose: 12.5 gm Chlordiazepoxide (Librium) 10 mg PO Q8 [facility] PRN Reason: Protocol Ceftriaxone Sodium (Rocephin 1 Gram Ivpb) 1 gm in 100 mls @ 100 mls/hr IVPB DAILY [facility] PRN Reason: Protocol Last Admin: 01/06/17 09:20 Dose: 100 mls/hr Sodium Chloride (Sodium Chloride 0.9%) 1,000 mls @ 150 mls/hr IV .Q6H40M [facility] Last Admin: 01/06/17 09:17 Dose: 150 mls/hr Dexmedetomidine HCl (Precedex 4 Mcg/Ml (100 Ml)) 400 mcg in 100 mls @ 3.969 mls /hr IV .Q24H PRN; Protocol; 0.2 MCG/KG/HR PRN Reason: Agitation Last Titration: 01/06/17 05:07 Dose: 0 mcg/kg/hr, 0 mls/hr Lactulose (Enulose) 20 gm PO BID [facility] Last Admin: 01/06/17 17:00 Dose: 20 gm Lorazepam (Ativan) 1 mg IVP Q2 PRN; Protocol PRN Reason: Agitation Last Admin: 01/06/17 01:55 Dose: 1 mg Ondansetron HCl (Zofran Inj) 4 mg IVP Q6H PRN PRN Reason: Nausea/Vomiting Ondansetron HCl (Zofran Inj) 4 mg IVP ONCE PRN PRN Reason: Nausea/Vomiting Pantoprazole Sodium (Protonix Inj) 40 mg IVP Q12 [facility] Pentoxifylline (Pentoxil) 400 mg PO TID [facility] Last Admin: 01/06/17 17:00 Dose: 400 mg Rifaximin (Xifaxan) 550 mg PO BID [facility] PRN Reason: Protocol Last Admin: 01/06/17 17:00 Dose: 550 mg Sucralfate (Carafate Oral Susp) 1 gm PO ACHS [facility] Last Admin: 01/06/17 16:52 Dose: 1 gm - Labs Labs: 01/06/17 13:57 01/06/17 03:10 PT 15.2 Seconds (9.9-11.8) H 01/06/17 03:10 INR 1.41 (0.93-1.08) H 01/06/17 03:10 APTT 30.1 Seconds (23.7-30.8) 01/06/17 03:10 - Constitutional Appears: Non-toxic, No Acute Distress - Head Exam Head Exam: NORMAL INSPECTION - ENT Exam ENT Exam: Mucous Membranes Moist - Neck Exam Neck Exam: absent: Lymphadenopathy, Meningismus - Respiratory Exam Respiratory Exam: Decreased Breath Sounds - Cardiovascular Exam Cardiovascular Exam: +S1, +S2 - GI/Abdominal Exam GI & Abdominal Exam: Soft. absent: Tenderness Assessment and Plan - Assessment and Plan (Free Text) Plan: Assessment Systemic Inflammatory Response Syndrome (tachypnea, tachycardia, leuekocytosis) , consider secondary to acute GI bleeding R/O esophageal variceal bleeding chronic hepatitis C (has not been treated) chronic ethanol abuse history of GI bleed in the past history of delirium tremens history of gastric ulcers Plan continue Rocephin for prophylaxis for GI bleeding until we can rule out esophageal varices -follow up EGD results Will continue to monitor clinically
[2017-01-07] MEDS: Albumin Human 25% (12.5 gm/50 ml) IV SCH ×4 (00:46→13:00)
[2017-01-07 01:22] LABS: ADD MANUAL DIFF? NO
[2017-01-07 01:32] LABS: BASO # 0.03 K/mm3 (0.0-2.0); BASO % 0.6 % (0.0-3.0); EOS # 0.3 (0.0-0.7); EOS % 5.5 % (1.5-5.0); GRAN # 3.49 (1.4-6.5); GRAN % 66.5 % (50.0-68.0); HEMATOCRIT 28.5 % (42.0-52.0); LYMPH # 0.9 (1.2-3.4); LYMPH % 16.4 % (22.0-35.0); MEAN CELL VOLUME 82.8 fL (80.0-105.0); MEAN CORPUSCULAR HEMOGLOBIN 27.9 pg (25.0-35.0); MEAN CORPUSCULAR HGB CONC 33.7 g/dl (31.0-37.0); MEAN PLATELET VOLUME 9.5 fl (7.0-11.0); MONO # 0.6 (0.1-0.6); PLATELET COUNT 147 10^3/uL (120.0-450.0); RED CELL DISTRIBUTION WIDTH 20.4 % (11.5-14.5); WHITE BLOOD COUNT 5.3 10^3/ul (4.5-11.0)
[2017-01-07] MEDS: Sodium Chloride 0.9% 1,000 ML IV SCH ×3 (03:18→19:47)
[2017-01-07 06:44] LABS: ADD MANUAL DIFF? NO
[2017-01-07 07:26] LABS: ALB/GLOB RATIO 0.8 (1.1-1.8); ALKALINE PHOSPHATASE 163 U/L (38-133); ALT/SGPT 51 U/L (7-56); AST/SGOT 78 U/L (15-59); BILIRUBIN,TOTAL 1.9 mg/dL (0.2-1.3); BLOOD UREA NITROGEN 16 mg/dL (7-21); CARBON DIOXIDE 22 mmol/L (21-33); CHLORIDE 117 mmol/L (98-107); GFR AFRICAN-AMERICAN > 60; GLUCOSE,RANDOM 87 mg/dL (70-110); POTASSIUM 3.4 mmol/L (3.6-5.0); SODIUM 141 mmol/L (132-148); TOTAL PROTEIN 5.1 g/dL (5.8-8.3)
[2017-01-07 07:42] LABS: INR 1.4 (0.93-1.08); PARTIAL THROMBOPLASTIN TIME 29.6 Seconds (23.7-30.8)
[2017-01-07] MEDS: Sucralfate 1 gm/10 ml Oral Susp UD PO SCH ×4 (07:45→22:10)
[2017-01-07] MEDS ORDERED: Potassium Chloride 20 mEq ER Tab PO ONE (08:16)
[2017-01-07 08:34] LABS: BASO # 0.04 K/mm3 (0.0-2.0); BASO % 0.8 % (0.0-3.0); EOS # 0.2 (0.0-0.7); EOS % 4.8 % (1.5-5.0); GRAN # 3.27 (1.4-6.5); GRAN % 68.3 % (50.0-68.0); HEMATOCRIT 27.8 % (42.0-52.0); LYMPH # 0.7 (1.2-3.4); LYMPH % 15.2 % (22.0-35.0); MEAN CORPUSCULAR HEMOGLOBIN 27.2 pg (25.0-35.0); MEAN CORPUSCULAR HGB CONC 32.7 g/dl (31.0-37.0); MEAN PLATELET VOLUME 9.4 fl (7.0-11.0); MONO # 0.5 (0.1-0.6); MONO % 10.9 % (1.0-6.0); PLATELET COUNT 140 10^3/uL (120.0-450.0); RED CELL DISTRIBUTION WIDTH 20.6 % (11.5-14.5); WHITE BLOOD COUNT 4.8 10^3/ul (4.5-11.0)
--- NOTE | 2017-01-07 10:07 | CT ---
CT abdomen and pelvis without oral or IV contrast Indication: Distension, jaundice Technique: Contiguous axial images of the abdomen and pelvis. Oral contrast was administered. No IV contrast given. Coronal and Sagittal reformats generated and reviewed. This CT exam was performed using 1 or more of the following dose reduction techniques: Automated exposure control, adjustment of the MAA and/or kV according to patient size, and/or use of iterative reconstruction technique. Radiation dose: Total exam DLP = 1031.78 mGy-cm. Comparison: CT abdomen pelvis without contrast performed 11/21/16 Findings: Small [id number]-right pleural effusions. Bibasilar atelectasis. No visible pneumothorax. Nodular hepatic contour. 15 mm hypodense lesion, right hepatic lobe (series 2, image 44). Splenomegaly. The noncontrast pancreas, kidneys, adrenal glands, and gallbladder appear unremarkable. No hydronephrosis or obstructing calculi. Moderate abdominal and pelvic ascites. The stomach is nondistended. Lack of oral contrast limits evaluation for bowel pathology. Thick-walled small bowel loops in the mid abdomen ; correlate for infectious or inflammatory etiologies. No evidence of bowel obstruction. There is no definite free air. The prostate gland measures approximately 3.3 x 3.9 cm. Irregular thick-walled and under distended urinary bladder. Degenerative changes of the spine. Interval development of fracture deformity, left pubic symphysis and left inferior pubic ramus. Left 8th, 9th, and 10th rib fracture deformities. Impression: Interval development of fracture deformity involving the left pubic symphysis and left inferior pubic ramus. Left 8th, 9th, and 10th rib fracture deformities. Thick-walled small bowel loops in the mid abdomen ; correlate for infectious or inflammatory etiologies. Moderate abdominal and pelvic ascites. Nodular hepatic contour, consistent with cirrhosis. 15 mm hypodense right hepatic lobe lesion cannot be further characterized in the absence of multi phase imaging. Splenomegaly. Additional findings as above.
--- NOTE | 2017-01-07 10:12 | CARD ---
APPROVED REPORT EXAM: Two-dimensional and M-mode echocardiogram with Doppler and color Doppler. INDICATION LVFX 2D DIMENSIONS Left Atrium (2D)6.2 (1.6-4.0cm)IVSd0.8 (0.7-1.1cm) LVDd5.7 (3.9-5.9cm)PWd1.2 (0.7-1.1cm) LVDs4.3 (2.5-4.0cm)FS (%) 23.9 % LVEF (%)47.1 (>50%) M-Mode DIMENSIONS Aortic Root3.10 (2.2-3.7cm)Aortic Cusp Exc.1.70 (1.5-2.0cm) Aortic Valve AoV Peak Xnxpcqxt833.0cm/Renetta Peak GR.17mmHg Mitral Valve MV E Lvzgsido71.1cm/sMV A Kvsogjbn40.8cm/sE/A ratio0.9 TDI Lateral E' Peak V12.60cm/sMedial E' Peak V8.09cm/sE/Lateral E'7.3 E/Medial E'11.4 Pulmonary Valve PV Peak Vqkqeedj34.5cm/sPV Peak Grad.3mmHg Tricuspid Valve TR Peak [id number]/sRAP [id number] Peak Gr.57mmHg [id number] LEFT VENTRICLE The Left Ventricle is borderline dilated. There is borderline concentric left ventricular hypertrophy. The systolic function is mildly impaired.EF-45% There is mild hypokinesis in the basal inferolateral wall. Transmitral Doppler flow pattern is Grade III-reversible restrictive diastolic dysfunction. No left ventricle thrombus noted on this study. There is no ventricular septal defect visualized. There is no left ventricular aneurysm. There is no mass noted in the left ventricle. RIGHT VENTRICLE The right ventricle is mildly dilated. There is normal right ventricular wall thickness. Systolic function is mildly reduced. ATRIA The left atrium is moderately dilated. The right atrium is mildly dilated. The interatrial septum is intact with no evidence for an atrial septal defect. AORTIC VALVE The aortic valve is thickened but opens well. There is trace to mild aortic regurgitation. There is no aortic valvular stenosis. There is no aortic valvular vegetation. MITRAL VALVE The mitral valve is thickened but opens well. Mitral regurgitation is moderate. There is no mitral valve stenosis. There is no evidence of mitral valve prolapse. TRICUSPID VALVE The tricuspid valve leaflets are thickened , but open well. There is moderate tricuspid regurgitation.RVSP-67 mmof Hg. There is moderate pulmonary hypertension. There is no tricuspid valve stenosis. There is no tricuspid valve prolapse or vegetation. PULMONIC VALVE The pulmonary valve is normal in structure. GREAT VESSELS The aortic root is normal in size. The ascending aorta is normal in size. The pulmonary artery is normal. The IVC was not visualized. PERICARDIAL EFFUSION There is no pleural effusion. There is no pericardial effusion. <Conclusion> The Left Ventricle is borderline dilated. There is borderline concentric left ventricular hypertrophy. There is trace to mild aortic regurgitation. Mitral regurgitation is moderate. There is moderate tricuspid regurgitation.RVSP-67 mmof Hg. No Vegetation or thrombus noted. There is moderate pulmonary hypertension.
[2017-01-07] MEDS: cefTRIAXone 1 gm 1 GM/100 ML BAG IVPB SCH (10:30)
--- NOTE | 2017-01-07 15:34 | CP.PCM.PN ---
<Destiny Peng - Last Filed: 01/07/17 15:31> Subjective - Date & Time of Evaluation Date of Evaluation: 01/07/17 Time of Evaluation: 15:34 - Subjective Subjective: HOSPITALISTS PROGRESS NOTE Pt is seen and examined at bedside. No acute events overnight. Patient had EGD done yesterday and tolerated the procedure well. Patient is A&Ox 3 today. He denies having any Cp, SOB, abd pain, N/V/D/C, dysuria. Patient is had 4 BM overnight. A febrile overnight. Objective - Vital Signs/Intake and Output Vital Signs (last 24 hours): Temp Pulse Resp BP Pulse Ox 98.7 F 89 19 181/96 H 100 01/07/17 12:00 01/07/17 12:31 01/07/17 12:31 01/07/17 12:31 01/07/17 12:31 Intake and Output: 01/07/17 01/07/17 06:59 18:59 Intake Total 1950 Output Total 1650 Balance 300 - Medications Medications: Current Medications Chlordiazepoxide (Librium) 10 mg PO Q8 [facility] PRN Reason: Protocol Last Admin: 01/07/17 13:23 Dose: 10 mg Ceftriaxone Sodium (Rocephin 1 Gram Ivpb) 1 gm in 100 mls @ 100 mls/hr IVPB DAILY [facility] PRN Reason: Protocol Last Admin: 01/07/17 10:30 Dose: 100 mls/hr Sodium Chloride (Sodium Chloride 0.9%) 1,000 mls @ 150 mls/hr IV .Q6H40M [facility] Last Admin: 01/07/17 11:20 Dose: 150 mls/hr Dexmedetomidine HCl (Precedex 4 Mcg/Ml (100 Ml)) 400 mcg in 100 mls @ 3.969 mls /hr IV .Q24H PRN; Protocol; 0.2 MCG/KG/HR PRN Reason: Agitation Last Titration: 01/06/17 05:07 Dose: 0 mcg/kg/hr, 0 mls/hr Lactulose (Enulose) 20 gm PO BID [facility] Last Admin: 01/07/17 10:29 Dose: 20 gm Lorazepam (Ativan) 1 mg IVP Q2 PRN; Protocol PRN Reason: Agitation Last Admin: 01/06/17 01:55 Dose: 1 mg Ondansetron HCl (Zofran Inj) 4 mg IVP Q6H PRN PRN Reason: Nausea/Vomiting Ondansetron HCl (Zofran Inj) 4 mg IVP ONCE PRN PRN Reason: Nausea/Vomiting Pantoprazole Sodium (Protonix Inj) 40 mg IVP Q12 [facility] Last Admin: 01/07/17 10:30 Dose: 40 mg Pentoxifylline (Pentoxil) 400 mg PO TID [facility] Last Admin: 01/07/17 13:23 Dose: 400 mg Rifaximin (Xifaxan) 550 mg PO BID [facility] PRN Reason: Protocol Last Admin: 01/07/17 10:30 Dose: 550 mg Sucralfate (Carafate Oral Susp) 1 gm PO ACHS [facility] Last Admin: 01/07/17 11:22 Dose: 1 gm - Labs Labs: 01/07/17 06:30 01/07/17 06:30 PT 15.1 Seconds (9.9-11.8) H 01/07/17 06:30 INR 1.40 (0.93-1.08) H 01/07/17 06:30 APTT 29.6 Seconds (23.7-30.8) 01/07/17 06:30 - Constitutional Appears: Non-toxic, No Acute Distress - Head Exam Head Exam: ATRAUMATIC - ENT Exam ENT Exam: Mucous Membranes Moist - Respiratory Exam Respiratory Exam: Clear to Ausculation Bilateral, NORMAL BREATHING PATTERN. absent: Rales, Rhonchi, Wheezes - Cardiovascular Exam Cardiovascular Exam: REGULAR RHYTHM, +S1, +S2. absent: Gallop, Rubs, Murmur - GI/Abdominal Exam GI & Abdominal Exam: Soft, Normal Bowel Sounds. absent: Distended, Firm, Guarding, Rigid, Tenderness - Extremities Exam Extremities Exam: absent: Pedal Edema, Tenderness - Neurological Exam Neurological Exam: Alert, Awake, Oriented x3 - Psychiatric Exam Psychiatric exam: Normal Affect, Normal Mood - Skin Skin Exam: Dry, Intact, Normal Color, Warm Assessment and Plan - Assessment and Plan (Free Text) Assessment: 51yo M with PMHx of GI blee, Gastric ulcers, questionable esophageal varices, cirrhosis, Hepatitis C, ETOH abuse here for evaluation of Dizziness, generalized Fatigue, ETOH abuse. Patient was transfused 6 units of PRBC total. EGD done yesterday showed esophagitis in distal esophagus, non-bleeding gastric ulcer 25 mm in antrum. 1. Gastric ulcer GI consult, Dr. Galaviz, appreciate recs. Octreotide and protonix drip is discontinued. Patient is on protonix 40 gm IVP BID Aspiration precautions elevate head of bed Strict I&Os Hgb is stable currently 2. r/o Sepsis Afebrile and WBC count improving Procal is elevated Continue rocephin Blood cultures and urine cultures are negative. Repeat CXR was also negative. ID is consulted Ct of abd/ pelvis shows interval development of fx deformity involving left pubic symphysis and left inferior pubic ramus, left 8th, 9th and 10th rib fx; thick-walled small bowel loops in mid abdomen; mod abd & pelvic ascites. 3. Probable early Hepatic Encephalopathy Ammonia trending down Lactulose 20 mg PO BID, rifaxamine Continue pentoxyfylline 4. ETOH abuse CIWA protocol Off precedex drip since yesterday Librium 10 mg q8 jessica Ativan 1 mg po q2 prn seizure precautions 5. Lower Extremity Swelling consider secondary to advanced liver disease Doppler US is negative Echo shows EF of 47% LV borderline concentric LVH, mod MR and TR, no vegetations , mod pulm HTN 7. Hep C infection Will need outpatient follow up with GI specialist for treatment 8. Pelvic fracture - Will consult ortho for pelvic fracture 9. Rib fractures - Incentive spirometer PPx Protnix IV BID Will hold heparin due to thrombocytopenia SCDs Discussed case with Dr. Santizo <Valentina Santizo - Last Filed: 01/08/17 16:26> Objective - Vital Signs/Intake and Output Vital Signs (last 24 hours): Temp Pulse Resp BP Pulse Ox 99.5 F 86 22 140/73 99 01/07/17 16:00 01/07/17 16:00 01/07/17 16:00 01/07/17 16:00 01/07/17 16:00 Intake and Output: 01/07/17 01/07/17 06:59 18:59 Intake Total 1950 Output Total 1650 Balance 300 - Medications Medications: Current Medications Chlordiazepoxide (Librium) 10 mg PO Q8 [facility]ESS[facility] PRN Reason: Protocol Last Admin: 01/07/17 13:23 Dose: 10 mg Ceftriaxone Sodium (Rocephin 1 Gram Ivpb) 1 gm in 100 mls @ 100 mls/hr IVPB DAILY [facility] PRN Reason: Protocol Last Admin: 01/07/17 10:30 Dose: 100 mls/hr Sodium Chloride (Sodium Chloride 0.9%) 1,000 mls @ 150 mls/hr IV .Q6H40M [facility] Last Admin: 01/07/17 11:20 Dose: 150 mls/hr Dexmedetomidine HCl (Precedex 4 Mcg/Ml (100 Ml)) 400 mcg in 100 mls @ 3.969 mls /hr IV .Q24H PRN; Protocol; 0.2 MCG/KG/HR PRN Reason: Agitation Last Titration: 01/06/17 05:07 Dose: 0 mcg/kg/hr, 0 mls/hr Metronidazole (Flagyl) 500 mg in 100 mls @ 100 mls/hr IVPB Q8 [facility] PRN Reason: Protocol Last Admin: 01/07/17 16:28 Dose: 100 mls/hr Lactulose (Enulose) 20 gm PO BID [facility] Last Admin: 01/07/17 17:54 Dose: 20 gm Lorazepam (Ativan) 1 mg IVP Q2 PRN; Protocol PRN Reason: Agitation Last Admin: 01/06/17 01:55 Dose: 1 mg Ondansetron HCl (Zofran Inj) 4 mg IVP Q6H PRN PRN Reason: Nausea/Vomiting Ondansetron HCl (Zofran Inj) 4 mg IVP ONCE PRN PRN Reason: Nausea/Vomiting Pantoprazole Sodium (Protonix Inj) 40 mg IVP Q12 [facility] Last Admin: 01/07/17 10:30 Dose: 40 mg Pentoxifylline (Pentoxil) 400 mg PO TID [facility] Last Admin: 01/07/17 17:54 Dose: 400 mg Rifaximin (Xifaxan) 550 mg PO BID [facility] PRN Reason: Protocol Last Admin: 01/07/17 17:54 Dose: 550 mg Sucralfate (Carafate Oral Susp) 1 gm PO ACHS [facility] Last Admin: 01/07/17 16:27 Dose: 1 gm - Labs Labs: 01/07/17 06:30 01/07/17 06:30 PT 15.1 Seconds (9.9-11.8) H 01/07/17 06:30 INR 1.40 (0.93-1.08) H 01/07/17 06:30 APTT 29.6 Seconds (23.7-30.8) 01/07/17 06:30 Attending/Attestation - Attestation I have personally seen and examined this patient.: Yes I have fully participated in the care of the patient.: Yes I have reviewed all pertinent clinical information, including history, physical exam and plan: Yes Notes (Text): I have seen and examined patient with the resident in ICU. Agree with the above note with the following additions/ exceptions: Briefly this is 51 year old male with history of GI bleed, gastric ulcers, hepatic encephalopathy, cirrhosis, Hep C (known and untreated), noncompliance with follow up and alcohol abuse who was brought for evaluation of generalized weakness, hematemesis, hematochezia and found to have severe symptomatic anemia (4.8 on admission). He was given 6 units so far. Repeat Hb is stable. He is oriented x3. EGD was done today which revealed esophagitis in distal esophagus and non bleeding 25 mm gastric ulcer in antrum. DC protonix trip and octreotide drip. Continue lactulose, rifaxamin , pentoxifylline and lasix. He is afebrile. Blood cultures and urine cultures negative. Continue rocephin for now for prophylaxis. Will monitor for alcohol withdrawal. LE ultrasound negative. Echo revealed EF of 47%, LVH, moderate Pulmonary hypertension. CT abdomen/ pelvis revealed Fracture deformity at left pubic symphysis and left inferior ramus and multiple rib fractures. Currently patient is not a candidate for liver transplant due to continuous alcohol abuse. Patient will be advised to follow-up with [facility] clinic and [facility] hepatology/ hepatitis C clinic upon discharge. Dr Valentina Santizo
[2017-01-07] MEDS: metroNIDAZOLE IV 500 mg/100 ml 500 MG/100 ML BAG IVPB SCH ×2 (16:28→23:36)
--- NOTE | 2017-01-07 18:25 | CP.PCM.PN ---
Subjective - Date & Time of Evaluation Date of Evaluation: 01/07/17 Time of Evaluation: 08:50 - Subjective Subjective: Comfortable, afebrile, not in distress. Objective - Vital Signs/Intake and Output Vital Signs (last 24 hours): Temp Pulse Resp BP Pulse Ox 99.5 F 86 22 140/73 99 01/07/17 16:00 01/07/17 16:00 01/07/17 16:00 01/07/17 16:00 01/07/17 16:00 Intake and Output: 01/07/17 01/07/17 06:59 18:59 Intake Total 1950 Output Total 1650 Balance 300 - Medications Medications: Current Medications Chlordiazepoxide (Librium) 10 mg PO Q8 [facility] PRN Reason: Protocol Last Admin: 01/07/17 13:23 Dose: 10 mg Ceftriaxone Sodium (Rocephin 1 Gram Ivpb) 1 gm in 100 mls @ 100 mls/hr IVPB DAILY [facility] PRN Reason: Protocol Last Admin: 01/07/17 10:30 Dose: 100 mls/hr Sodium Chloride (Sodium Chloride 0.9%) 1,000 mls @ 150 mls/hr IV .Q6H40M [facility] Last Admin: 01/07/17 11:20 Dose: 150 mls/hr Dexmedetomidine HCl (Precedex 4 Mcg/Ml (100 Ml)) 400 mcg in 100 mls @ 3.969 mls /hr IV .Q24H PRN; Protocol; 0.2 MCG/KG/HR PRN Reason: Agitation Last Titration: 01/06/17 05:07 Dose: 0 mcg/kg/hr, 0 mls/hr Metronidazole (Flagyl) 500 mg in 100 mls @ 100 mls/hr IVPB Q8 [facility] PRN Reason: Protocol Last Admin: 01/07/17 16:28 Dose: 100 mls/hr Lactulose (Enulose) 20 gm PO BID [facility] Last Admin: 01/07/17 17:54 Dose: 20 gm Lorazepam (Ativan) 1 mg IVP Q2 PRN; Protocol PRN Reason: Agitation Last Admin: 01/06/17 01:55 Dose: 1 mg Ondansetron HCl (Zofran Inj) 4 mg IVP Q6H PRN PRN Reason: Nausea/Vomiting Ondansetron HCl (Zofran Inj) 4 mg IVP ONCE PRN PRN Reason: Nausea/Vomiting Pantoprazole Sodium (Protonix Inj) 40 mg IVP Q12 [facility] Last Admin: 01/07/17 10:30 Dose: 40 mg Pentoxifylline (Pentoxil) 400 mg PO TID [facility] Last Admin: 01/07/17 17:54 Dose: 400 mg Rifaximin (Xifaxan) 550 mg PO BID [facility] PRN Reason: Protocol Last Admin: 01/07/17 17:54 Dose: 550 mg Sucralfate (Carafate Oral Susp) 1 gm PO ACHS [facility] Last Admin: 01/07/17 16:27 Dose: 1 gm - Labs Labs: 01/07/17 06:30 01/07/17 06:30 PT 15.1 Seconds (9.9-11.8) H 01/07/17 06:30 INR 1.40 (0.93-1.08) H 01/07/17 06:30 APTT 29.6 Seconds (23.7-30.8) 01/07/17 06:30 - Constitutional Appears: Non-toxic, No Acute Distress - Head Exam Head Exam: NORMAL INSPECTION - Neck Exam Neck Exam: absent: Lymphadenopathy, Meningismus - Respiratory Exam Respiratory Exam: Decreased Breath Sounds - Cardiovascular Exam Cardiovascular Exam: +S1, +S2 - GI/Abdominal Exam GI & Abdominal Exam: Soft. absent: Tenderness Assessment and Plan - Assessment and Plan (Free Text) Plan: Assessment Systemic Inflammatory Response Syndrome (tachypnea, tachycardia, leuekocytosis) , consider secondary to acute GI bleeding R/O esophageal variceal bleeding chronic hepatitis C (has not been treated) chronic ethanol abuse history of GI bleed in the past history of delirium tremens history of gastric ulcers Plan continue Rocephin for prophylaxis for GI bleeding until we can rule out esophageal varices -follow up EGD results Will continue to monitor clinically
--- NOTE | 2017-01-07 18:51 | PN ---
DATE: 01/07/2017 SUBJECTIVE: The patient is lying in bed, comfortable. He denies any further melena, hematemesis. H e denies rectal bleeding. PHYSICAL EXAMINATION: VITAL SIGNS: Reveal temperature of 99.5, blood pressure 140/73, heart rate of 86. ABDOMEN: Softly protuberant, nontender, no mass. EXTREMITIES: Show no edema. LABORATORY DATA: Reveal hemoglobin 9.1, platelet count 140,000. Potassium 3.4. IMPRESSION: A 51-year-old male admitted to the hospital with upper gastrointestinal bleeding, severe anemia with hemoglobin of 6 gram range, alcoholism, history of cirrhosis of the liver secondary to h epatitis C and alcoholism with a large gastric ulcer on endoscopy. The patient's blood count has rem ained stable. RECOMMENDATIONS: 1. Continue IV Protonix. 2. Continue Carafate suspension. 3. Advance diet as tolerated. 4. Follow serial hematocrits. Jf Galaviz MD cc: 79 TT: 01/07/2017 18:50:07 Confirmation # [id number] Dictation # [id number] ln
[2017-01-08] MEDS: metroNIDAZOLE IV 500 mg/100 ml 500 MG/100 ML BAG IVPB SCH (05:40)
[2017-01-08 07:34] LABS: ADD MANUAL DIFF? NO
[2017-01-08 07:42] LABS: BASO # 0.06 K/mm3 (0.0-2.0); BASO % 0.8 % (0.0-3.0); EOS # 0.2 (0.0-0.7); EOS % 2.2 % (1.5-5.0); GRAN # 5.86 (1.4-6.5); GRAN % 75.2 % (50.0-68.0); HEMATOCRIT 29.6 % (42.0-52.0); LYMPH % 12.2 % (22.0-35.0); MEAN CELL VOLUME 83.4 fL (80.0-105.0); MEAN CORPUSCULAR HEMOGLOBIN 27.3 pg (25.0-35.0); MEAN CORPUSCULAR HGB CONC 32.8 g/dl (31.0-37.0); MEAN PLATELET VOLUME 9.5 fl (7.0-11.0); MONO # 0.8 (0.1-0.6); MONO % 9.6 % (1.0-6.0); PLATELET COUNT 163 10^3/uL (120.0-450.0); RED CELL DISTRIBUTION WIDTH 20.6 % (11.5-14.5); WHITE BLOOD COUNT 7.8 10^3/ul (4.5-11.0)
[2017-01-08 07:53] LABS: INR 1.44 (0.93-1.08); PARTIAL THROMBOPLASTIN TIME 29.4 Seconds (23.7-30.8)
[2017-01-08 08:13] LABS: ALKALINE PHOSPHATASE 176 U/L (38-133); ALT/SGPT 54 U/L (7-56); AST/SGOT 61 U/L (15-59); BILIRUBIN,TOTAL 1.6 mg/dL (0.2-1.3); BLOOD UREA NITROGEN 8 mg/dL (7-21); CALCIUM 7.1 mg/dL (8.4-10.5); CARBON DIOXIDE 20 mmol/L (21-33); CHLORIDE 117 mmol/L (95-110); GFR AFRICAN-AMERICAN > 60; GLUCOSE,RANDOM 90 mg/dL (70-110); POTASSIUM 3.2 mmol/L (3.6-5.0); SODIUM 141 mmol/L (132-148); TOTAL PROTEIN 5.2 g/dL (5.8-8.3)
[2017-01-08 08:19] LABS: ALB/GLOB RATIO 0.9 (1.1-1.8)
[2017-01-08] MEDS: Sucralfate 1 gm/10 ml Oral Susp UD PO SCH ×4 (08:30→22:28)
[2017-01-08] MEDS ORDERED: Potassium Chloride 20 mEq ER Tab PO ONE (09:03)
[2017-01-08] MEDS: cefTRIAXone 1 gm 1 GM/100 ML BAG IVPB SCH (09:38)
[2017-01-08] MEDS: Sodium Chloride 0.9% 1,000 ML IV SCH ×2 (09:38→22:31)
[2017-01-08 09:46] VITALS: O2SAT 96
[2017-01-08 10:26] LABS: MAGNESIUM 2.1 mg/dL (1.7-2.2); PHOSPHOROUS 2.7 mg/dL (2.5-4.5)
--- NOTE | 2017-01-08 10:28 | PN ---
DATE: 01/08/2017 SUBJECTIVE: The patient is lying in bed, comfortable. He has not had any further evidence of GI ble eding. He is asking for food. PHYSICAL EXAMINATION: VITAL SIGNS: Reveal temperature of 98.6, blood pressure 135/79, heart rate 93. ABDOMEN: Softly distended, nontender. LABORATORY DATA: Hemoglobin is stable at 9.7. Potassium is 3.2. IMPRESSION: A 51-year-old male with severe anemia, alcoholism, upper gastrointestinal bleed with a l arge gastric ulcer on endoscopy. RECOMMENDATIONS: The patient can be discharged home with outpatient followup. He will need a repeat endoscopy in approximately 8 weeks to check for healing of the large gastric ulcer. I will follow u p on the pathology of the biopsy of the gastric ulcer. The patient will also need an elective colono scopy as an outpatient. Jf Galaviz MD cc: 79 TT: 01/08/2017 10:27:11 Confirmation # [id number] Dictation # [id number] mn
--- NOTE | 2017-01-08 15:11 | CP.PCM.PN ---
<Destiny Peng - Last Filed: 01/08/17 15:18> Subjective - Date & Time of Evaluation Date of Evaluation: 01/08/17 Time of Evaluation: 15:08 - Subjective Subjective: HOSPITALISTS PROGRESS NOTE Pt is seen and examined at bedside. No acute events overnight. patient had one episode of vomiting overnight that was non-bloody. After revieiwing with nurse and looking over chart, patient had about 3 BMs in past 24 hours. Patient denies having any CP, SOB, tremors, hallucinations. Patient does complain of abd pain. Patient is seen walking around hallway with physical therapist. Objective - Vital Signs/Intake and Output Vital Signs (last 24 hours): Temp Pulse Resp BP Pulse Ox 98.6 F 93 H 22 135/79 96 01/08/17 08:00 01/08/17 08:00 01/08/17 08:00 01/08/17 08:00 01/08/17 08:00 Intake and Output: 01/08/17 01/08/17 06:59 18:59 Intake Total 240 Balance 240 - Medications Medications: Current Medications Chlordiazepoxide (Librium) 10 mg PO Q12 [facility] PRN Reason: Protocol Last Admin: 01/08/17 09:37 Dose: 10 mg Sodium Chloride (Sodium Chloride 0.9%) 1,000 mls @ 150 mls/hr IV .Q6H40M [facility] Last Admin: 01/08/17 09:38 Dose: 150 mls/hr Lactulose (Enulose) 20 gm PO BID [facility] Last Admin: 01/08/17 09:36 Dose: 20 gm Lorazepam (Ativan) 1 mg IVP Q2 PRN; Protocol PRN Reason: Agitation Last Admin: 01/07/17 23:56 Dose: 1 mg Ondansetron HCl (Zofran Inj) 4 mg IVP Q6H PRN PRN Reason: Nausea/Vomiting Ondansetron HCl (Zofran Inj) 4 mg IVP ONCE PRN PRN Reason: Nausea/Vomiting Pantoprazole Sodium (Protonix Inj) 40 mg IVP Q12 [facility] Last Admin: 01/08/17 09:36 Dose: 40 mg Pentoxifylline (Pentoxil) 400 mg PO TID [facility] Last Admin: 01/08/17 10:23 Dose: 400 mg Rifaximin (Xifaxan) 550 mg PO BID [facility] PRN Reason: Protocol Last Admin: 01/08/17 09:37 Dose: 550 mg Sucralfate (Carafate Oral Susp) 1 gm PO ACHS [facility] Last Admin: 01/08/17 08:30 Dose: 1 gm - Labs Labs: 01/08/17 07:30 01/08/17 07:30 PT 15.5 Seconds (9.9-11.8) H 01/08/17 07:30 INR 1.44 (0.93-1.08) H 01/08/17 07:30 APTT 29.4 Seconds (23.7-30.8) 01/08/17 07:30 - Constitutional Appears: Non-toxic, No Acute Distress - Head Exam Head Exam: ATRAUMATIC - Eye Exam Eye Exam: EOMI - ENT Exam ENT Exam: Mucous Membranes Moist - Respiratory Exam Respiratory Exam: Clear to Ausculation Bilateral. absent: Rales, Rhonchi, Wheezes - Cardiovascular Exam Cardiovascular Exam: REGULAR RHYTHM, +S1, +S2. absent: Gallop, Rubs - GI/Abdominal Exam GI & Abdominal Exam: Distended, Soft, Normal Bowel Sounds. absent: Firm, Guarding, Rigid, Tenderness - Extremities Exam Extremities Exam: absent: Pedal Edema, Tenderness - Neurological Exam Neurological Exam: Alert, Awake, Oriented x3 - Psychiatric Exam Psychiatric exam: Normal Affect, Normal Mood - Skin Skin Exam: Dry, Intact, Normal Color, Warm Assessment and Plan - Assessment and Plan (Free Text) Assessment: 51yo M with PMHx of GI bleed, Gastric ulcers, questionable esophageal varices, cirrhosis, Hepatitis C, ETOH abuse here for evaluation of Dizziness, generalized Fatigue, ETOH abuse. Patient was transfused 6 units of PRBC total. EGD done yesterday showed esophagitis in distal esophagus, non-bleeding gastric ulcer 25 mm in antrum. 1. Gastric ulcer GI consult, Dr. Galaviz, appreciate recs. Patient is on protonix 40 gm IVP BID Aspiration precautions elevate head of bed Strict I&Os Hgb is stable currently Antibiotics have been d/m[place]. Will advance diet to solids and see if tolerating 2. r/o Sepsis Improved Blood cultures and urine cultures are negative. Repeat CXR was also negative. ID is consulted Ct of abd/ pelvis shows interval development of fx deformity involving left pubic symphysis and left inferior pubic ramus, left 8th, 9th and 10th rib fx; thick-walled small bowel loops in mid abdomen; mod abd & pelvic ascites. 3. Probable early Hepatic Encephalopathy Improving Ammonia trending down Lactulose 20 mg PO BID, rifaxamine Continue pentoxyfylline 4. ETOH abuse CIWA protocol Off precedex drip since yesterday Librium 10 mg q12 jessica Ativan 1 mg po q2 prn seizure precautions 5. Lower Extremity Swelling consider secondary to advanced liver disease Doppler US is negative Echo shows EF of 47% LV borderline concentric LVH, mod MR and TR, no vegetations , mod pulm HTN 7. Hep C infection Will need outpatient follow up with GI specialist for treatment 8. Pelvic fracture - Will consult ortho for pelvic fracture. Pending recs 9. Rib fractures - Incentive spirometer PPx Protnix IV BID Will hold heparin due to thrombocytopenia SCDs Discussed case with Dr. Santizo <Valentina Santizo - Last Filed: 01/08/17 16:37> Objective - Vital Signs/Intake and Output Vital Signs (last 24 hours): Temp Pulse Resp BP Pulse Ox 98.6 F 93 H 22 135/79 96 01/08/17 08:00 01/08/17 08:00 01/08/17 08:00 01/08/17 08:00 01/08/17 08:00 Intake and Output: 01/08/17 01/08/17 06:59 18:59 Intake Total 240 Balance 240 - Medications Medications: Current Medications Chlordiazepoxide (Librium) 10 mg PO Q12 [facility] PRN Reason: Protocol Last Admin: 01/08/17 09:37 Dose: 10 mg Sodium Chloride (Sodium Chloride 0.9%) 1,000 mls @ 150 mls/hr IV .Q6H40M [facility] Last Admin: 01/08/17 09:38 Dose: 150 mls/hr Lactulose (Enulose) 20 gm PO BID [facility] Last Admin: 01/08/17 09:36 Dose: 20 gm Lorazepam (Ativan) 1 mg IVP Q2 PRN; Protocol PRN Reason: Agitation Last Admin: 01/07/17 23:56 Dose: 1 mg Ondansetron HCl (Zofran Inj) 4 mg IVP Q6H PRN PRN Reason: Nausea/Vomiting Ondansetron HCl (Zofran Inj) 4 mg IVP ONCE PRN PRN Reason: Nausea/Vomiting Pantoprazole Sodium (Protonix Inj) 40 mg IVP Q12 [facility] Last Admin: 01/08/17 09:36 Dose: 40 mg Pentoxifylline (Pentoxil) 400 mg PO TID [facility] Last Admin: 01/08/17 10:23 Dose: 400 mg Rifaximin (Xifaxan) 550 mg PO BID [facility] PRN Reason: Protocol Last Admin: 01/08/17 09:37 Dose: 550 mg Sucralfate (Carafate Oral Susp) 1 gm PO ACHS [facility] Last Admin: 01/08/17 08:30 Dose: 1 gm - Labs Labs: 01/08/17 07:30 01/08/17 07:30 PT 15.5 Seconds (9.9-11.8) H 01/08/17 07:30 INR 1.44 (0.93-1.08) H 01/08/17 07:30 APTT 29.4 Seconds (23.7-30.8) 01/08/17 07:30 Attending/Attestation - Attestation I have personally seen and examined this patient.: Yes I have fully participated in the care of the patient.: Yes I have reviewed all pertinent clinical information, including history, physical exam and plan: Yes Notes (Text): I have seen and examined patient with the resident in ICU. Agree with the above note with the following additions/ exceptions: Briefly this is 51 year old male with history of GI bleed, gastric ulcers, hepatic encephalopathy, cirrhosis, Hep C (known and untreated), noncompliance with follow up and alcohol abuse who was brought for evaluation of generalized weakness, hematemesis, hematochezia and found to have severe symptomatic anemia (4.8 on admission). He was given 6 units. Repeat Hb is stable. He is oriented x3. EGD revealed esophagitis in distal esophagus and non bleeding 25 mm gastric ulcer in antrum. Discontinue protonix drip and octreotide drip. Patient was started on po protonix and carafate. He needs to have repeat endoscopy in 2 months. Continue lactulose, rifaxamin, pentoxifylline and lasix. He is afebrile. Blood cultures and urine cultures negative. Stop antibiotics. Will monitor for alcohol withdrawal. LE ultrasound negative. Echo revealed EF of 47%, LVH, moderate Pulmonary hypertension. CT abdomen/ pelvis revealed Fracture deformity at left pubic symphysis and left inferior ramus and multiple rib fractures. Awaiting for ortho consult. PT recommended [facility]. Will discuss with bilingual patient support caseworker. Currently patient is not a candidate for liver transplant due to continuous alcohol abuse. Patient will be advised to follow-up with [facility] clinic and [facility] hepatology/ hepatitis C clinic upon discharge. Dr Valentina Santizo
[2017-01-08 18:08] VITALS: RESP 20
--- NOTE | 2017-01-08 21:28 | CP.PCM.PN ---
Subjective - Date & Time of Evaluation Date of Evaluation: 01/08/17 Time of Evaluation: 10:40 - Subjective Subjective: Comfortable, not in distress, no vomiting, no fevers overnight. Objective - Vital Signs/Intake and Output Vital Signs (last 24 hours): Temp Pulse Resp BP Pulse Ox 99 F 103 H 20 137/87 96 01/08/17 16:00 01/08/17 16:00 01/08/17 16:00 01/08/17 16:00 01/08/17 16:00 Intake and Output: 01/08/17 01/09/17 18:59 06:59 Intake Total 1440 Balance 1440 - Medications Medications: Current Medications Chlordiazepoxide (Librium) 10 mg PO Q12 [facility] PRN Reason: Protocol Last Admin: 01/08/17 09:37 Dose: 10 mg Sodium Chloride (Sodium Chloride 0.9%) 1,000 mls @ 150 mls/hr IV .Q6H40M [facility] Last Admin: 01/08/17 09:38 Dose: 150 mls/hr Lactulose (Enulose) 20 gm PO BID [facility] Last Admin: 01/08/17 18:26 Dose: 20 gm Lorazepam (Ativan) 1 mg IVP Q2 PRN; Protocol PRN Reason: Agitation Last Admin: 01/07/17 23:56 Dose: 1 mg Ondansetron HCl (Zofran Inj) 4 mg IVP Q6H PRN PRN Reason: Nausea/Vomiting Ondansetron HCl (Zofran Inj) 4 mg IVP ONCE PRN PRN Reason: Nausea/Vomiting Pantoprazole Sodium (Protonix Inj) 40 mg IVP Q12 [facility] Last Admin: 01/08/17 09:36 Dose: 40 mg Pentoxifylline (Pentoxil) 400 mg PO TID [facility] Last Admin: 01/08/17 18:25 Dose: 400 mg Rifaximin (Xifaxan) 550 mg PO BID [facility] PRN Reason: Protocol Last Admin: 01/08/17 18:25 Dose: 550 mg Sucralfate (Carafate Oral Susp) 1 gm PO ACHS [facility] Last Admin: 01/08/17 17:00 Dose: Not Given - Labs Labs: 01/08/17 07:30 01/08/17 07:30 PT 15.5 Seconds (9.9-11.8) H 01/08/17 07:30 INR 1.44 (0.93-1.08) H 01/08/17 07:30 APTT 29.4 Seconds (23.7-30.8) 01/08/17 07:30 - Constitutional Appears: Non-toxic, No Acute Distress - Head Exam Head Exam: NORMAL INSPECTION - Respiratory Exam Respiratory Exam: Decreased Breath Sounds - Cardiovascular Exam Cardiovascular Exam: +S1, +S2 - GI/Abdominal Exam GI & Abdominal Exam: Soft. absent: Tenderness Assessment and Plan - Assessment and Plan (Free Text) Plan: Assessment Systemic Inflammatory Response Syndrome (tachypnea, tachycardia, leuekocytosis) , consider secondary to acute GI bleeding from esophageal and gastric ulcers without evidence of esophageal varices chronic hepatitis C (has not been treated) chronic ethanol abuse history of GI bleed in the past history of delirium tremens history of gastric ulcers Plan will monitor off antibiotics since he is at risk for nosocomial infections
[2017-01-09 07:54] LABS: ADD MANUAL DIFF? NO
[2017-01-09 07:58] LABS: BASO # 0.04 K/mm3 (0.0-2.0); BASO % 0.4 % (0.0-3.0); EOS # 0.5 (0.0-0.7); EOS % 4.8 % (1.5-5.0); GRAN # 7.56 (1.4-6.5); GRAN % 77.2 % (50.0-68.0); HEMATOCRIT 28.7 % (42.0-52.0); LYMPH # 1.1 (1.2-3.4); MEAN CELL VOLUME 83.2 fL (80.0-105.0); MEAN CORPUSCULAR HEMOGLOBIN 27.5 pg (25.0-35.0); MEAN CORPUSCULAR HGB CONC 33.1 g/dl (31.0-37.0); MEAN PLATELET VOLUME 8.9 fl (7.0-11.0); MONO # 0.7 (0.1-0.6); MONO % 6.6 % (1.0-6.0); PLATELET COUNT 176 10^3/uL (120.0-450.0); RED CELL DISTRIBUTION WIDTH 20.6 % (11.5-14.5); WHITE BLOOD COUNT 9.8 10^3/ul (4.5-11.0)
[2017-01-09 08:08] LABS: ALB/GLOB RATIO 0.8 (1.1-1.8); ALKALINE PHOSPHATASE 165 U/L (38-133); ALT/SGPT 50 U/L (7-56); AST/SGOT 50 U/L (15-59); BLOOD UREA NITROGEN 5 mg/dL (7-21); CALCIUM 7.3 mg/dL (8.4-10.5); CARBON DIOXIDE 20 mmol/L (21-33); CHLORIDE 114 mmol/L (95-110); GFR AFRICAN-AMERICAN > 60; GLUCOSE,RANDOM 92 mg/dL (70-110); POTASSIUM 3.1 mmol/L (3.6-5.0); SODIUM 139 mmol/L (132-148); TOTAL PROTEIN 5.1 g/dL (5.8-8.3)
[2017-01-09 08:10] LABS: INR 1.54 (0.93-1.08); PARTIAL THROMBOPLASTIN TIME 30.1 Seconds (23.7-30.8)
[2017-01-09 08:17] VITALS: BP 130/88; PULSE 107; TEMP 98.7
[2017-01-09] MEDS ORDERED: Potassium Chloride 20 mEq ER Tab PO ONE (08:31)
[2017-01-09] MEDS: Sodium Chloride 0.9% 1,000 ML IV SCH ×5 (08:34→13:21)
[2017-01-09] MEDS: Sucralfate 1 gm/10 ml Oral Susp UD PO SCH ×2 (08:39→12:40)
--- NOTE | 2017-01-09 10:43 | CP.PCM.CON ---
History of Present Illness - History of Present Illness History of Present Illness: ORTHOPEDIC CONSULT NOTE FOR DR. HARTMAN: Mr. Diallo is a 51 yo male w/ pmhx significant for GI bleed, gastric ulcers, cirrhosis Hep C and ETOH abuse who was seen this morning at bedside following request for orthopedic evaluation. Pt states that he tripped on some pallets 3 weeks ago and fell on his left hip. Says that he has been able to walk but with pain. Currently rates the pain as a 6/10 on a VAS scale but does say that the pain medication is helping. Denies any other injuries from the fall. Denies any numbness or tingling to the back or lower extremities, denies any weakness at this time. Denies f/n/v/c/sob/cp however he does admit to some abdominal pain today. Review of Systems - Review of Systems Review of Systems: All systems reviewed and found to be negative except pertinent HPI findings above Past Patient History - Infectious Disease Hx of Infectious Diseases: None - Tetanus Immunizations Tetanus Immunization: Unknown - Past Social History Smoking Status: Never Smoked - CARDIAC Hx Cardiac Disorders: No - PULMONARY Hx Respiratory Disorders: Yes Other/Comment: Pt. had some type of lung infection 10 years ago - NEUROLOGICAL Hx Neurological Disorder: No - HEENT Hx HEENT Problems: No - RENAL Hx Chronic Kidney Disease: No - ENDOCRINE/METABOLIC Hx Endocrine Disorders: No - HEMATOLOGICAL/ONCOLOGICAL Hx Anemia: Yes Hx Blood Transfusions: Yes (november 2016) Hx Blood Transfusion Reaction: No Hx Cirrhosis: Yes Hx Hepatitis C: Yes - INTEGUMENTARY Hx Dermatological Problems: No - MUSCULOSKELETAL/RHEUMATOLOGICAL Hx Musculoskeletal Disorders: Yes Hx Falls: No Hx Fractures: Yes (old left shoulder and nose fracture) - GASTROINTESTINAL Hx Gastrointestinal Disorders: Yes Hx Vomiting: Yes Other/Comment: issue with liver. - GENITOURINARY/GYNECOLOGICAL Hx Genitourinary Disorders: No - PSYCHIATRIC Hx Psychophysiologic Disorder: No Hx Substance Use: No - SURGICAL HISTORY Other/Comment: nose surgery - ANESTHESIA Hx Anesthesia Reactions: No Hx Malignant Hyperthermia: No Meds Allergies/Adverse Reactions: Allergies Allergy/AdvReac Type Severity Reaction Status Date / Time No Known Allergies Allergy Verified 01/04/17 12:59 - Medications Medications: Current Medications Chlordiazepoxide (Librium) 5 mg PO Q12 PRN; Protocol PRN Reason: Anxiety Sodium Chloride (Sodium Chloride 0.9%) 1,000 mls @ 150 mls/hr IV .Q6H40M [facility] Last Admin: 01/09/17 08:36 Dose: 150 mls/hr Lactulose (Enulose) 20 gm PO BID [facility] Last Admin: 01/09/17 09:56 Dose: 20 gm Lorazepam (Ativan) 1 mg IVP Q2 PRN; Protocol PRN Reason: Agitation Last Admin: 01/07/17 23:56 Dose: 1 mg Ondansetron HCl (Zofran Inj) 4 mg IVP Q6H PRN PRN Reason: Nausea/Vomiting Last Admin: 01/08/17 23:31 Dose: 4 mg Ondansetron HCl (Zofran Inj) 4 mg IVP ONCE PRN PRN Reason: Nausea/Vomiting Pantoprazole Sodium (Protonix Inj) 40 mg IVP Q12 [facility] Last Admin: 01/09/17 09:56 Dose: 40 mg Pentoxifylline (Pentoxil) 400 mg PO TID [facility] Last Admin: 01/09/17 09:56 Dose: 400 mg Rifaximin (Xifaxan) 550 mg PO BID [facility] PRN Reason: Protocol Last Admin: 01/09/17 09:56 Dose: 550 mg Sucralfate (Carafate Oral Susp) 1 gm PO ACHS [facility] Last Admin: 01/09/17 08:39 Dose: 1 gm Physical Exam - Constitutional Appears: Non-toxic, No Acute Distress - Extremities Exam Extremities exam: Negative for: calf tenderness Additional comments: Left lower extremity exam: VASC- femoral and popliteal pulses are palpable, no edema noted DERM- no signs of ecchymosis, no open wounds or lacerations appreciated, no erythema NEURO- lower extremity sensation is grossly intact MSK: tenderness noted on palpation of lateral aspect of pubis hip, tenderness noted on palpation of posterior-lateral aspect of hip, tenderness noted with hip flexion, tenderness noted on hip internal and external rotation - Neurological Exam Neurological exam: Alert, CN II-XII Intact, Oriented x3 - Psychiatric Exam Psychiatric exam: Normal Affect, Normal Mood Results - Vital Signs Recent Vital Signs: Last Vital Signs Temp 98.7 F 01/09/17 08:16 Pulse 107 H 01/09/17 08:16 Resp 20 01/09/17 08:16 BP 130/88 01/09/17 08:16 Pulse Ox 96 01/09/17 08:16 - Labs Result Diagrams: 01/09/17 07:40 01/09/17 07:40 Labs: Laboratory Results - last 24 hr 01/08/17 01/09/17 01/09/17 10:30 07:40 07:40 WBC 9.8 D RBC 3.45 L Hgb 9.5 L Hct 28.7 L MCV 83.2 MCH 27.5 MCHC 33.1 RDW 20.6 H Plt Count 176 MPV 8.9 Gran % 77.2 H Lymph % (Auto) 11.0 L [place] % (Auto) 6.6 H Eos % (Auto) 4.8 Baso % (Auto) 0.4 Gran # 7.56 H Lymph # 1.1 L [place] # 0.7 H Eos # 0.5 Baso # 0.04 PT 16.6 H INR 1.54 H APTT 30.1 Sodium Potassium Chloride Carbon Dioxide Anion Gap BUN Creatinine Est GFR ( Amer) Est GFR (Non-Af Amer) Random Glucose Calcium Total Bilirubin AST ALT Alkaline Phosphatase Total Protein Albumin Globulin Albumin/Globulin Ratio Procalcitonin 0.12 L 01/09/17 07:40 WBC RBC Hgb Hct MCV MCH MCHC RDW Plt Count MPV Gran % Lymph % (Auto) [place] % (Auto) Eos % (Auto) Baso % (Auto) Gran # Lymph # [place] # Eos # Baso # PT INR APTT Sodium 139 Potassium 3.1 L Chloride 114 H Carbon Dioxide 20 L Anion Gap 8 L BUN 5 L Creatinine 0.5 Est GFR ( Amer) > 60 Est GFR (Non-Af Amer) > 60 Random Glucose 92 Calcium 7.3 L Total Bilirubin 2.0 H AST 50 ALT 50 Alkaline Phosphatase 165 H Total Protein 5.1 L Albumin 2.3 L Globulin 2.8 Albumin/Globulin Ratio 0.8 L Procalcitonin Assessment & Plan - Assessment and Plan (Free Text) Assessment: 51 yo male patient w/ fracture of left pubic symphasis and left inferior pubic ramus likely secondary to fall. Plan: -Pt S&E at bedside -Chart, labs and vitals reviewed -Abd/pelvis CT reviewed: Interval development of fracture deformity involving the left pubic symphysis and left inferior pubic ramus. -AP/Lat pelvis and AP/Lat left hip x-rays ordered -Pt is to be full WBAT to the left lower extremity -Pain meds per primary team -No acute orthopedic intervention indicated at this time -Pt advised to f/u with Dr. Hartman at the office 1 week. -Thank you for this consult and allowing us to participate in the care of this pt. -Millie Giron, PGY-1
--- NOTE | 2017-01-09 11:28 | PN ---
DATE: 01/09/2017 SUBJECTIVE: The patient is lying in bed, comfortable. He is tolerating solid foods. He has not had any signs of melena or GI bleeding. PHYSICAL EXAMINATION: VITAL SIGNS: Reveal temperature of 98.7, blood pressure 130/88, heart rate 107. ABDOMEN: Soft, nontender. LABORATORY DATA: Reveal hemoglobin 9.5, potassium 3.1. IMPRESSION: A 51-year-old male presenting to the hospital with profound anemia, GI bleeding, found t o have a large gastric ulcer, biopsies of the gastric ulcer are benign. His count has remained stabl e. He is an alcoholic. RECOMMENDATIONS: The patient is stable from GI and can be discharged home on pantoprazole 40 mg twice a day for at [facility] the next 3 months. I have asked him to follow up with his medical doctor for followup endoscopy. He did have a colonoscopy several months ago. Jf Galaviz MD cc: [id number] TT: 01/09/2017 11:27:24 Confirmation # [id number] Dictation # [id number]
--- NOTE | 2017-01-09 11:33 | RAD ---
PROCEDURE: Radiographs of the pelvis and bilateral hips HISTORY: fx of left pubic ramus COMPARISON: None. FINDINGS: BONES: Pelvis: Unremarkable. Right hip:Unremarkable. Left hip:Unremarkable. JOINTS: Right hip: Unremarkable. Left hip: Unremarkable. Sacroiliac Joints: Unremarkable. Pubic symphysis: Fractures are seen through the superior and inferior pubic rami on the left. SOFT TISSUES: Normal. OTHER FINDINGS: None. IMPRESSION: Minimally displaced fractures through the superior and inferior pubic rami on the left
--- NOTE | 2017-01-09 16:38 | CP.PCM.DIS ---
<Champ Mendenhall - Last Filed: 01/10/17 17:23> Provider - Provider Date of Admission: 01/04/17 14:52 Attending physician: Valentina Santizo MD Primary care physician: Jose Rollins MD Time Spent in preparation of Discharge (in minutes): 35 Diagnosis - Discharge Diagnosis (1) Alcohol abuse Status: Acute (2) Gastric ulcer Status: Acute Hospital Course - Lab Results Lab Results: Micro Results 01/07/17 18:18 Stool C. difficile Antigen & Toxin A,B (M - Final 01/04/17 17:30 Naris MRSA Culture (Admit) - Final MRSA NOT DETECTED Most Recent Lab Values WBC 9.8 10^3/ul (4.5-11.0) D 01/09/17 07:40 RBC 3.45 10^6/uL (3.5-6.1) L 01/09/17 07:40 Hgb 9.5 gm/dL (14.0-18.0) L 01/09/17 07:40 Hct 28.7 % (42.0-52.0) L 01/09/17 07:40 MCV 83.2 fL (80.0-105.0) 01/09/17 07:40 MCH 27.5 pg (25.0-35.0) 01/09/17 07:40 MCHC 33.1 g/dl (31.0-37.0) 01/09/17 07:40 RDW 20.6 % (11.5-14.5) H 01/09/17 07:40 Plt Count 176 10^3/uL (120.0-450.0) 01/09/17 07:40 MPV 8.9 fl (7.0-11.0) 01/09/17 07:40 Gran % 77.2 % (50.0-68.0) H 01/09/17 07:40 Lymph % (Auto) 11.0 % (22.0-35.0) L 01/09/17 07:40 [place]ergus % (Auto) 6.6 % (1.0-6.0) H 01/09/17 07:40 Eos % (Auto) 4.8 % (1.5-5.0) 01/09/17 07:40 Baso % (Auto) 0.4 % (0.0-3.0) 01/09/17 07:40 Gran # 7.56 (1.4-6.5) H 01/09/17 07:40 Lymph # 1.1 (1.2-3.4) L 01/09/17 07:40 Fergus # 0.7 (0.1-0.6) H 01/09/17 07:40 Eos # 0.5 (0.0-0.7) 01/09/17 07:40 Baso # 0.04 K/mm3 (0.0-2.0) 01/09/17 07:40 Neutrophils % (Manual) 65 % (50.0-70.0) 01/05/17 02:10 Band Neutrophils % 3 % (0-2) H 01/05/17 02:10 Lymphocytes % (Manual) 19 % (22.0-35.0) L 01/05/17 02:10 Monocytes % (Manual) 11 % (1.0-6.0) H 01/05/17 02:10 Eosinophils % (Manual) 2 % (0.0-3.0) 01/05/17 02:10 Platelet Evaluation Normal (NORMAL) 01/05/17 02:10 Large Platelets Present 01/05/17 02:10 Polychromasia 1+ 01/05/17 02:10 Hypochromasia 2+ 01/05/17 02:10 Anisocytosis (manual) 2+ 01/05/17 02:10 Microcytosis (manual) 3+ 01/05/17 02:10 Target Cells Slight 01/05/17 02:10 Tear Drop Cells Slight 01/05/17 02:10 Acanthocytes (Spur) Slight 01/05/17 02:10 PT 16.6 Seconds (9.9-11.8) H 01/09/17 07:40 INR 1.54 (0.93-1.08) H 01/09/17 07:40 APTT 30.1 Seconds (23.7-30.8) 01/09/17 07:40 pO2 34 mm/Hg (30-55) 01/04/17 17:15 VBG pH 7.37 (7.32-7.43) 01/04/17 17:15 VBG pCO2 28.0 (40-60) L 01/04/17 17:15 VBG HCO3 16.2 mmol/l (21-28) L 01/04/17 17:15 VBG Total CO2 17.1 mmol.L (22-28) L 01/04/17 17:15 VBG O2 Sat (Calc) 72.8 % (40-65) H 01/04/17 17:15 VBG Base Excess -8.5 mmol/L (0.0-2.0) L 01/04/17 17:15 VBG Potassium 4.9 mmol/L (3.6-5.2) 01/04/17 17:15 Sodium 139.0 mmol/L (132-148) 01/04/17 17:15 Chloride 120.0 mmol/L (98-107) H 01/04/17 17:15 Glucose 109 mg/dl (75-110) 01/04/17 17:15 Lactate 4.9 mmol/L (0.7-2.1) H* 01/04/17 17:15 FiO2 21.0 % 01/04/17 17:15 Sodium 139 mmol/L (132-148) 01/09/17 07:40 Potassium 3.1 mmol/L (3.6-5.0) L 01/09/17 07:40 Chloride 114 mmol/L (95-110) H 01/09/17 07:40 Carbon Dioxide 20 mmol/L (21-33) L 01/09/17 07:40 Anion Gap 8 (10-20) L 01/09/17 07:40 BUN 5 mg/dL (7-21) L 01/09/17 07:40 Creatinine 0.5 mg/dL (0.5-1.4) 01/09/17 07:40 Est GFR ( Amer) > 60 01/09/17 07:40 Est GFR (Non-Af Amer) > 60 01/09/17 07:40 POC Glucose (mg/dL) 121 mg/dL (65-110) H 01/04/17 13:11 Random Glucose 92 mg/dL (70-110) 01/09/17 07:40 Calcium 7.3 mg/dL (8.4-10.5) L 01/09/17 07:40 Phosphorus 2.7 mg/dL (2.5-4.5) 01/08/17 10:15 Magnesium 2.1 mg/dL (1.7-2.2) 01/08/17 10:15 Total Bilirubin 2.0 mg/dL (0.2-1.3) H 01/09/17 07:40 AST 50 U/L (15-59) 01/09/17 07:40 ALT 50 U/L (7-56) 01/09/17 07:40 Alkaline Phosphatase 165 U/L (38-133) H 01/09/17 07:40 Ammonia 28 umol/L (9-33) 01/08/17 09:00 Lactate Dehydrogenase 561 U/L (333-699) 01/04/17 13:56 Total Creatine Kinase 38 U/L (35-230) 01/04/17 13:56 Troponin I 0.04 ng/mL D 01/04/17 13:56 Total Protein 5.1 g/dL (5.8-8.3) L 01/09/17 07:40 Albumin 2.3 g/dL (3.0-4.8) L 01/09/17 07:40 Globulin 2.8 gm/dL 01/09/17 07:40 Albumin/Globulin Ratio 0.8 (1.1-1.8) L 01/09/17 07:40 Amylase 96 U/L (35-125) 01/04/17 13:56 Lipase 399 U/L (23-300) H 01/04/17 13:56 Procalcitonin 0.12 NG/ML (0.19-0.49) L 01/08/17 10:30 Venous Blood Potassium 4.9 mmol/L (3.6-5.2) 01/04/17 17:15 Urine Color Yellow (YELLOW) 01/04/17 13:53 Urine Appearance Clear (CLEAR) 01/04/17 13:53 Urine pH 6.0 (4.7-8.0) 01/04/17 13:53 Ur Specific [place] 1.020 (1.005-1.035) 01/04/17 13:53 Urine Protein Negative mg/dL (<30 mg/dL) 01/04/17 13:53 Urine Glucose (UA) Negative mg/dL (NEGATIVE) 01/04/17 13:53 Urine Ketones Negative mg/dL (NEGATIVE) 01/04/17 13:53 Urine Blood Negative (NEGATIVE) 01/04/17 13:53 Urine Nitrate Negative (NEGATIVE) 01/04/17 13:53 Urine Bilirubin Negative (NEGATIVE) 01/04/17 13:53 Urine Urobilinogen 0.2 E.U./dL (<1 E.U./dL) 01/04/17 13:53 Ur Leukocyte Esterase Negative Clifford/uL (NEGATIVE) 01/04/17 13:53 Stool Occult Blood Positive (NEGATIVE) H 01/04/17 18:55 Urine Opiates Screen Negative (NEGATIVE) 01/04/17 16:10 Urine Methadone Screen Negative (NEGATIVE) 01/04/17 16:10 Ur Barbiturates Screen Negative (NEGATIVE) 01/04/17 16:10 Ur Phencyclidine Scrn Negative (NEGATIVE) 01/04/17 16:10 Ur Amphetamines Screen Negative (NEGATIVE) 01/04/17 16:10 U Benzodiazepines Scrn Negative (NEGATIVE) 01/04/17 16:10 U Oth Cocaine Metabols Negative (NEGATIVE) 01/04/17 16:10 U Cannabinoids Screen Positive (NEGATIVE) H 01/04/17 16:10 Alcohol, Quantitative < 10 mg/dL (0-10) 01/04/17 13:56 Blood Type A POSITIVE 01/04/17 14:30 Antibody Screen Negative 01/04/17 14:30 Crossmatch See Detail 01/04/17 14:30 BBK History Checked Patient has bt 01/04/17 14:30 - Hospital Course Hospital Course: 51 yo M with PMHx of GI bleed, gastric ulcer, esophageal varices, cirrhosis, hepatitis C, EtOH abuse presented to ED C/O dizziness, confusion, fatigue generalized weakness, hematemesis, and hematochezia. He also had B/L LE swelling. In the ED, Pt received IVF, Protonix, Zofran, and Zosyn. He was then transferred to ICU, monitored for hemodynamic status and CBC, and transfused pRBC x6. Hb improved from 6.2 at admission to 9.5 at D/C, and NH3 improved from 83 to 38. Urine, blood, and nares Cx as well as C. difficile antigen and toxin were all negative. In the ICU, Pt ceased to vomit or defecate red blood. Mental status gradually improved from somnolence and confusion ([place] stage 1) to greater alertness and orientation ([place] stage 0). At admission , CXR was normal, ECG showed sinus tachycardia, LE U/S was negative for DVT, EGD showed esophagitis and antral gastritis with ulcer Bx, and abdominal-pelvic CT showed Fx of L ribs 8-10, L pubic symphysis, L inferior pubic ramus, ascites , cirrhosis with 15 mm R lobe hypodense lesion, splenomegaly, and pelvic XR showing the same minimally displaced Fx. Orthopedic Sx was consulted and recommended outpatient F/U as Pt is ambulatory but limping. Internal medicine recommended Pt F/U outpatient in EtOH cessation program, physical rehabilitation. Pt claims he will be going to EtOH cessation program. This is a brief account of his stay. For more information, please see his chart. - Date & Time of H&P Date of H&P: 01/09/17 Time of H&P: 09:00 Discharge Exam - Head Exam Head Exam: NORMAL INSPECTION - Eye Exam Eye Exam: EOMI, Normal appearance - Respiratory Exam Respiratory Exam: Clear to PA & Lateral, NORMAL BREATHING PATTERN - Cardiovascular Exam Cardiovascular Exam: REGULAR RHYTHM, RRR, +S1, +S2. absent: JVD - GI/Abdominal Exam GI & Abdominal Exam: Normal Bowel Sounds, Soft. absent: Tenderness - Extremities Exam Extremities exam: full ROM - Back Exam Back exam: absent: CVA tenderness (L), CVA tenderness (R) - Neurological Exam Neurological exam: Alert, CN II-XII Intact, Normal Gait, Oriented x3, Reflexes Normal - Psychiatric Exam Psychiatric exam: Normal Affect, Normal Mood - Skin Skin Exam: Dry, Intact, Normal Color, Warm Discharge Plan - Follow Up Plan Condition: CRITICAL Disposition: HOME/ ROUTINE Instructions: Gastrointestinal Bleeding (DC), Cirrhosis (DC), Hepatitis C (DC) , Regular Diet (DC), Alcohol Intoxication (DC) Additional Instructions: Patient is medically stable for discharge. Please follow up with orthopedist, Dr. Hartman at office within 1 week. Please follow up with GastroIntestinal doctor, Dr. Galaviz within 2 weeks to setup appointment for Endoscopy and Colonoscopy. Please follow up with your primary care doctor within 1 week. Please take Protonix 40mg twice daily. Please take Sucralfate 1gm once daily. Please stop drinking alcohol. Thank you for allowing us to take part in your care. Referrals: Jose Rollins MD [Primary Care Provider] - Follow up with primary Jf Galaviz MD [Staff Provider] - Kim Hartman MD [Staff Provider] - <Valentina Santizo - Last Filed: 01/11/17 16:28> Provider - Provider Date of Admission: 01/04/17 14:52 Attending physician: Valentina Santizo MD Primary care physician: Jose Rollins MD Hospital Course - Lab Results Lab Results: Micro Results 01/07/17 18:18 Stool Stool Culture - Final NO SALMONELLA, SHIGELLA OR CAMPYLOBACTER ISOLATED. 01/07/17 18:18 Stool C. difficile Antigen & Toxin A,B (M - Final 01/04/17 17:30 Naris MRSA Culture (Admit) - Final MRSA NOT DETECTED Most Recent Lab Values WBC 9.8 10^3/ul (4.5-11.0) D 01/09/17 07:40 RBC 3.45 10^6/uL (3.5-6.1) L 01/09/17 07:40 Hgb 9.5 gm/dL (14.0-18.0) L 01/09/17 07:40 Hct 28.7 % (42.0-52.0) L 01/09/17 07:40 MCV 83.2 fL (80.0-105.0) 01/09/17 07:40 MCH 27.5 pg (25.0-35.0) 01/09/17 07:40 MCHC 33.1 g/dl (31.0-37.0) 01/09/17 07:40 RDW 20.6 % (11.5-14.5) H 01/09/17 07:40 Plt Count 176 10^3/uL (120.0-450.0) 01/09/17 07:40 MPV 8.9 fl (7.0-11.0) 01/09/17 07:40 Gran % 77.2 % (50.0-68.0) H 01/09/17 07:40 Lymph % (Auto) 11.0 % (22.0-35.0) L 01/09/17 07:40 [place] % (Auto) 6.6 % (1.0-6.0) H 01/09/17 07:40 Eos % (Auto) 4.8 % (1.5-5.0) 01/09/17 07:40 Baso % (Auto) 0.4 % (0.0-3.0) 01/09/17 07:40 Gran # 7.56 (1.4-6.5) H 01/09/17 07:40 Lymph # 1.1 (1.2-3.4) L 01/09/17 07:40 [place] # 0.7 (0.1-0.6) H 01/09/17 07:40 Eos # 0.5 (0.0-0.7) 01/09/17 07:40 Baso # 0.04 K/mm3 (0.0-2.0) 01/09/17 07:40 Neutrophils % (Manual) 65 % (50.0-70.0) 01/05/17 02:10 Band Neutrophils % 3 % (0-2) H 01/05/17 02:10 Lymphocytes % (Manual) 19 % (22.0-35.0) L 01/05/17 02:10 Monocytes % (Manual) 11 % (1.0-6.0) H 01/05/17 02:10 Eosinophils % (Manual) 2 % (0.0-3.0) 01/05/17 02:10 Platelet Evaluation Normal (NORMAL) 01/05/17 02:10 Large Platelets Present 01/05/17 02:10 Polychromasia 1+ 01/05/17 02:10 Hypochromasia 2+ 01/05/17 02:10 Anisocytosis (manual) 2+ 01/05/17 02:10 Microcytosis (manual) 3+ 01/05/17 02:10 Target Cells Slight 01/05/17 02:10 Tear Drop Cells Slight 01/05/17 02:10 Acanthocytes (Spur) Slight 01/05/17 02:10 PT 16.6 Seconds (9.9-11.8) H 01/09/17 07:40 INR 1.54 (0.93-1.08) H 01/09/17 07:40 APTT 30.1 Seconds (23.7-30.8) 01/09/17 07:40 pO2 34 mm/Hg (30-55) 01/04/17 17:15 VBG pH 7.37 (7.32-7.43) 01/04/17 17:15 VBG pCO2 28.0 (40-60) L 01/04/17 17:15 VBG HCO3 16.2 mmol/l (21-28) L 01/04/17 17:15 VBG Total CO2 17.1 mmol.L (22-28) L 01/04/17 17:15 VBG O2 Sat (Calc) 72.8 % (40-65) H 01/04/17 17:15 VBG Base Excess -8.5 mmol/L (0.0-2.0) L 01/04/17 17:15 VBG Potassium 4.9 mmol/L (3.6-5.2) 01/04/17 17:15 Sodium 139.0 mmol/L (132-148) 01/04/17 17:15 Chloride 120.0 mmol/L (98-107) H 01/04/17 17:15 Glucose 109 mg/dl (75-110) 01/04/17 17:15 Lactate 4.9 mmol/L (0.7-2.1) H* 01/04/17 17:15 FiO2 21.0 % 01/04/17 17:15 Sodium 139 mmol/L (132-148) 01/09/17 07:40 Potassium 3.1 mmol/L (3.6-5.0) L 01/09/17 07:40 Chloride 114 mmol/L (95-110) H 01/09/17 07:40 Carbon Dioxide 20 mmol/L (21-33) L 01/09/17 07:40 Anion Gap 8 (10-20) L 01/09/17 07:40 BUN 5 mg/dL (7-21) L 01/09/17 07:40 Creatinine 0.5 mg/dL (0.5-1.4) 01/09/17 07:40 Est GFR ( Amer) > 60 01/09/17 07:40 Est GFR (Non-Af Amer) > 60 01/09/17 07:40 POC Glucose (mg/dL) 121 mg/dL (65-110) H 01/04/17 13:11 Random Glucose 92 mg/dL (70-110) 01/09/17 07:40 Calcium 7.3 mg/dL (8.4-10.5) L 01/09/17 07:40 Phosphorus 2.7 mg/dL (2.5-4.5) 01/08/17 10:15 Magnesium 2.1 mg/dL (1.7-2.2) 01/08/17 10:15 Total Bilirubin 2.0 mg/dL (0.2-1.3) H 01/09/17 07:40 AST 50 U/L (15-59) 01/09/17 07:40 ALT 50 U/L (7-56) 01/09/17 07:40 Alkaline Phosphatase 165 U/L (38-133) H 01/09/17 07:40 Ammonia 28 umol/L (9-33) 01/08/17 09:00 Lactate Dehydrogenase 561 U/L (333-699) 01/04/17 13:56 Total Creatine Kinase 38 U/L (35-230) 01/04/17 13:56 Troponin I 0.04 ng/mL D 01/04/17 13:56 Total Protein 5.1 g/dL (5.8-8.3) L 01/09/17 07:40 Albumin 2.3 g/dL (3.0-4.8) L 01/09/17 07:40 Globulin 2.8 gm/dL 01/09/17 07:40 Albumin/Globulin Ratio 0.8 (1.1-1.8) L 01/09/17 07:40 Amylase 96 U/L (35-125) 01/04/17 13:56 Lipase 399 U/L (23-300) H 01/04/17 13:56 Procalcitonin 0.12 NG/ML (0.19-0.49) L 01/08/17 10:30 Venous Blood Potassium 4.9 mmol/L (3.6-5.2) 01/04/17 17:15 Urine Color Yellow (YELLOW) 01/04/17 13:53 Urine Appearance Clear (CLEAR) 01/04/17 13:53 Urine pH 6.0 (4.7-8.0) 01/04/17 13:53 Ur Specific [place] 1.020 (1.005-1.035) 01/04/17 13:53 Urine Protein Negative mg/dL (<30 mg/dL) 01/04/17 13:53 Urine Glucose (UA) Negative mg/dL (NEGATIVE) 01/04/17 13:53 Urine Ketones Negative mg/dL (NEGATIVE) 01/04/17 13:53 Urine Blood Negative (NEGATIVE) 01/04/17 13:53 Urine Nitrate Negative (NEGATIVE) 01/04/17 13:53 Urine Bilirubin Negative (NEGATIVE) 01/04/17 13:53 Urine Urobilinogen 0.2 E.U./dL (<1 E.U./dL) 01/04/17 13:53 Ur Leukocyte Esterase Negative Clifford/uL (NEGATIVE) 01/04/17 13:53 Stool Occult Blood Positive (NEGATIVE) H 01/04/17 18:55 Urine Opiates Screen Negative (NEGATIVE) 01/04/17 16:10 Urine Methadone Screen Negative (NEGATIVE) 01/04/17 16:10 Ur Barbiturates Screen Negative (NEGATIVE) 01/04/17 16:10 Ur Phencyclidine Scrn Negative (NEGATIVE) 01/04/17 16:10 Ur Amphetamines Screen Negative (NEGATIVE) 01/04/17 16:10 U Benzodiazepines Scrn Negative (NEGATIVE) 01/04/17 16:10 U Oth Cocaine Metabols Negative (NEGATIVE) 01/04/17 16:10 U Cannabinoids Screen Positive (NEGATIVE) H 01/04/17 16:10 Alcohol, Quantitative < 10 mg/dL (0-10) 01/04/17 13:56 Blood Type A POSITIVE 01/04/17 14:30 Antibody Screen Negative 01/04/17 14:30 Crossmatch See Detail 01/04/17 14:30 BBK History Checked Patient has bt 01/04/17 14:30 Attending/Attestation - Attestation I have personally seen and examined this patient.: Yes I have fully participated in the care of the patient.: Yes I have reviewed all pertinent clinical information, including history, physical exam and plan: Yes Notes (Text): I have seen and examined patient with the resident in ICU. Agree with the above note with the following additions/ exceptions: Briefly this is 51 year old male with history of GI bleed, gastric ulcers, hepatic encephalopathy, cirrhosis, Hep C (known and untreated), noncompliance with follow up and alcohol abuse who was brought for evaluation of generalized weakness, hematemesis, hematochezia and found to have severe symptomatic anemia (4.8 on admission). He was given 6 units. Repeat Hb is stable. He is oriented x3. EGD revealed esophagitis in distal esophagus and non bleeding 25 mm gastric ulcer in antrum. Patient was started on po protonix and carafate. He needs to have repeat endoscopy in 2 months. Continue lactulose and lasix. He is afebrile. Blood cultures and urine cultures negative. LE ultrasound negative. He also was found to have CHF due to systolic dysfunction. Echo revealed EF of 47%, LVH, moderate Pulmonary hypertension. CT abdomen/ pelvis revealed Fracture deformity at left pubic symphysis and left inferior ramus and multiple rib fractures. Ortho recommended outpatient follow up. PT recommended HWS. Patient was provided with cane and outpatient physical therapy script was given. Currently patient is not a candidate for liver transplant due to continuous alcohol abuse. Patient will be advised to follow-up with [facility] and [facility] hepatology/ hepatitis C clinic upon discharge. Dr Valentina Santizo
== END 2017-01-09 14:37 | disposition home or self-care (01) | DRG 552 ==
LOC: ED 12:53 → ERH 14:52 → CCU 16:33 → 5RSO 01-07 18:29
PROVIDERS: ADMIT Internal Medicine; ATTEND Hospitalist
PROC: 30233N1 Transfusion of Nonautologous Red Blood Cells into Peripheral Vein, Percutaneous Approach (ICD-10-PCS; 2017-01-04)
PROC: 0DB68ZX Excision of Stomach, Via Natural or Artificial Opening Endoscopic, Diagnostic (ICD-10-PCS; principal; 2017-01-06 12:30)
DX: K25.4 Chronic or unspecified gastric ulcer with hemorrhage (principal); K72.90 Hepatic failure, unspecified without coma; R65.11 Systemic inflammatory response syndrome (SIRS) of non-infectious origin with acute organ dysfunction; E87.2 Acidosis; S22.42XA Multiple fractures of ribs, left side, initial encounter for closed fracture; D64.9 Anemia, unspecified; D69.6 Thrombocytopenia, unspecified; I50.20 Unspecified systolic (congestive) heart failure; E87.5 Hyperkalemia; K70.31 Alcoholic cirrhosis of liver with ascites; B18.2 Chronic viral hepatitis C; F10.239 Alcohol dependence with withdrawal, unspecified; S32.502A Unspecified fracture of left pubis, initial encounter for closed fracture; I27.2 Other secondary pulmonary hypertension; R16.1 Splenomegaly, not elsewhere classified; F10.20 Alcohol dependence, uncomplicated; Y90.0 Blood alcohol level of less than 20 mg/100 ml; K20.9 Esophagitis, unspecified; Z91.19 Patient's noncompliance with other medical treatment and regimen; I85.10 Secondary esophageal varices without bleeding; W01.0XXA Fall on same level from slipping, tripping and stumbling without subsequent striking against object, initial encounter; Y93.9 Activity, unspecified; Y92.9 Unspecified place or not applicable; Y99.9 Unspecified external cause status

== ENCOUNTER 2017-01-13 08:30 | Emergency (ER) | payer MEDICAID ==
[2017-01-13 08:52] VITALS: TEMP 98.3; BMI 28.1
[2017-01-13] MEDS ORDERED: Sucralfate 1 gm/10 ml Oral Susp UD PO STA (09:10)
--- NOTE | 2017-01-13 09:28 | ED PDOC ---
Arrival/HPI - General Chief Complaint: Male Genitourinary Time Seen by Provider: 01/13/17 08:45 Historian: Patient - History of Present Illness Narrative History of Present Illness (Text): 01/13/17 09:02 A 51 year old male, whose past medical history includes Hepatitis C and peptic ulcers, presents to the emergency department complaining of bilateral lower extremity, abdominal and scrotal swelling. Patient reports the swelling started 3 days ago and has been worsening since. Patient also notes some bleeding in the stool, which he says is black. Patient says he was here recently and during that time he had hematemesis and hematochezia, which resolved prior to discharge. He had an endoscopy which showed ulcers and he was discharged on Protonix and sucralfate. He was treated with albumin infusions for his swelling but was not discharged on any diuretics. Currently the patient denies any hematemesis, fever, chills, chest pain, nausea, vomiting or any other complaints. Patient mentions he was unable to fill his prescriptions from his last visit because the pharmacy needs to contact his PMD first, and he states he was unable to see his PMD because the office was closed for the holiday. PMD: Dr. Rollins Time/Duration: Other (3 days) Symptom Onset: Gradual Symptom Course: Worsening Quality: Other Activities at Onset: Rest Context: Home Past Medical History - Provider Review Nursing Documentation Reviewed: Yes - Infectious Disease Hx of Infectious Diseases: None - Tetanus Immunization Tetanus Immunization: Unknown - Cardiac Hx Cardiac Disorders: No - Pulmonary Hx Respiratory Disorders: Yes Other/Comment: Pt. had some type of lung infection 10 years ago - Neurological Hx Neurological Disorder: No - HEENT Hx HEENT Disorder: No - Renal Hx Renal Disorder: No - Endocrine/Metabolic Hx Endocrine Disorders: No - Hematological/Oncological Hx Anemia: Yes Hx Blood Transfusions: Yes (november 2016) Hx Blood Transfusion Reaction: No Hx Cirrhosis: Yes Hx Hepatitis C: Yes - Integumentary Hx Dermatological Disorder: No - Musculoskeletal/Rheumatological Hx Musculoskeletal Disorders: Yes Hx Falls: No Hx Fractures: Yes (old left shoulder and nose fracture) - Gastrointestinal Hx Gastrointestinal Disorders: Yes Hx Vomiting: Yes Other/Comment: issue with liver. - Genitourinary/Gynecological Hx Genitourinary Disorders: No - Psychiatric Hx Psychophysiologic Disorder: No Hx Substance Use: No - Surgical History Other/Comment: nose surgery - Anesthesia Hx Anesthesia: Yes Hx Anesthesia Reactions: No Hx Malignant Hyperthermia: No - Suicidal Assessment Feels Threatened In Home Enviroment: No Family/Social History - Physician Review Nursing Documentation Reviewed: Yes Family/Social History: No Known Family HX Smoking Status: Never Smoked Hx Alcohol Use: Yes Hx Substance Use: No Hx Substance Use Treatment: No Allergies/Home Meds Allergies/Adverse Reactions: Allergies No Known Allergies Allergy (Verified 01/13/17 08:52) Review of Systems - Physician Review All systems were reviewed & negative as marked: Yes - Review of Systems Constitutional: absent: Fevers, Other (chills) Cardiovascular: Edema (bilateral lower extremities) Gastrointestinal: Hematochezia, Other (abdominal swelling). absent: Hematemesis Genitourinary Male: Other (scrotal swelling) Physical Exam - Physical Exam Narrative Physical Exam (Text): Constitutional: No acute distress. Head: Normocephalic. Atraumatic. Eyes: PERRL. ENT: Moist mucous membranes. Neck: Supple. Cardiovascular: Tachycardia. Chest: No tenderness. Respiratory: Clear to auscultation bilaterally. GI: Soft. Nontender. Distension. : Scrotal edema. Back: No CVA tenderness. Musculoskeletal: No tenderness of extremities. Bilateral lower extremity pitting edema. Skin: No rash. Neurologic: Alert and oriented x3, responds to all question appropriately. No focal deficit. Vital Signs Reviewed: Yes Vital Signs Temp Pulse Resp BP Pulse Ox 01/13/17 11:30 109 H 17 137/85 96 01/13/17 10:12 121 H 20 138/88 96 01/13/17 08:36 98.3 F 110 H 20 145/89 95 Temperature: Afebrile Blood Pressure: Normal Pulse: Tachycardic Respiratory Rate: Normal Appearance: Positive for: Well-Appearing, Non-Toxic, Comfortable Pain Distress: None Mental Status: Positive for: Alert and Oriented X 3 Medical Decision Making ED Course and Treatment: 01/13/17 09:02 Impression: A 51 year old male with abdomen, scrotal and bilateral lower extremity swelling. Patient with ongoing black stool. Plan: -- Labs -- Aldactone, Sucralfate, and Pantoprazole -- Reassess and disposition Progress Notes: 01/13/17 11:22 I discussed this case with Dr. Rollins on the phone, and he agrees with plan and states he can see patient in his office today so patient can be on the appropriate outpatient medications. I gave the patient a dose of protonix and sucralfate in the ER and also added spironolactone for his edema, which Dr. Rollins agreed with. Patient states he will go directly to Dr. Rollins's office, and I instructed him to return to the ED for worsening pain, fever, vomiting, chest pain, dyspnea, weakness, or any other problem. - Lab Interpretations Lab Results: 01/13/17 10:30 01/13/17 10:30 Lab Results 01/13/17 10:30: Sodium 138, Potassium 4.6, Chloride 107, Carbon Dioxide 26, Anion Gap 10, BUN 17, Creatinine 0.5, Est GFR ( Amer) > 60, Est GFR (Non- Af Amer) > 60, Random Glucose 104, Calcium 7.9 L, Total Bilirubin 1.2, AST 54, ALT 39, Alkaline Phosphatase 149 H, Total Protein 5.7 L, Albumin 2.5 L, Globulin 3.2, Albumin/Globulin Ratio 0.8 L 01/13/17 10:30: PT 14.7 H, INR 1.36 H, APTT 25.0 01/13/17 10:30: WBC 9.3, RBC 3.15 L, Hgb 8.6 L, Hct 26.3 L, MCV 83.5, MCH 27.3, MCHC 32.7, RDW 20.8 H, Plt Count 282, MPV 9.5, Gran % 76.9 H, Lymph % (Auto) 12.9 L, [place] % (Auto) 8.4 H, Eos % (Auto) 1.3 L, Baso % (Auto) 0.5, Gran # 7.12 H, Lymph # 1.2, [place] # 0.8 H, Eos # 0.1, Baso # 0.05 01/13/17 10:15: Blood Type A POSITIVE, Antibody Screen Negative, BBK History Checked Patient has bt I have reviewed the lab results: Yes - Medication Orders Current Medication Orders: Discontinued Medications Pantoprazole Sodium (Protonix Inj) 80 mg IVP STAT STA Stop: 01/13/17 09:11 Last Admin: 01/13/17 10:14 Dose: 80 mg Spironolactone (Aldactone) 25 mg PO STAT STA Stop: 01/13/17 09:22 Last Admin: 01/13/17 10:14 Dose: 25 mg Sucralfate (Carafate Oral Susp) 1 gm PO STAT STA Stop: 01/13/17 09:11 Last Admin: 01/13/17 10:14 Dose: 1 gm - Scribe Statement The provider has reviewed the documentation as recorded by the Antonioibe Darwin Salas Provider Scribe Attestation: All medical record entries made by the Scribe were at my direction and personally dictated by me. I have reviewed the chart and agree that the record accurately reflects my personal performance of the history, physical exam, medical decision making, and the department course for this patient. I have also personally directed, reviewed, and agree with the discharge instructions and disposition. Disposition/Present on Arrival - Present on Arrival Any Indicators Present on Arrival: No History of DVT/PE: No History of Uncontrolled Diabetes: No Urinary Catheter: No History of Decub. Ulcer: No History Surgical Site Infection Following: None - Disposition Have Diagnosis and Disposition been Completed?: Yes Diagnosis: Edema Disposition: HOME/ ROUTINE Disposition Time: 11:22 Patient Plan: Discharge Condition: STABLE Discharge Instructions (ExitCare): Cirrhosis (ED) Prescriptions: Spironolactone [Aldactone] 25 mg PO BID #10 tablet Referrals: Jose Rollins MD [Primary Care Provider] - Follow up with primary
[2017-01-13 10:44] VITALS: O2SAT 96
[2017-01-13 10:50] LABS: ADD MANUAL DIFF? NO
[2017-01-13 10:53] LABS: BASO # 0.05 K/mm3 (0.0-2.0); BASO % 0.5 % (0.0-3.0); EOS # 0.1 (0.0-0.7); EOS % 1.3 % (1.5-5.0); GRAN # 7.12 (1.4-6.5); GRAN % 76.9 % (50.0-68.0); HEMATOCRIT 26.3 % (42.0-52.0); LYMPH # 1.2 (1.2-3.4); LYMPH % 12.9 % (22.0-35.0); MEAN CELL VOLUME 83.5 fL (80.0-105.0); MEAN CORPUSCULAR HEMOGLOBIN 27.3 pg (25.0-35.0); MEAN CORPUSCULAR HGB CONC 32.7 g/dl (31.0-37.0); MEAN PLATELET VOLUME 9.5 fl (7.0-11.0); MONO # 0.8 (0.1-0.6); MONO % 8.4 % (1.0-6.0); PLATELET COUNT 282 10^3/uL (120.0-450.0); RED CELL DISTRIBUTION WIDTH 20.8 % (11.5-14.5); WHITE BLOOD COUNT 9.3 10^3/ul (4.5-11.0)
[2017-01-13 11:02] LABS: INR 1.36 (0.93-1.08)
[2017-01-13 11:03] LABS: ALB/GLOB RATIO 0.8 (1.1-1.8); ALKALINE PHOSPHATASE 149 U/L (38-133); ALT/SGPT 39 U/L (7-56); AST/SGOT 54 U/L (15-59); BILIRUBIN,TOTAL 1.2 mg/dL (0.2-1.3); BLOOD UREA NITROGEN 17 mg/dL (7-21); CALCIUM 7.9 mg/dL (8.4-10.5); CARBON DIOXIDE 26 mmol/L (21-33); CHLORIDE 107 mmol/L (98-107); GFR AFRICAN-AMERICAN > 60; GLUCOSE,RANDOM 104 mg/dL (70-110); POTASSIUM 4.6 mmol/L (3.6-5.0); SODIUM 138 mmol/L (132-148); TOTAL PROTEIN 5.7 g/dL (5.8-8.3)
[2017-01-13 11:32] VITALS: BP 137/85; PULSE 109; RESP 17
== END 2017-01-13 11:30 | disposition home or self-care (01) ==
LOC: ED 08:30
DX: R60.9 Edema, unspecified (principal)
CPT/HCPCS: 80053; 85025; 85610; 85730; 86850; 86900; 96374; 99284; C9113

== ENCOUNTER 2018-04-19 09:37 | Emergency (ER) | payer MEDICAID, OTHER ==
[2018-04-19 09:47] VITALS: RESP 18; BMI 25.8
[2018-04-19] MEDS ORDERED: TDAP Vaccine 0.5 mL Syr IM ONE (09:55)
[2018-04-19] MEDS ORDERED: Oxycodone/Acetaminophen 5/325 mg Tab PO STA (09:55)
[2018-04-19] MEDS ORDERED: Amoxicillin-Clav 875-125 mg Tab PO STA (09:56)
--- NOTE | 2018-04-19 10:26 | ED PDOC ---
Arrival/HPI - General Chief Complaint: Bite Time Seen by Provider: 04/19/18 09:49 Historian: Patient - History of Present Illness Narrative History of Present Illness (Text): 04/19/18 10:23 52yo male with no pmhx who present with complaint of dog bite to his left hand 3days ago. States he was bitten by his own dog, while trying to sedate the dog from another dog. States he has been cleaning the wound. He came to ED today because of the pain and swelling he have today. He is not up to date with his vaccination. Denies any fever, redness, discharge. Past Medical History - Provider Review Nursing Documentation Reviewed: Yes - Infectious Disease Hx of Infectious Diseases: None - Tetanus Immunization Tetanus Immunization: Unknown - Cardiac Hx Cardiac Disorders: No - Pulmonary Hx Respiratory Disorders: Yes Other/Comment: Pt. had some type of lung infection 10 years ago - Neurological Hx Neurological Disorder: No - HEENT Hx HEENT Disorder: No - Renal Hx Renal Disorder: No - Endocrine/Metabolic Hx Endocrine Disorders: No - Hematological/Oncological Hx Blood Disorders: Yes Hx Anemia: Yes Hx Blood Transfusions: Yes (november 2016) Hx Blood Transfusion Reaction: No Hx Cirrhosis: Yes Hx Hepatitis C: Yes - Integumentary Hx Dermatological Disorder: No - Musculoskeletal/Rheumatological Hx Musculoskeletal Disorders: Yes Hx Falls: No Hx Fractures: Yes (old left shoulder and nose fracture) - Gastrointestinal Hx Gastrointestinal Disorders: Yes Hx Vomiting: Yes Other/Comment: issue with liver. - Genitourinary/Gynecological Hx Genitourinary Disorders: No - Psychiatric Hx Psychophysiologic Disorder: No Hx Substance Use: No - Surgical History Other/Comment: nose surgery - Anesthesia Hx Anesthesia: Yes Hx Anesthesia Reactions: No Hx Malignant Hyperthermia: No - Suicidal Assessment Feels Threatened In Home Enviroment: No Family/Social History - Physician Review Nursing Documentation Reviewed: Yes Family/Social History: Unknown Family HX Smoking Status: Never Smoked Hx Alcohol Use: Yes Hx Substance Use: No Hx Substance Use Treatment: No Allergies/Home Meds Allergies/Adverse Reactions: Allergies No Known Allergies Allergy (Verified 01/13/17 08:52) Home Medications: Home Meds Medication Instructions Recorded Confirmed Multivit with Iron-Minerals 1 tab PO DAILY 04/19/18 04/19/18 [Multilex] Review of Systems - Physician Review All systems were reviewed & negative as marked: Yes - Review of Systems Constitutional: Normal Eyes: Normal ENT: Normal Respiratory: Normal Cardiovascular: Normal Gastrointestinal: Normal Genitourinary Male: Normal Musculoskeletal: Normal Skin: Other (Dog bite to left hand) Neurological: Normal Endocrine: Normal Hemo/Lymphatic: Normal Psychiatric: Normal Physical Exam Vital Signs Reviewed: Yes Vital Signs Temp Pulse Resp BP Pulse Ox 04/19/18 12:30 88 18 142/74 99 04/19/18 11:03 98.8 F 90 18 146/84 97 04/19/18 09:40 99.3 F 96 H 18 150/80 98 Temperature: Afebrile Blood Pressure: Normal Pulse: Regular Respiratory Rate: Normal Appearance: Positive for: Well-Appearing, Non-Toxic, Comfortable Pain Distress: None Mental Status: Positive for: Alert and Oriented X 3 - Systems Exam Head: Present: Atraumatic, Normocephalic Pupils: Present: PERRL Extroacular Muscles: Present: EOMI Conjunctiva: Present: Normal Mouth: Present: Moist Mucous Membranes Neck: Present: Normal Range of Motion Respiratory/Chest: Present: Clear to Auscultation, Good Air Exchange. No: Respiratory Distress, Accessory Muscle Use Cardiovascular: Present: Regular Rate and Rhythm, Normal S1, S2. No: Murmurs Abdomen: No: Tenderness, Distention, Peritoneal Signs Back: Present: Normal Inspection Upper Extremity: Present: Normal Inspection. No: Cyanosis, Edema Lower Extremity: Present: Normal Inspection. No: Edema Neurological: Present: GCS=15, CN II-XII Intact, Speech Normal Skin: Present: Warm, Dry, Normal Color, Abrasion (Healing abrasion noted to left volar/pineda hand with swelling. No erythema. No crepitus. No discharge noted.). No: Rashes Psychiatric: Present: Alert, Oriented x 3, Normal Insight, Normal Concentration Medical Decision Making ED Course and Treatment: 04/19/18 18:42 pt presented for stated history. He had a healing abrasion to his left volar and Pineda hand with prominent swelling. No erythema. No warmth. Pt was placed on abx and percocet was given in ED for pain Left hand xray was ordered to r/o fracture/gas IMPRESSION: No evidence of acute fracture or dislocation. No evidence of radiopaque foreign body in the soft tissue of the left hand. Pt was referred to his pmd/clinic and placed on abx. - RAD Interpretation Radiology Orders: 04/19/18 11:08 HAND LEFT 3 VIEWS ROUTINE [RAD] Stat - Medication Orders Current Medication Orders: Discontinued Medications Amoxicillin/Clavulanate Potassium (Augmentin 875 Mg-125 Mg Tab) 1 tab PO STAT STA PRN Reason: Protocol Stop: 04/19/18 09:57 Last Admin: 04/19/18 10:50 Dose: 1 tab Oxycodone/Acetaminophen (Percocet 5/325 Mg Tab) 1 tab PO STAT STA Stop: 04/19/18 09:56 Last Admin: 04/19/18 10:49 Dose: 1 tab [facility] Pain Assessment Document 04/19/18 10:49 DOMINGA (Rec: 04/19/18 10:50 DOMINGA [email or web address]) Pain Reassessment Is this a pain reassessment? No Sleep Is patient sleeping during reassessment? No Presence of Pain Presence of Pain Yes Re-Assess: [facility] Pain Assessment Document 04/19/18 11:49 DOMINGA (Rec: 04/19/18 12:32 DOMINGA [email or web address]) Pain Reassessment Is this a pain reassessment? Yes Sleep Is patient sleeping during reassessment? No Presence of Pain Presence of Pain Yes Description Description Intermittent Intensity of Pain at present 4 Tetanus/Reduced Diphtheria/Acell Pertussis (Boostrix Vaccine Inj) 0.5 ml IM .ONCE ONE Stop: 04/19/18 09:56 Last Admin: 04/19/18 10:50 Dose: 0.5 ml Immunization Registry Document 04/19/18 10:50 DOMINGA (Rec: 04/19/18 10:50 DOMINGA [email or web address]) Immunization Registry Consent Date 04/19/18 Disposition/Present on Arrival - Present on Arrival Any Indicators Present on Arrival: No History of DVT/PE: No History of Uncontrolled Diabetes: No Urinary Catheter: No History of Decub. Ulcer: No History Surgical Site Infection Following: None - Disposition Have Diagnosis and Disposition been Completed?: Yes Diagnosis: Dog bite Disposition: HOME/ ROUTINE Disposition Time: 10:30 Patient Plan: Discharge Condition: STABLE Discharge Instructions (ExitCare): Animal Bites (DC) Additional Instructions: Keep wound clean and dry Follow up with your doctor Return to ED for any fever, redness, discharge Prescriptions: Amoxicillin/Clavulanate [Augmentin 875 MG-125 MG] 1 tab PO BID #20 tab Naproxen [Naprosyn] 500 mg PO BID #20 tablet Referrals: Pilar Moss MD [Medical Doctor] - Follow up with primary [facility] at [facility] [place] [Outside] - Follow up with primary [facility] [Outside] - Follow up with primary Forms: [employer] (Bahraini)
[2018-04-19 11:04] VITALS: TEMP 98.8
--- NOTE | 2018-04-19 12:25 | RAD ---
PROCEDURE: Left Hand Radiographs. HISTORY: dog bite COMPARISON: None. FINDINGS: BONES: Normal. No fracture. JOINTS: Normal. No osteoarthritic changes. SOFT TISSUES: Normal. OTHER FINDINGS: None. IMPRESSION: No evidence of acute fracture or dislocation. No evidence of radiopaque foreign body in the soft tissue of the left hand.
[2018-04-19 12:47] VITALS: BP 142/74; PULSE 88; O2SAT 99
== END 2018-04-19 12:48 | disposition home or self-care (01) ==
LOC: ED 09:37
DX: S61.452A Open bite of left hand, initial encounter (principal); W54.0XXA Bitten by dog, initial encounter; Z23 Encounter for immunization